=== PATIENT | female | born 1975 | race Caucasian/White ===

== ENCOUNTER 2017-02-24 07:39 | Day surgery (SDC) | payer OTHER ==
[~2017-02-24] VITALS: Ht 157.5 cm; Wt 0.9 kg
[2017-02-24 08:27] LABS: BASOPHILS 0.6 % (0.0-2.0); EOSINOPHILS 1.1 % (0-7); HEMATOCRIT 38.3 % (36.0-48.0); HEMOGLOBIN 12.2 g/dL (12-16); IMMATURE GRANULOCYTES 0.2 % (0-5); LYMPHOCYTES 9.7 % (15-50); MCH 31.9 pg (26.0-34.0); MCHC 31.9 g/dL (31.0-37.0); MONOCYTES 8.5 % (2-11); NEUTROPHILS 79.9 % (40-80); PLATELET COUNT 281 10x3/uL (130-400); RBC 3.83 10x6/uL (4.00-5.40); RDW 18.2 % (11.5-14.5); WBC 10.2 10x3/uL (4.8-10.8)
[2017-02-24 08:33] LABS: APTT 23.9 SECONDS (22.8-39.4); INR 1.06 (0.85-1.17); PROTIME 13.6 SECONDS (11.6-15.0)
[2017-02-24 08:45] LABS: ANION GAP 20.8 mmol/L (8-16); CALCIUM 9.3 mg/dL (8.5-10.1); CARBON DIOXIDE 23.9 mmol/L (21.0-32.0); CREATININE - SERUM 3.6 mg/dL (0.6-1.3); POTASSIUM - SERUM 3.7 mmol/L (3.5-5.1)
--- NOTE | 2017-02-24 10:21 | NUR ---
0957 CALLED BROTHER PREM ESQUEDA FOR CONSENTS PATIENT UNABLE TO GIVE CONSENT PATIENT WITH APHASIA APPEARANCE VERBALLY. DID NOT KNOW NAME OR BIRTHDATE. CALLED LONG-TERM AND TALKED WITH PRADEEP PALUMBO LPN FOR INFORMATION ABOUT THE PATIENT. PATIENT WAS IN LONG-TERM FOR A MOOD DISORDER AND WENT INTO RENAL FAILURE HAD TO GO TO [facility] FOR A CVA CARODIT ARTERY OBSTRUCTION BOTH SIDES VENA CAVA THROMBOSIS AND A GI BLEED. ALSO HAD A GALLSTONE HAD GALLBLADDER REMOVED AND AN ERCP RECENTLY.INFORMATION OBTAINED ON HEALTH INFORMATION FROM LONG-TERM NURSE. Slime
[2017-02-24] MEDS ORDERED: EPOGEN2000 U/ML SQ (10:26)
[2017-02-24] MEDS ORDERED: VITAMIN B COMPL1 TAB PO (10:27)
[2017-02-24] MEDS ORDERED: LOMOTIL TABLET1 TAB PO (10:27)
[2017-02-24] MEDS ORDERED: RITALIN5 MG PT (10:28)
[2017-02-24] MEDS ORDERED: CHOLESTYRAMIN4 G/PK1 PO (10:28)
[2017-02-24] MEDS ORDERED: LIPITOR10 MG PO (10:29)
[2017-02-24 10:30] VITALS: BP 92/46; Ht 157.5 cm; Wt 0.9 kg
[2017-02-24] MEDS ORDERED: CARDIZEM 90 MG90 MG PO (10:31)
[2017-02-24] MEDS ORDERED: PACERONE100 MG PO (10:32)
[2017-02-24] MEDS ORDERED: HYDRALAZINE HC100 MG PO (10:33)
[2017-02-24] MEDS ORDERED: ZOFRAN ODT4 MG/UDTAB PO (10:33)
[2017-02-24] MEDS ORDERED: FOLIC ACID1 MG PO (10:35)
[2017-02-24] MEDS ORDERED: PROTONIX40 MG PO (10:35)
[2017-02-24] MEDS ORDERED: ABILIFY15 MG PO (10:35)
[2017-02-24] MEDS ORDERED: FERROUS SULFAT140 MG PT (10:36)
[2017-02-24] MEDS ORDERED: BISAC-EVAC10 MG/SUPP RC (10:38)
[2017-02-24] MEDS ORDERED: CODEINE SULFATE30 MG PT (10:40)
[2017-02-24] MEDS ORDERED: NORCO 7.5/325 T1 TA1 PT (10:40)
[2017-02-24] MEDS ORDERED: PHENERGAN6.25 MG/5 PO (10:41)
[2017-02-24] MEDS ORDERED: ACETAMINOPHEN325 MG PO (10:41)
[2017-02-24] MEDS ORDERED: REMERON30 MG PO (10:42)
[2017-02-24] MEDS ORDERED: VITAMIN B650 MG PO (10:43)
[2017-02-24] MEDS ORDERED: VITAMIN B-121000 MCG PO (10:43)
[2017-02-24] MEDS ORDERED: BACTRIM DS TABL1 TAB PT (10:45)
--- NOTE | 2017-02-24 10:48 | NUR ---
PT MED REC ENTERED FROM JAN THAT WE RECEIVED FROM [facility]
--- NOTE | 2017-02-24 11:04 | NUR ---
[facility] NURSE WAS PRADEEP PALUMBO LPN AND RECIVED NURSING INFORMATION AND ASKED [facility]ST [facility] DOSES. REPORTED THIS TO DR. NIELSEN WAS ABLE TO OBTAIN PHONE CONSENTS FROM BROTHER.HAS SMALL SCAB ON FOEHEAD AND AREA TO COCCYX.
--- NOTE | 2017-02-24 11:18 | NUR ---
1115 REPORTED SITUATION TO ANESTHESIA LEFT HEEL REDDENED AND DRESSING TO COCCYX AREA REPOSITIONED IN BED HEELS FLOATED AND TURNED TO RT SIDE. EXPLAINED PROCEDURE TO PATIENT.
[2017-02-24 11:34] LABS: HCG SERUM NEGATIVE (NEGATIVE)
--- NOTE | 2017-02-24 14:33 | NUR ---
REPORT GIVEN TO TONI ROY RN
--- NOTE | 2017-02-24 17:58 | NUR ---
1730 IV DC LINE FLUSHED WITH 1.200 HEPRIN
--- NOTE | 2017-03-05 07:35 | OP ---
PATIENT NAME: SAUL GUSTAFSON MEDICAL RECORD: [id number] :77 LOCATION:[facility] ADMISSION DATE: SURGEON: AZALIA NIELSEN MD DATE OF OPERATION: 02/24/2017 PREOPERATIVE DIAGNOSIS: End-stage renal disease, on chronic hemodialysis. POSTOPERATIVE DIAGNOSIS: End-stage renal disease, on chronic hemodialysis. OPERATION PERFORMED: Implantation of a right axillary-axillary loop 4-7 mm taper PTFE AV graft, axillary artery to axillary vein with the arterial limb, lateral and the venous limb medial. SURGEON: Azalia Nielsen MD ANESTHESIA: Regional block plus general with LMA per LAUNDRY FOLDER. REFERRING PHYSICIAN: Wilmer Albert MD. PREOPERATIVE NOTE: Ms. Gustafson is a 41-year-old white female, who I believe has had a stroke and is alf confined. She has renal failure and is on hemodialysis and needs long-term dialysis access. She is brought to the operating room at this time with plans to implant a graft in her right upper extremity. Under initially a regional block with the addition of LMA general anesthesia, the patient prepped and draped in sterile manner. I examined her with ultrasound using a Melvindale drain for a proximal venous tourniquet and nitroglycerin paste topically. Her blood vessels were extremely small, she had very small veins, even the axillary vein was small, the axillary artery is only about 3-4 mm in diameter. 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 I made a longitudinal incision in the medial aspect of the arm over the brachial artery and basilic vein and extended this up into the axilla as a hockey stick shaped incision and exposed the axillary artery and axillary vein which were a bit larger. These vessels were controlled with Silastic loops. The artery was occluded, opened and flushed proximally and distally with heparinized saline and then a 4-7 tapered Impra venous outflow PTFE graft was chosen and the arterial and bevelled and anastomosed to the artery with running 6-0 Prolene. After which, the anastomosis was further sealed with Evicel and then it was found to be hemostatic. The graft was aspirated and some clot retrieved. It was then flushed with heparinized saline and further flushing the artery proximally and distally with heparinized saline as well. The graft was placed in a superficial subcutaneous tunnel, brought back around and up medially to the axillary wound. It was bevelled and anastomosed end-to-side to the axillary vein with running 6-0 Prolene. Enseal or Evicel was used on that suture line as well and after release of all of the occluding loops and clamps satisfactory, flow was established in her AV graft despite low systemic blood pressure. One counter incision was made on the arm distally just above the antecubital space. These wounds were irrigated with Ancef and gentamicin solution, infiltrated and irrigated with 0.25% Marcaine with epinephrine and closed without the use of a drain approximating the deeper subcutaneous tissues with interrupted inverted 3-0 Vicryl and skin with running intracuticular 4-0 Monocryl and Dermabond glue. OPERATIVE REPORT [id number] SAUL GUSTAFSON The incisions were dressed with Maxorb Ag, Tegaderm and Cavilon skin prep and the patient awakened and taken to the recovery room with a functioning AV graft. There was no blood loss during the procedure. All sponges, instruments and needles were accounted for. No drain was used and no surgical specimen was submitted for histopathology. PLAN: The patient will be allowed to go home today. She will follow up with me in my office in 2 weeks. She will continue routine dialysis schedule. We expect that we should be able to access her new graft in about 2 weeks for access and soon after that; however catheter removed. She will continue her previous medications and renal diet. Also, I have asked that an order be called to the alf for tramadol 50 mg 1or 2 p.o. q.4 hours p.r.n. for pain. TRANSINT:[id number] Voice Confirmation ID: [id number] DOCUMENT ID: [id number] AZALIA NIELSEN MD at 0735 CC: [id number] DICTATION DATE: 02/24/17 161 CLERICAL ADMINISTRATIVE ASSISTANT: 02/24/171921 [facility] 02/24/17 [facility] [address] [id number]
== END 2017-02-24 17:50 | disposition other institution (70) ==
LOC: D.OPS 07:39
PROVIDERS: Anesthesiology; Surgery
DX: I12.0 Hypertensive chronic kidney disease with stage 5 chronic kidney disease or end stage renal disease (principal); N18.6 End stage renal disease; Z99.2 Dependence on renal dialysis; Z87.891 Personal history of nicotine dependence; Z86.73 Personal history of transient ischemic attack (TIA), and cerebral infarction without residual deficits

== ENCOUNTER 2017-03-13 12:48 | Inpatient (IN) | payer MEDICAID ==
[~2017-03-13] VITALS: Ht 157.5 cm; Wt 62.6 kg
[~2017-03-13 12:48] MED LIST: ABILIFY15 MG PO; ACETAMINOPHEN325 MG PO; BACTRIM DS TABL1 TAB PT; BISAC-EVAC10 MG/SUPP RC; CARDIZEM 90 MG90 MG PO; CHOLESTYRAMIN4 G/PK1 PO; CODEINE SULFATE30 MG PT; EPOGEN2000 U/ML SQ; FERROUS SULFAT140 MG PT; FOLIC ACID1 MG PO; HYDRALAZINE HC100 MG PO; LIPITOR10 MG PO; LOMOTIL TABLET1 TAB PO; NORCO 7.5/325 T1 TA1 PT; PACERONE100 MG PO; PHENERGAN6.25 MG/5 PO; PROTONIX40 MG PO; REMERON30 MG PO; RITALIN5 MG PT; VITAMIN B COMPL1 TAB PO; VITAMIN B-121000 MCG PO; VITAMIN B650 MG PO; ZOFRAN ODT4 MG/UDTAB PO
--- NOTE | 2017-03-13 12:54 | NUR ---
1245-RECEIVED VIA STRETCHER TO ROOM WITH MON CATH IN PLACE, NO DATE. CLOUDY YELLOW URINE SEEN TO BAG. RIGHT ANTERIOR T BAG (?) SEEN WTIH CLEAR DRAINAGE. PEG TUBE, CLAMPLED SEEN. RIGHT CHEST HEMISPLT WITH DRY INTACT DRESSING NO DATE. RIGHT UPPER ARM NEAR AXILLARY WITH DATE 03/02/17 AND WHITE PUS SEEN ABOUVE THAT. PATIENT IS UNBALE TO MOVE RIGHT FOOT, STATES THAT SHE HAS HAD A STROKE RECENTLY. RIGHT HAND IS WEAKER TO SQUEEZE. LEFT HEEL IS SOFT AND MUSHY, RIGHT OUTER ANKLE WITH RED, UNBLANCHABLE AREA. RIGHT BREAST SEEN WTIH LARGE BRUISED AREA. WILL TRY AND ADMIT.
[2017-03-13 14:17] VITALS: BP 138/63; BMI 25.3
--- NOTE | 2017-03-13 14:46 | NUR ---
HISTORY DONE TO THE BEST OF MY KNOWLEDGE, WAITING ON [facility] TO FAX HOME MEDICATIONS WITH LAST TIME TAKEN. PROVIDED DRESSING CHANGE TO RIGHT UPPER ARM, SITE RED, OPEN SORE AND OOZING WHITE DISCHARGE. ALSO CHANGED HEMISPLIT DRESSING USING STERILE TECHNIQUE, PT ONLY ALERT TO SELF, UNABLE TO GET IV ACCESS, WILL SEE IF SOMEONE ELSE CAN START IV. NAD NOTED, CALL LIGHT IN REACH, WILL CONTINUE TO MONITOR.
[2017-03-13 16:19] LABS: ANION GAP 18.2 mmol/L (8-16); CALCIUM 9.3 mg/dL (8.5-10.1); CARBON DIOXIDE 24.1 mmol/L (21.0-32.0); CREATININE - SERUM 4.9 mg/dL (0.6-1.3); POTASSIUM - SERUM 4.3 mmol/L (3.5-5.1)
[2017-03-13 17:16] VITALS: BP 126/50
[2017-03-13] MEDS ORDERED: SODIUM BICARBO650 MG PO (17:33)
[2017-03-13] MEDS ORDERED: LEVAQUIN250 MG PO (17:35)
--- NOTE | 2017-03-13 18:15 | NUR ---
OLD CATHETER THAT PT CAME WITH FROM ALF, WAS REMOVED AND NEW 16F MON CATH PLACED USING STERILE TECHNIQUE. PT TOLERATED PROCEDURED WELL, NAD NOTED, CALL LIGHT IN REACH, PT DENIES ANY NEEDS AT THIS TIME. WILL CONTINUE TO MONITOR.
[2017-03-13 20:00] VITALS: BP 103/45
--- NOTE | 2017-03-13 20:40 | NUR ---
ADMIN SCHED MEDS. HELD APRESOLINE FOR B/P 103/45. STATED "YES" TO ACKNOWLEDGE THAT SHE IS HAVING SURGERY TOMORROW ON HER FISTULA. DENIES PAIN OR ANY OTHER NEEDS. RT CHEST HEMESPLIT NOTED. ASSESSMENTS SHOW A PEG TUBE INSERTED IN UPPER ABD, A DRAINAGE BAG INSERTED IN RT UPPER ABD THAT IS EMPTIED AND A MON CONTAINING SMALL AMT IN TUBE ONLY. THERE IS NO IV ACCESS AND TOLD IN REPORT THAT "FRANNIE, VENOUS ACCESS NURSE" NOTIFIED TO START AN IV. ORIENTED TO CALL LIGHT FOR ANY NEEDS. DOES SAY YES OR NO TO QUESTIONS.
--- NOTE | 2017-03-13 23:00 | NUR ---
CALLED [facility] RE: NO SHOW FOR DAMEON KATHLEEN TO DO IV. INFORMED THAT SHE HAD LEFT TODAY AT 4 P.M.
--- NOTE | 2017-03-14 00:28 | NUR ---
TRIED TO DO IV WITH NO SUCCESS. ICU NURSE TRIED ALSO WITH NO SUCCESS. CALLED JACKY DARDEN APN AND AUTHORIZE TO USE HEMESPLIT TO GIVE IV ANTIBIOTICS ORDERED AND THEN HEPARINIZED WHEN FINISHED.
--- NOTE | 2017-03-14 00:45 | NUR ---
CALLED [facility] TO PULL VANCOMYCIN.
[2017-03-14 00:48] VITALS: BP 107/41
--- NOTE | 2017-03-14 03:20 | NUR ---
REMOVED HEPARIN FROM HEMESPLIT BLUE PORT, FLUSHED WITH 10CC SALINE. ADMIN VANCOMYCIN.
[2017-03-14 04:59] VITALS: BP 131/51
--- NOTE | 2017-03-14 05:50 | NUR ---
FLUSHED HEMESPLIT BLUE PORT WITH NORMAL SALINE AFTER IV ANTIBIOTICS FINISHED. INJECTED 1.7ML (1,700 UNITS) HEPARIN IN BLUE PORT.
--- NOTE | 2017-03-14 06:45 | NUR ---
RECEIVED REPORT FROM PATROL SUPERVISOR NURSE, JEAN XIAO. PT WAS ABLE TO VERBALIZED WHAT KIND OF SURGERY IS WAS GOING TO HAVE TODAY. CONSENTS SIGNED AND PLACED ON CHART. PT DENIES ANY NEEDS AT THIS TIME, CALL LIGHT IN REACH, NAD NOTED, WILL CONTINUE TO MONITOR.
[2017-03-14 07:44] LABS: BASOPHILS 0.7 % (0.0-2.0); EOSINOPHILS 3.3 % (0-7); HEMATOCRIT 25.9 % (36.0-48.0); HEMOGLOBIN 8.3 g/dL (12-16); IMMATURE GRANULOCYTES 0.2 % (0-5); LYMPHOCYTES 31.3 % (15-50); MCH 31.4 pg (26.0-34.0); MCV 98.1 fL (80.0-100.0); MEAN PLATELET VOLUME 9.5 fL (7.4-10.4); MONOCYTES 6.2 % (2-11); NEUTROPHILS 58.3 % (40-80); PLATELET COUNT 312 10x3/uL (130-400); RBC 2.64 10x6/uL (4.00-5.40); RDW 17.2 % (11.5-14.5); WBC 5.8 10x3/uL (4.8-10.8)
[2017-03-14 07:49] VITALS: BP 122/50
[2017-03-14 08:02] LABS: ANION GAP 17.9 mmol/L (8-16); CALCIUM 8.9 mg/dL (8.5-10.1); CARBON DIOXIDE 23.2 mmol/L (21.0-32.0); CREATININE - SERUM 5.7 mg/dL (0.6-1.3); POTASSIUM - SERUM 4.1 mmol/L (3.5-5.1)
[2017-03-14 08:11] LABS: APTT 29.5 SECONDS (22.8-39.4); INR 1.01 (0.85-1.17); PROTIME 13.1 SECONDS (11.6-15.0)
--- NOTE | 2017-03-14 09:36 | NUR ---
WOUND CARE CONSULT: PER DR. NIELSEN'S ORDER-CULTURED WOUND (RIGHT AXILLA). WOUND HAS AREAS OF NECROTIC CARLISLE TISSUE. CLEANSED WOUND AND PATTED DRY. OBTAINED CULTURES. COVERED WITH 4X4S AND SECURED WITH MEDIPORE TAPE. RIGHT LAT ANKLE HAS RED NON-BLANCHABLE 2CM X 2CM AREA - STAGE 1 PRESSURE INJURY. COVERED TO PROTECT WITH MEPILEX FOAM DRESSING. LEFT HEEL IS SOFT/NON-BLANCHABLE WITH PARTIAL THICKNESS SKIN LOSS - STAGE 2 PRESSURE INJURY. COVERED WITH MEPILEX FOAM DRESSING. PT GOING TO SURGERY TODAY/ WILL CONITNUE TO MONITOR.
--- NOTE | 2017-03-14 10:25 | NUR ---
PRE-OP MEDS GIVEN ORDER, PT TRANSFERED TO OR VIA BED, NAD NOTED.
[2017-03-14 12:42] VITALS: Ht 157.5 cm; Wt 62.6 kg
[2017-03-14 12:50] VITALS: BP 136/52
--- NOTE | 2017-03-14 13:05 | NUR ---
PT TRANSFERED BACK TO ROOM 2105 VIA BED, VITAL SIGNS STABLE, DR. NIELSEN DID WOUND DEBRIMENT AND APPLIED WOUND BACK TO INCISION, PT DENIES ANY PAIN AT THIS TIME. CALL LIGHT IN REACH, NAD NOTED, WILL CONTINUE TO MONITOR.
--- NOTE | 2017-03-14 14:00 | NUR ---
PT TRANSFERED TO DIALYSIS VIA BED, NAD NOTED.
--- NOTE | 2017-03-14 18:06 | NUR ---
PT REFUSED TO WEAR SCD'S AT THIS TIME, WILL WEAR THEM AT NIGHT.
[2017-03-14 19:00] VITALS: BP 108/60
[2017-03-15 01:25] VITALS: BP 99/51
[2017-03-15 04:00] VITALS: BP 106/52
[2017-03-15 05:32] LABS: BASOPHILS 0.6 % (0.0-2.0); EOSINOPHILS 2.5 % (0-7); HEMATOCRIT 26.2 % (36.0-48.0); HEMOGLOBIN 8.3 g/dL (12-16); IMMATURE GRANULOCYTES 0.2 % (0-5); LYMPHOCYTES 28.1 % (15-50); MCH 31.7 pg (26.0-34.0); MCHC 31.7 g/dL (31.0-37.0); MEAN PLATELET VOLUME 9.7 fL (7.4-10.4); MONOCYTES 9.8 % (2-11); NEUTROPHILS 58.8 % (40-80); PLATELET COUNT 297 10x3/uL (130-400); RBC 2.62 10x6/uL (4.00-5.40); RDW 17.4 % (11.5-14.5); WBC 5.2 10x3/uL (4.8-10.8)
[2017-03-15 05:47] LABS: CALCIUM 8.7 mg/dL (8.5-10.1); CARBON DIOXIDE 27.6 mmol/L (21.0-32.0)
[2017-03-15 06:00] LABS: CREATININE - SERUM 3.8 mg/dL (0.6-1.3)
[2017-03-15 06:15] LABS: ANION GAP 14.1 mmol/L (8-16); POTASSIUM - SERUM 3.7 mmol/L (3.5-5.1)
[2017-03-15 07:49] VITALS: BP 105/52
--- NOTE | 2017-03-15 10:49 | NUR ---
PATIENT RESTING QUIETLY WITH EYES CLOSED. RESPIRATIONS DEEP AND EVEN. STUDENT NURSE ADMINISTERING MEDICATIONS.
[2017-03-15 11:29] VITALS: BP 109/60
--- NOTE | 2017-03-15 13:05 | NUR ---
Right groin CVL dressing removed and site prepped utilizing sterile technique and new dressing secured. NO s/s infection noted.
--- NOTE | 2017-03-15 13:06 | NUR ---
Right upper chest hemosplit dressing change completed utilizing sterile technique. NO s/s infection
--- NOTE | 2017-03-15 13:15 | NUR ---
DIALYSIS COORDINATOR: PATHWAYS: [facility] 10:30. ERIC DC
--- NOTE | 2017-03-15 13:15 | OP ---
PATIENT NAME: SAUL GUSTAFSON MEDICAL RECORD: [id number] :[birth year] LOCATION:D.M2 D.2105 ADMISSION DATE:03/13/17 SURGEON: AZALIA NIELSEN MD DATE OF OPERATION: 03/14/2017 PREOPERATIVE DIAGNOSIS: Wound dehiscence with marginal skin and subcutaneous fat necrosis in the right axilla with exposed underlying PTFE AV graft implanted between the axillary vein and axillary artery about 3 weeks ago. POSTOPERATIVE DIAGNOSIS: Wound dehiscence with marginal skin and subcutaneous fat necrosis in the right axilla with exposed underlying PTFE AV graft implanted between the axillary vein and axillary artery about 3 weeks ago. OPERATION PERFORMED: Wound exploration with sharp excisional debridement and irrigation and application of a wound VAC dressing. SURGEON: Azalia Nielsen MD. ANESTHESIA: General with LMA per EVENT LIGHTING SPECIALIST. REFERRING PHYSICIAN: Bebo Lopez MD. PREOPERATIVE NOTE: Ms. 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 She presently is dialyzing with a right internal jugular HemoSplit tunneled dialysis catheter and is about 3 weeks or a month status post implantation of a PTFE loop AV graft in the right arm and axilla. I learned yesterday that the patient's wound has been infected and saw photographs of it yesterday demonstrating wound dehiscence, I could not see exposed vascular graft in those photographs, but felt the patient needed to be urgently readmitted to the hospital and return to the operating room for wound exploration and debridement and possibly even removal of her vascular graft and she is brought to the operating room for that today. DESCRIPTION OF PROCEDURE: Under general anesthesia, the patient was prepped and draped in sterile manner. The wound was examined and found that there was predominantly avascular tight marginal skin and subcutaneous fat necrosis. There was no evidence of purulence and no odor. The wound was sharply debrided of necrotic skin margin and necrotic fat and I noted that there was an exposed area of PTFE at the base of the wound. It did not appear to be clinically grossly infected, although certainly is contaminated and must be treated as an infected vascular graft. The wound was irrigated with saline and then dressed with a wound VAC dressing using a antonio silver-containing sponge and set to a continuous negative 125 mmHg suction. I then also went on to provide additional central venous access for antibiotics, so that her HemoSplit catheter would not have to be used and with sterile aseptic full barrier technique with full barrier precautions and ultrasound guidance, we implanted a triple lumen ARROWg+tory catheter percutaneously in the right common femoral vein. It was heparin locked, sutured to the skin at the entry site with 2-0 silk and sterile dressing applied. The patient was then awakened and taken to the recovery room in stable condition. There was no blood loss during the procedure. All sponges, OPERATIVE REPORT [id number] [facility] instruments and needles were accounted for. No drain was used. No tissue was submitted for histopathology, but some of the necrotic skin and fat were sent for culture. PLAN: The patient will be kept in the hospital on systemic antibiotics and wound VAC wound care until we can reestablish some healthy granulation tissue in the wound and obtain coverage of the underlying PTFE. She will likely need to be discharged to return to a intermediate where she can receive a VAC therapy and continue antibiotics on dialysis for longer period of time. Note, the graft is patent with continuous pulsatile Doppler flow within it and possibly could be utilized now within another couple of weeks. TRANSINT:[id number] Voice Confirmation ID: [id number] DOCUMENT ID: [id number] AZALIA NIELSEN MD at 1315 CC: [id number] DICTATION DATE: 03/14/17 1241 LINE TESTER: 03/15/17 0027 ADM IN [facility] [address] [place] [address]
--- NOTE | 2017-03-15 14:55 | NUR ---
Patient Name: SAUL GUSTAFSON Admission Status: Elective Accout number: [id number] Admission Date: 03-13-2017 : 1975 Admission Diagnosis: Attending: VIDHYA Current LOS: 2 Anticipated DC Date: TO BE DETERMINED Planned Disposition: Retirement Facility Primary Insurance: MEDICAID [place] PLANNED EXTERNAL PROVIDER: [facility], [facility] MEDICAID BED Discharge Planning Comments: * Is the patient Alert and Oriented? Yes 0 * How many steps to enter\exit or inside your home? NONE 0 * PCP DR. GARCIA 0 * Pharmacy [facility] [place] 0 * Preadmission Environment Retirement Facility 0 * Facility Name [facility] 0 * ADLs Partial Dependent 0 * Partial ADLs (Assistance needed) Bathing Medication Management Transfers 0 * Equipment Other 0 * Other Equipment ALL EQUIPMENT PROVIDED BY [facility] FACLITY 0 * List name and contact numbers for known caregivers / representatives who currently or will assist patient after discharge: PREM RIVERA, BROTHER, 0 * Community resources currently utilized None 0 * Please name any agencies selected above. OTHER 0 OUTPATIENT DIALYSIS ON , 1030AM. * Additional services required to return to the preadmission environment? No 0 * Can the patient safely return to the preadmission environment? Yes 0 * Has this patient been hospitalized within the prior 30 days at any hospital? No 0 EVITA MET WITH PT IN ROOM TO DISCUSS DISCHARGE PLANNING AND NEEDS. PT REPORTS LIVING SOMEWHERE. SHE RECEIVES DIALYSIS BUT DOES NOT KNOW WHERE OR WHEN. PT HAS NO MEDICAL EQUIPMENT. CM DISCUSSED ORDER FOR WOUND VAC AFTER SHE LEAVES THE HOSPITAL. PT CANNOT REMEMBER THE NAME OF WHERE SHE LIVES AND DIRECTED CM TO CALL HER BROTHER, PREM. CM CALLED PREM ALICEA, . LEFT MESSAGE ASKING FOR RETURN CALL. EVITA SPOKE TO TAWANDA OF [facility]IENT [facility], PT HAS OUTPATIENT DIALYSIS ON , 1030AM. CM REVIEWED CHART, LOCATED PT'S PLACEMENT INFORMATION FOR TIPPLE SUPERVISOR CARE. CM CALLED [facility], , SPOKE TO AUTOMATIC BEADING LATHE OPERATOR ILSA, DISCUSSED NEED FOR WOUND VAC. PARTICIA WILL EXPLORE WHAT SHE NEEDS TO DO TO OBTAIN THE EQUIPMENT AND WILL CALL CM BACK. CM FAXED CHART INFORMATION TO [facility], . CM WAITING WOUND VAC ARRANGEMENTS BY [facility]. PT TO RETURN TO [facility] AT [facility] AT DISCHARGE. FAX DISCHARGE INFORMATION TO [phone], NURSE REPORT TO BE CALLED TO [facility] AT [phone]. [facility] TO ARRANGE VAN TRANSPORTATION. Realty Loan Specialist: Jared Kirk
[2017-03-15 15:15] VITALS: BP 108/59
[2017-03-15 19:00] VITALS: BP 118/56
--- NOTE | 2017-03-15 20:15 | NUR ---
PT RESTING IN BED. ALERT/ORIENTED. NO DISTRESS. WILL BE NPO AFTER MIDNIGHT FOR REPLACEMENT OF PEG TUBE IN AM. SEE ASSESSMENT. CPOC. CALL LIGHT IN REACH.
[2017-03-16] VITALS: BP 122/47
[2017-03-16 04:00] VITALS: BP 109/48
[2017-03-16 06:57] LABS: BASOPHILS 0.5 % (0.0-2.0); EOSINOPHILS 2.5 % (0-7); HEMATOCRIT 25.9 % (36.0-48.0); HEMOGLOBIN 8.3 g/dL (12-16); IMMATURE GRANULOCYTES 0.2 % (0-5); LYMPHOCYTES 36.1 % (15-50); MCH 31.8 pg (26.0-34.0); MCV 99.2 fL (80.0-100.0); MEAN PLATELET VOLUME 9.6 fL (7.4-10.4); MONOCYTES 10.4 % (2-11); NEUTROPHILS 50.3 % (40-80); PLATELET COUNT 284 10x3/uL (130-400); RBC 2.61 10x6/uL (4.00-5.40); RDW 17.4 % (11.5-14.5)
[2017-03-16 07:20] LABS: ANION GAP 17.2 mmol/L (8-16); CALCIUM 8.6 mg/dL (8.5-10.1); CARBON DIOXIDE 25.5 mmol/L (21.0-32.0); PHOSPHOROUS 6.7 mg/dL (2.5-4.9); POTASSIUM - SERUM 3.7 mmol/L (3.5-5.1)
[2017-03-16 07:22] LABS: CREATININE - SERUM 5.7 mg/dL (0.6-1.3)
--- NOTE | 2017-03-16 07:50 | NUR ---
PATIENT OBSERVED EATING BREAKFAST AND WAS ORDERED NPO FOR PEG REPLACEMENT HOWEVER HAS BEEN EATING WITHOUT DIFFICULTY SINCE BEING HOSPITALIZED. SPOKE WITH AMADEO IN SPECIALS.
[2017-03-16 08:15] VITALS: BP 116/51
--- NOTE | 2017-03-16 10:00 | NUR ---
DOWN TO DIALYSIS VIA BED. CURRENTLY ON CONTACT ISOLATION PENDING RESULTS OF WOUND CULTURE OF RIGHT AXILLARY.
--- NOTE | 2017-03-16 10:40 | NUR ---
Nutrition follow-up: Nepro ordered to begin @ 20 ml/hr Pt also has been eating ~50% of meals. Labs reviewed Wt: 138# Recommend goal rate of TF to be 35 ml/hr. If pt with good po intake, may need to begin bolus feedings of 1 can of Nepro is PO intake at meals is < 50%. RDN following.
--- NOTE | 2017-03-16 13:20 | NUR ---
BACK FROM DIALYSIS. SLOW TO PROCESS AND EXPRESS SELF. EXPLAINED SHE IS NO LONGER NPO DUE TO CANCELLATION OF PEG REPLACEMENT. LUNCH WARMED AND SERVED TO PATIENT. WOUND TO RIGHT AXILLARY CONNECTED TO WOUND VAC. MON TO GRAVITY DRAINING SMALL AMOUNT OF DARK URINE. NO C/O VOICED. CALL LIGHT WITHIN REACH.
[2017-03-16 16:00] VITALS: BP 101/52
--- NOTE | 2017-03-16 20:03 | NUR ---
RESTING IN BED WITH EYES CLOSED. RIGHT GROIN CVL SALINE LOCKED. AVF TO LFA, RESERVE LEFT ARM. RIGHT AXILLARY WOUND/INCISION WITH WOUND VAC IN PLACE. PEG IN ABDOMEN THAT IS NOT BEING USED, SHE IS EATING TRAYS WITH SET UP HELP AND ASSISTANCE. CPOC. CALL LIGHT IN REACH.
[2017-03-16 20:13] VITALS: BP 109/56
[2017-03-17 02:00] VITALS: BP 102/56
[2017-03-17 05:50] LABS: BASOPHILS 0.2 % (0.0-2.0); EOSINOPHILS 1.3 % (0-7); HEMATOCRIT 26.9 % (36.0-48.0); HEMOGLOBIN 8.6 g/dL (12-16); IMMATURE GRANULOCYTES 0.2 % (0-5); LYMPHOCYTES 18.9 % (15-50); MCH 31.6 pg (26.0-34.0); MCV 98.9 fL (80.0-100.0); MEAN PLATELET VOLUME 9.2 fL (7.4-10.4); MONOCYTES 8.6 % (2-11); NEUTROPHILS 70.8 % (40-80); PLATELET COUNT 269 10x3/uL (130-400); RBC 2.72 10x6/uL (4.00-5.40); RDW 17.7 % (11.5-14.5)
[2017-03-17 05:54] LABS: CALCIUM 8.9 mg/dL (8.5-10.1); CARBON DIOXIDE 28.2 mmol/L (21.0-32.0); POTASSIUM - SERUM 3.2 mmol/L (3.5-5.1); VANCOMYCIN - RANDOM 14.7 ug/mL (10.0-20.0)
--- NOTE | 2017-03-17 07:49 | NUR ---
AM ROUNDING- RECEIVED REPORT FROM VENEER GLUE JOINTER FEEDBACK NURSE CHAO. PT IS CURRENTLY LAYING IN BED ON BACK WITH EYES CLOSED RESTING. PT IS ALERT TO SELF AND ABLE TO ANSWER SIMPLY (FEW) QUESTIONS. IN CONTACT ISOLATION FOR POSSIBLE MRSA TO WOUND PER REPORT. R-GROIN CVL SEEN FOR NURSE IV ACCESS PER REPORT. LEFT ARM RESERVE FOR AVF. PEG TUBE SEEN TO ABDOMINAL AREA THAT PER REPORT IS NOT IN USE D/T BEING CLOGGED (PT IS EATING/DRINKING). ON ROOM AIR. NO MONITOR. DRESSING SEEN TO RIGHT UPPER AXILLIARY AREA WITH WOUND VAC. DRAINAGE TUBE SEEN TO ABDOMINAL AREA WITH DRAINAGE BAG ATTATCHED. SCDS ARE ON. MON CATHETER SEEN WITH YELLOW URINE. NO NEED AT CURRENT TIME. WILL CONTINUE TO MONITOR AND CONTINUE WITH PLAN OF CARE.
[2017-03-17 08:14] VITALS: BP 95/47
--- NOTE | 2017-03-17 11:47 | NUR ---
Patient Name: SAUL GUSTAFSON Encounter No: [id number] : 1975 Primary Insurance: MEDICAID [facility] DC Date: 03-17-2017 Planned Disposition: Nursing Facility [facility] Cert External Planned Provider: NIECY MURO, LEAD ELECTRICAL CONTROLS ENGINEER CARE MEDICAID BED DCP follow-up note: CM RECEIVED MESSAGE THAT PHYSICAN IS READY TO DISCHARGE ONCE WOUND VAC IS ARRANGED. CM CALLED [facility], , LEFT MESAGE FROM TREATMENT NURSE STIVEN TO CALL CM SOON POSSIBLE, NOTIFIED OF PT BEING READY TO DISCHARGE ONCE FACLITY ARRANGES WOUND VAC. CM RECEIVED RETURN CALL FROM JOURNEYMAN PIPE FITTER ILSA, DISCUSSED NEED FOR WOUND VAC TO DISCHARGE TODAY IF POSSIBLE. PARTICIA WILL WORK ON OBTAINING THE EQUIPMENT AND WILL CALL CM BACK. CM FAXED UPDATED CHART INFORMATION TO [facility], . CM RECEIVED CALL BACK FROM ILSA OF [facility], THEY HAVE THE WOUND VAC BEING DELIVERED TODAY AND WILL HAIR WEAVER PT TODAY AFTER DISCHARGE VIA VAN. PT NOTIFIED AND IN AGREEMENT WITH RETURN. CM TO FAX DISCHARGE INFORMATION TO [phone], NURSE REPORT TO BE CALLED TO [facility] AT [phone]. [facility]. Buhr Mill Operator: Jared Kirk
--- NOTE | 2017-03-17 13:03 | NUR ---
KEVYN, WOUND CARE NURSE IS IN ROOM CURRENTLY CHANGING PTS DRESSING WITH WOUND VAC TO RIGHT UPPER ARM.
[2017-03-17 13:14] VITALS: BP 98/49
--- NOTE | 2017-03-17 13:21 | NUR ---
WOUND CARE/VAC DRESSING CHANGE:WOUND VAC DRESSING CHANGE WOUND TYPE: SURGICAL WOUND LOCATION: RIGHT AXILLA WOUND AGE IN MONTHS:DAYS DEBRIDEMENT ATTEMPTED IN LAST 10 DAYS? DATE/TYPE: SERIAL DEBRIDEMENTS REQUIRED? NO MEASUREMENT DATE: 03/17/17 5CM X 2CM X 1CM FULL THICKNESS? YES MUSCLE, TENDON OR BONE EXPOSED? NO UNDERMINING? NO TUNNELING/SINUS? NO APPEARANCE OF WOUND BED : RED HEALTHY EXUDATE (AMOUNT, COLOR, ODOR): SMALL BLOODY NO ODOR FOAM TYPE: SILVER # OF PIECES USED: 2 -125MMHG MOD CONTINUOUS PT TOLERATED WELL.
--- NOTE | 2017-03-17 13:46 | NUR ---
1340- CVL REMOVED ORDERED WITH CATH TIP INTACT. COVERED SITE WITH 4X4 GUAZE PADS AND SECURED SITE WITH TEGADERM. APPLIED DIRECT FIRM PRESSURE FOR 5 MINUTES WITH NO BLEEDING SEEN. 1347- RECHECKED SITE WITH NO BLEEDING SEEN.
--- NOTE | 2017-03-17 14:19 | NUR ---
STAFF FROM [facility] IS HERE TO PICK PT UP. PT IS IN WHEELCHAIR. CHECKED SITE WHERE CVL WAS REMOVED TO RIGHT GROIN AREA WITH DRESSING INTACT AND NO BLEEDING SEEN. INSTRUCTED CAREGIVER TO APPLY FIRM/DIRECT PRESSURE IF SITE STARTS TO BLEED FOR ANY REASON, CAREGIVER AGREED. D/C PACKET WITH INFORMATION GIVEN TO CAREGIVER. PT D/C VIA WHEELCHAIR.
--- NOTE | 2017-03-17 14:25 | NUR ---
PT D/C WITH CHRONIC MON INTACT. PEG TUBE IS IN PLACE. RIGHT CHEST HEMOSPLIT INPLACE WITH DRESSING INTACT ORDERED FOR DIALYSIS. CHRONIC BILIARY DRAIN IN PLACE WITH DRAINAGE BAG (WITH SLIGHTLY YELLOW DRAINAGE) TO ABDOMINAL AREA.
[2017-03-20 19:10] LABS: AEROBE ID Final report (())
== END 2017-03-17 14:32 | DRG 901 ==
LOC: D.M2 12:48
PROVIDERS: Surgery; ADMIT Internal Medicine Nephrology
PROC: 0JBF0ZZ Excision of Left Upper Arm Subcutaneous Tissue and Fascia, Open Approach (ICD-10-PCS; principal; 2017-03-14 10:00)
PROC: 5A1D60Z (ICD-10-PCS; 2017-03-14 10:00)
DX: T81.31XA Disruption of external operation (surgical) wound, not elsewhere classified, initial encounter (principal); N18.6 End stage renal disease; E87.1 Hypo-osmolality and hyponatremia; I12.0 Hypertensive chronic kidney disease with stage 5 chronic kidney disease or end stage renal disease; Y83.8 Other surgical procedures as the cause of abnormal reaction of the patient, or of later complication, without mention of misadventure at the time of the procedure; E11.22 Type 2 diabetes mellitus with diabetic chronic kidney disease; D63.1 Anemia in chronic kidney disease; F32.9 Major depressive disorder, single episode, unspecified; M79.89 Other specified soft tissue disorders; Z99.2 Dependence on renal dialysis; Z86.73 Personal history of transient ischemic attack (TIA), and cerebral infarction without residual deficits

== ENCOUNTER 2017-07-03 15:40 | Inpatient (IN) | payer MEDICAID ==
[~2017-07-03] VITALS: Ht 157.5 cm; Wt 61.2 kg
--- NOTE | ~2017-07-03 | HP ---
PATIENT: SAUL GUSTAFSON MEDICAL RECORD: [id number] ACCOUNT: [id number] LOCATION:[facility] D.2137 : 77 ADMISSION DATE: 07/03/17 HISTORY AND PHYSICAL EXAMINATION HISTORY OF PRESENT ILLNESS: This is a 41-year-old female with a past medical history of ESRD, but transferred into our unit from another facility after starting dialysis. 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 She had difficulty eating and had to have a PEG tube placed. She has a graft placed, 02/24/2017 that has clotted. REVIEW OF SYSTEMS: All review of systems are negative with the patient that she generally nonverbal due to her CVA. PAST MEDICAL HISTORY: 1. 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 2. Aphasia. 3. PEG tube placement. 4. Anemia of CKD. 5. Hyperphosphatemia. 6. Depression. 7. History of heart arrhythmia that is nonspecific in her history and physical. 8. Hypertension and also depression and mood disorder. 9. Edema. 10. Hyperlipidemia. 11. Neuropathy. 12. GERD. SURGICAL HISTORY: 1. Cholecystectomy, ERCP with biliary bag. 2. Graft placement by Dr. Roman. 3. HemoSplit placement. ALLERGIES: NKDA. SOCIAL HISTORY: She is a assisted resident. No tobacco, alcohol or illicit drugs. HOME MEDICATIONS: Amiodarone twice a day except on dialysis days, aripiprazole 10 mg twice a day, Cholestyramine 1 pack a twice a day, codeine 30 mg J-tube every 6 hours, vitamin B12 one a day, diltiazem 90 four times a day, folic acid one a day, Lasix 40 mg a day, Lipitor 10 a day; hydralazine 100 except were held on dialysis days, 4 times a day; Lomotil p.r.n., mirtazapine 30 mg at night, Protonix 40 mg a day, PhosLo 3 capsules with meals 667, promethazine 12.5 p.r.n., vitamin B6, Ritalin 5 mg a day, Carafate 1 g daily, Tylenol p.r.n., Zofran p.r.n. We will have to obtain an accurate medication list. PHYSICAL EXAMINATION: GENERAL: She is resting, aphasic. HEENT: Normocephalic, atraumatic. Extraocular muscles are grossly intact. GENITOURINARY: J-tube is noted, graft is clotted with no flow or sign of infection. CHEST: Regular rhythm. S1 and S2. HISTORY AND PHYSICAL [id number] HORSTCAMP,SAUL LUNGS: Grossly clear to auscultation except for decreased breath sounds at the bases. ABDOMEN: Positive lower extremity edema. SKIN: No new neurological deficits. ASSESSMENT AND PLAN: 1. We will order stat BMP, CBC and INR. She is difficult to communicate with. We had intended for her to come to the [facility]; however, we had difficulty with transportation and she is going to have a mechanical thrombectomy with Dr. Roman. She may be also in need of anesthesia consult for comfort during mechanical thrombectomy and she is nonverbal and difficult to communicate with and this is generally done with conscious sedation as an outpatient. 2. End-stage renal disease. We will need stat lab to check her BUN, potassium, CO2, metabolic acidosis status. 3. Edema. We will be cautious with fluids is in need of dialysis. 4. Anemia of chronic kidney disease. Check hematocrit. 5. Hyperlipidemia, has been on Lipitor. 6. Mood disorder and depression, difficult to determine her mood when she is nonverbal. 7. Nutrition, has a J-tube and will resume tube feeding as needed. 8. Cardiac arrhythmia. She is on amiodarone, which is likely suspicious for previous atrial fibrillation. 9. Carotid artery rupture per her past medical history before entering our system. 10. Hyperphosphatemia. 11. Secondary hyperparathyroidism. 12. Deconditioning due to her condition. PLAN: Please see orders. Appreciate Dr. Roman. TRANSINT:[id number] Voice Confirmation ID: [id number] DOCUMENT ID: [id number] HU GAGNON MD CC: [id number] DICTATION DATE: 07/03/17 1312 OPERATIONS CONTROLLER: 07/03/17 1432 ADM IN [facility] [address] [place] [address]
--- NOTE | ~2017-07-03 | OP ---
PATIENT NAME: SAUL GUSTAFSON MEDICAL RECORD: [id number] :77 LOCATION:D. D.2137 ADMISSION DATE:07/03/17 SURGEON: AZALIA NIELSEN MD DATE OF OPERATION: 07/04/2017 PREOPERATIVE DIAGNOSES: End-stage renal disease with dependence on hemodialysis and thrombosis of right arm axillo-axillary loop polytetrafluorethylene arteriovenous graft. POSTOPERATIVE DIAGNOSES: End-stage renal disease with dependence on hemodialysis and thrombosis of right arm axillo-axillary loop polytetrafluorethylene arteriovenous graft secondary to stenosis at the axillary vein polytetrafluorethylene anastomosis. OPERATION PERFORMED: Fistulogram requiring retrograde and antegrade punctures, AngioJet mechanical thrombolysis, balloon angioplasty and insertion of a 15 cm long, 8 mm diameter Viabahn PTFE endovascular stent. SURGEON: Azalia Nielsen MD. ANESTHESIA: TIVA per EDYTA and Dr. Nguyễn and local 1% lidocaine. REFERRING PHYSICIAN: Hu Albert MD. PREOPERATIVE NOTE: Ms. Gustafson is a 41-year-old unfortunate white female, assisted patient, who has had a stroke secondary to carotid artery disease and surgical complications. She is status post implantation of a PTFE loop graft in the right arm axillary-axillary back in January of this year. It has acutely thrombosed and she needs dialysis and is brought here now to the operating room for a fistulogram thrombectomy procedure and possible HemoSplit catheter insertion. DESCRIPTION OF PROCEDURE: Under local anesthesia with 1% lidocaine and also TIVA and monitoring per EDYTA and Dr. Nguyễn, the patient was placed in supine position with the right arm prepped and draped in a sterile manner. The loop PTFE graft was accessed with retrograde and antegrade micropuncture technique and a 6-Beninese introducer sheath was directed to the arterial anastomosis and initially a 6-Beninese sheath was inserted directed towards the venous anastomosis. This was later exchanged for an 8-Beninese introducer. Over a guidewire, I lysed the thrombus within the graft with an AngioJet and then over a guidewire inserted an angled glide catheter into the subclavian artery and performed angiography. This revealed occlusion at the arterial anastomosis, but no evidence of embolization or arterial obstruction, otherwise. The clot was then removed from the arterial anastomosis with a 4-Beninese Domenic embolectomy catheter. An 8-mm diameter angioplasty balloon was then passed through the venous limb and crossed the venous anastomosis, which was kind of tight and a little difficult to pass and then inflated serially beginning in the proximal axillary vein. Approximately 95% stenosis was found at the venous anastomosis. Clot in the venous limb and body of the graft also was macerated with repeated inflations of the balloon. Contrast injection subsequently demonstrated a severe recoil and generally small caliber of the axillary and subclavian veins. The venous anastomosis and axillary vein were subsequently stented with a 15 cm long, 8 mm diameter Viabahn stent and completion angiography revealed satisfactory result and good flow was restored in the fistula. The patient was given 5000 units of heparin initially in the OR and repeatedly during the OPERATIVE REPORT [id number] SAUL GUSTAFSON procedure, the introducer sheath and the graft were flushed with heparinized saline. The graft was functioning well. The 8-Beninese and 6-Beninese sheaths were removed. Hemostasis obtained with 2 razjmg-tm-yqtcm sutures of 4-0 Prolene and some gentle prolonged digital pressure and then, sterile dressings of Cavilon skin prep, Tegaderm and Avitene Ultrafoam were applied to the puncture sites. The patient was then awakened and in stable condition returned to the recovery room. The patient will need to have dialysis probably here today before being discharged. The graft is unfortunately rather excessively deep in the subcutaneous tissues, which combined with the residual swelling she has in her arm from the operation limits the length of the graft which can successfully be accessed. If access continues to be a problem, this may in the future require a revisionary operation. But for now, I believe there is an adequate length of graft that she could be dialyzed today and sent home to continue on her routine. Blood loss during the procedure was insignificant and unreplaced and all sponges, instruments, and needles were accounted for. No drain was used and no surgical specimen was submitted for histopathology. The patient's heparin was not reversed. TRANSINT:[id number] Voice Confirmation ID: [id number] DOCUMENT ID: [id number] AZALIA NIELSEN MD CC: HU ALBERT MD [id number] DICTATION DATE: 07/04/171223 LANDING SUPPORT SPECIALIST: 07/04/172210 ADM IN [facility] [address] [place] [address]
[~2017-07-03 15:40] MED LIST changes: +LEVAQUIN250 MG PO; +SODIUM BICARBO650 MG PO
--- NOTE | 2017-07-03 16:10 | NUR ---
7545-RECEIVED DIRECT ADMIT PER HER FACILITY WHEELCHAIR TO ROOM. PAITENT IS NON VERBAL. RESERVE RIGHT ARM. WILL TRY AND ADMIT FROM PAPERWORK. PATIENT HAS A DIAPER ON, REMOVED, SKIN TO COCCYX IS CLEAN, NO BREAKDOWN SEEN. CLAMPED PEP TUBE SEEN. RIGHT UPPER QUAD TUBE SEEN DRAINING TO BILIARY BAG WITH PUS COLORED DRAINAGE TO BAG. RIGHT SIDED WEAKNESS WITH HAND MANAGER MECHANICAL AND LIFTING OF RIGHT LEG.
[2017-07-03 16:24] VITALS: BP 154/70; BMI 24.7
--- NOTE | 2017-07-03 16:51 | NUR ---
I HAVE CALLED [facility] AGAIN FOR THE FAXED COPY OF MEDICATIONS THAT WERE GIVEN TODAY.
[2017-07-03] MEDS ORDERED: FLAGYL500 MG PO (16:58)
[2017-07-03] MEDS ORDERED: VITAMIN B650 MG PO (17:02)
[2017-07-03 17:20] LABS: BASOPHILS 0.7 % (0-2); EOSINOPHILS 2.3 % (0-7); HEMATOCRIT 31.4 % (36.0-48.0); HEMOGLOBIN 9.5 g/dL (12-16); IMMATURE GRANULOCYTES 0.1 % (0-5); LYMPHOCYTES 17.6 % (15-50); MCH 30.5 pg (26.0-34.0); MCHC 30.3 g/dL (31.0-37.0); MEAN PLATELET VOLUME 10.2 fL (7.4-10.4); MONOCYTES 7.3 % (2-11); PLATELET COUNT 529 10x3/uL (130-400); RBC 3.11 10x6/uL (4.00-5.40); RDW 20.7 % (11.5-14.5); WBC 9.9 10x3/uL (4.8-10.8)
--- NOTE | 2017-07-03 17:44 | NUR ---
STILL NPO AT THIS TIME. AWAITING DR NIELSEN TO SEE DULCE MARIA FOR ORDERS FOR TOMORROW'S SURGERY. FREDDY BANDA, BUTCHER HELPER TO ATTEMPT IV, UNSUCCESSFUL. PER ANESTHSIA THAT CAME TO SEE PATIENT, "IF UNABLE TO GET IV STARTED TONIGHT, WE CAN GET ONE IN SURGERY". WILL CPOC.
--- NOTE | 2017-07-03 17:46 | NUR ---
BOX ALARM HAD BEEN PLACED ON PATIENT ALONG WITH NON SKID SOCKS AND YELLOW ARM BAND.
[2017-07-03 18:05] LABS: HCG SERUM NEGATIVE (NEGATIVE)
[2017-07-03 18:08] LABS: ANION GAP 11.9 mmol/L (8-16); CALCIUM 9.2 mg/dL (8.5-10.1); CARBON DIOXIDE 27.3 mmol/L (21.0-32.0); CREATININE - SERUM 6.2 mg/dL (0.6-1.3); PHOSPHOROUS 3.8 mg/dL (2.5-4.9); POTASSIUM - SERUM 5.2 mmol/L (3.5-5.1)
--- NOTE | 2017-07-03 19:10 | NUR ---
BEDSIDE REPORT COMPLETE FROM KEYVN XIAO. PT IS RESTING IN BED. PT DENIES ANY NEEDS AT THIS TIME. STILL NEED IV ACCESS. NO S/S OF DISTRESS. BED LOW AND CALL LIGHT WITHIN REACH. WILL CPOC
[2017-07-03 20:00] VITALS: BP 161/70
[2017-07-03 21:33] LABS: INR 0.95 (0.85-1.17); PROTIME 12.6 SECONDS (11.6-15.0)
[2017-07-04] VITALS: BP 179/81
[2017-07-04 04:00] VITALS: BP 164/75
--- NOTE | 2017-07-04 05:57 | NUR ---
PT RESTING IN BED. THE ANESTHESIA CONSENT, BLOOD TRANSFUSION CONSENT, AND PROCEDURE CONSENT ARE ALL SIGNED DATED AND WITNESSED. PT DENIES ANY PAIN. DENIES ANY NEEDS, NO S/S OF DISTRESS WILL CPOC
[2017-07-04 07:06] LABS: EOSINOPHILS 2.2 % (0-7); HEMATOCRIT 33.3 % (36.0-48.0); HEMOGLOBIN 10.2 g/dL (12-16); IMMATURE GRANULOCYTES 0.1 % (0-5); LYMPHOCYTES 20.2 % (15-50); MCH 30.8 pg (26.0-34.0); MCHC 30.6 g/dL (31.0-37.0); MCV 100.6 fL (80.0-100.0); MEAN PLATELET VOLUME 10.2 fL (7.4-10.4); MONOCYTES 4.5 % (2-11); PLATELET COUNT 523 10x3/uL (130-400); RBC 3.31 10x6/uL (4.00-5.40); RDW 20.7 % (11.5-14.5)
[2017-07-04 07:15] LABS: ANION GAP 13.4 mmol/L (8-16); CALCIUM 9.1 mg/dL (8.5-10.1); CARBON DIOXIDE 26.5 mmol/L (21.0-32.0); CREATININE - SERUM 6.4 mg/dL (0.6-1.3); INR 0.97 (0.85-1.17); POTASSIUM - SERUM 4.9 mmol/L (3.5-5.1); PROTIME 12.8 SECONDS (11.6-15.0)
--- NOTE | 2017-07-04 07:15 | NUR ---
PATIENT OFF UNIT FOR PROCEDURE AT SHIFT REPORT.
[2017-07-04 08:00] VITALS: BP 189/75
--- NOTE | 2017-07-04 10:30 | NUR ---
NO IV AXCESS. ATTEMPT BY ANESTHESIA. CENTRAL LINE PLACED IN HOLDING AREA. BY NGHIA JONES MARKETING GRAPHICS SPECIALIST.
--- NOTE | 2017-07-04 11:18 | NUR ---
RECEIVED REPORT FROM RECOVERY NURSE. PATIENT TO UNIT SOON. LEFT IJ PLACED IN SURGERY.
[2017-07-04 11:30] VITALS: BP 192/72
--- NOTE | 2017-07-04 11:35 | NUR ---
RECEIVED PATIENT BACK TO UNIT AT THIS TIME. DROWSEY BUT EASILY AROUSED. DIALYSIS AT BEDSIDE AT THIS TIME FOR DIALYSIS. CALL LIGHT WITHIN REACH.NO DISTRESS.
--- NOTE | 2017-07-04 12:12 | NUR ---
MEDICATED FOR PAIN. DIALYSIS NURSE STUCK PATIENT TWICE BEFORE BEING ABLE TO ACCESS FISTULA. NO DISTRESS NOTED. CALL LIGHT WITHIN REACH.
--- NOTE | 2017-07-04 15:16 | NUR ---
TUBE FEEDING INITIATED AT THIS TIME. NO RESIDUAL. COMPLETE LINEN CHANGE AND INCONTINENT CARE PROVIDED. NO DISTRESS. SPOKE WITH ROBERT REYES AND RECIEVED NEW ORDER FOR NORCO 5/325 EVERY 4 HOURS PRN PAIN.
--- NOTE | 2017-07-04 15:27 | NUR ---
SCDS ON TO BILATERAL LOWER EXT AT THIS TIME.
[2017-07-04 15:33] VITALS: Ht 157.5 cm; Wt 61.2 kg
[2017-07-04 16:00] VITALS: BP 134/64
--- NOTE | 2017-07-04 17:00 | NUR ---
RESIDUAL CHECKED FOR GTUBE, LESS THAN 5CC. TOLERATING FEEDING WELL. NO DISTRESS.
--- NOTE | 2017-07-04 19:26 | NUR ---
REPORT GIVEN TO ONCOMING NURSE. NO DISTRESS.
--- NOTE | 2017-07-04 19:35 | NUR ---
REPORT RECIEVED. PT RESTING QUIETLY, DENIES NEEDS AT THIS TIME. RR EVEN AND UNLABORED, INTRODUCED SELF AND PLACED NAME ON WHITE BOARD. BED IN LOWEST POSTION, CALL NAJERA IN REACH, WILL CTM.
--- NOTE | 2017-07-04 21:46 | NUR ---
RESIDUAL CHECKED PRIOR TO GIVING EVENING MEDS. NO RESIDUAL ASPIRATED. WILL CONTINUE TUBE FEEDING AT 40 ML PER HR.
[2017-07-05 04:00] VITALS: BP 124/52
--- NOTE | 2017-07-05 04:29 | NUR ---
FEEDING PUMP TUBING CHANGED, TIMED AND DATED. NEPRO CONTINUED AT 40ML/HR PER ORDERS. RESIDUAL CHECKED PRIOR TO RESTARTING FEEDINGS, SHOWED LESS THAN 10 MLS OF RESIDUAL. RR EVEN AND UNLABORED, PT RESTING QUIETLY.
--- NOTE | 2017-07-05 06:17 | NUR ---
PT RESTING QUIETLY, BED BATH GIVEN, BED PAD AND GOWN CHANGED. SKIN IS INTACT WITH NO SIGNS OF BREAKDOWN. WILL GIVE REPORT ON PT CONDITION FOR THE DAY.
[2017-07-05 06:44] LABS: BASOPHILS 1.1 % (0-2); EOSINOPHILS 2.4 % (0-7); IMMATURE GRANULOCYTES 0.2 % (0-5); LYMPHOCYTES 24.1 % (15-50); MCH 30.6 pg (26.0-34.0); MCHC 30.6 g/dL (31.0-37.0); MEAN PLATELET VOLUME 9.9 fL (7.4-10.4); MONOCYTES 9.7 % (2-11); NEUTROPHILS 62.5 % (40-80); RBC 2.65 10x6/uL (4.00-5.40); RDW 21.1 % (11.5-14.5); WBC 6.4 10x3/uL (4.8-10.8)
[2017-07-05 06:51] LABS: HEMATOCRIT 26.5 % (36.0-48.0); HEMOGLOBIN 8.1 g/dL (12-16); PLATELET COUNT 353 10x3/uL (130-400)
[2017-07-05 07:01] LABS: ANION GAP 9.8 mmol/L (8-16); CALCIUM 7.7 mg/dL (8.5-10.1); CARBON DIOXIDE 30.4 mmol/L (21.0-32.0); PHOSPHOROUS 3.7 mg/dL (2.5-4.9); POTASSIUM - SERUM 4.2 mmol/L (3.5-5.1)
[2017-07-05 07:06] LABS: CREATININE - SERUM 4.2 mg/dL (0.6-1.3)
[2017-07-05 08:00] VITALS: BP 155/56
--- NOTE | 2017-07-05 08:08 | NUR ---
AM ROUNDS - PT APPEARS TO BE SLEEPING WITH EQUAL AND NON LABORED BREATHING. J-TUBE RUNNING NEPRO AT 40CC/HR WITH A 50CC/FLUSH EVERY 4 HOURS. BOX ALARM ON AND WORKING PROPERLY. SIDE RAILS UP X2. BED AT LOWEST POSITION. PT IS A RESERVE RIGHT ARM. IV TO LEFT SIDE OF NECK, SL. WILL CONTINUE TO MONITOR
[2017-07-05 12:00] VITALS: BP 152/59
--- NOTE | 2017-07-05 15:31 | NUR ---
PT IS IN BED AND APPEARS TO BE SLEEPING WITH EQUAL AND NON LABORED BREATHING. WILL CONTINUE TO MONITOR
--- NOTE | 2017-07-05 16:13 | NUR ---
Patient Name: SAUL GUSTAFSON Admission Status: Urgent Accout number: [id number] Admission Date: 07-03-2017 : 1975 Admission Diagnosis:OTH COMPLICATION OF VASCULAR PROSTH ED/HORTENCIA, INIT Attending: EMMY Current LOS: 2 Anticipated DC Date: 07-05-2017 Planned Disposition: Nursing Facility [facility] Primary Insurance: MEDICAID [place] PLANNED EXTERNAL PROVIDER: [facility] Discharge Planning Comments: * Is the patient Alert and Oriented? Yes 0 * How many steps to enter\exit or inside your home? NONE 0 * PCP DR. GARCIA 0 * Pharmacy [facility] IN [place] 0 * Preadmission Environment Customer Service Voice [facility] 0 * Facility Name [facility] 0 * ADLs Partial Dependent 0 * Partial ADLs (Assistance needed) Medication Management Transfers 0 * Equipment Other 0 * Other Equipment ALL MEDICAL EQUIPMENT PROVIDED BY FACILITY 0 * List name and contact numbers for known caregivers / representatives who currently or will assist patient after discharge: PREM GUSTAFSON, BROTHER, 0 * Community resources currently utilized Other 0 * Please name any agencies selected above. OUTPATIENT DIALYSIS, [facility], , 1030AM, FACILITY TRANSPORT 0 * Additional services required to return to the preadmission environment? No 0 * Can the patient safely return to the preadmission environment? Yes 0 * Has this patient been hospitalized within the prior 30 days at any hospital? No [address] ARANDA WHO INFORMED CM THAT PT IS READY TO DISCHARGE TODAY. CM MET WITH PT IN ROOM TO DISCUSS DISCHARGE PLANNING AND NEEDS. PT REPORTS LIVING AT [facility] AND WILL RETURN THERE. PT REPORTS HER MANAGER OF ADMINISTRATION IS HER BROTHER PREM. PT ATTENDS DIALYSIS ON SCHEDULE AT [facility], THE PRISON TAKES HER TO AND FROM DIALYSIS. PT DENIES NEEDS AND IS IN AGREEMENT WITH DISCHARGE HOME TODAY. CM CALLED PREM WARNERALISSA AT [phone], [facility]. CM CALLED [facility], [phone], SPOKE TO ELLIOT, WATER PLUMBER, NOTIFIED OF PT'S DISCHARGE TODAY FOR GROUP HOME CARE, [facility] TO ACCEPT PT BACK AND WILL SEE IF THEY HAVE TRANSPORT AVAILABLE TODAY AND CALL CM BACK SHORTLY. CM FAXED HOSPITAL STAY INFORMATION TO [facility] AT [phone]. BEDSIDE NURSE NOTIFIED. FOR DISCHARGE, NURSE REPORT TO BE CALLED TO [facility] AT [phone], FAX DISCHARGE INFORMATION TO [facility] AT [phone]. [facility] TO ARRANGE VAN TRANSPORT. Auto Clutch Rebuilder: Jared Kirk
--- NOTE | 2017-07-05 17:23 | NUR ---
VERBAL D/C INSTRUCTIONS CALLED INTO ROZ MISHRA, AT [facility]. WRITTEN D/C INTRUCTIONS WILL BE SENT WITH PT. [facility] WILL BE PICKING UP PT. AWAITING TRANSPORTATION. WILL CONTINUE TO MONITOR
--- NOTE | 2017-07-05 17:35 | NUR ---
Dialysis Coordinator: [facility] @ 10:30am. ERIC HORVATH.
--- NOTE | 2017-07-05 18:14 | NUR ---
J TUBE FEEDING D/C FOR PT TO TRANSPORT TO [facility]. CALLED REPORT TO ROZ MISHRA, AT [place]. GAVE BRASS MOLDER HELPER WRITTEN D/C INTRUCTIONS. PT LEFT FLOOR VIA WHEELCHAIR WITH [facility] BRASS MOLDER HELPER. WILL D/C
--- NOTE | 2017-07-05 18:19 | NUR ---
TUBE FEEDING [facility] 0800 - 15CC 1200 - 9CC 1600 - 8CC
== END 2017-07-05 18:20 | DRG 252 ==
LOC: D.M2 15:40
PROVIDERS: Surgery; ADMIT Internal Medicine Nephrology
PROC: 5A1D00Z (ICD-10-PCS; 2017-07-04)
PROC: B51W1ZZ Fluoroscopy of Dialysis Shunt/Fistula using Low Osmolar Contrast (ICD-10-PCS; principal; 2017-07-04 07:30)
PROC: 05C73ZZ Extirpation of Matter from Right Axillary Vein, Percutaneous Approach (ICD-10-PCS; 2017-07-04 07:30)
PROC: 05773DZ Dilation of Right Axillary Vein with Intraluminal Device, Percutaneous Approach (ICD-10-PCS; 2017-07-04 07:30)
DX: T82.590A Other mechanical complication of surgically created arteriovenous fistula, initial encounter (principal); N18.6 End stage renal disease; I12.0 Hypertensive chronic kidney disease with stage 5 chronic kidney disease or end stage renal disease; N25.81 Secondary hyperparathyroidism of renal origin; Y83.8 Other surgical procedures as the cause of abnormal reaction of the patient, or of later complication, without mention of misadventure at the time of the procedure; Z99.2 Dependence on renal dialysis; I69.920 Aphasia following unspecified cerebrovascular disease; G62.9 Polyneuropathy, unspecified; K21.9 Gastro-esophageal reflux disease without esophagitis; F32.9 Major depressive disorder, single episode, unspecified; D63.1 Anemia in chronic kidney disease; Z93.1 Gastrostomy status

== ENCOUNTER 2017-08-08 17:20 | Emergency (ER) | payer MEDICAID ==
[2017-07-04 15:33] VITALS: BMI 24.7
[~2017-08-08 17:20] MED LIST changes: +FLAGYL500 MG PO
[2017-08-08 19:11] LABS: BASOPHILS 0.2 % (0-2); EOSINOPHILS 0.1 % (0-7); HEMOGLOBIN 10.5 g/dL (12-16); IMMATURE GRANULOCYTES 0.1 % (0-5); LYMPHOCYTES 5.9 % (15-50); MCH 33.3 pg (26.0-34.0); MCHC 31.8 g/dL (31.0-37.0); MCV 104.8 fL (80.0-100.0); MEAN PLATELET VOLUME 9.6 fL (7.4-10.4); MONOCYTES 4.1 % (2-11); NEUTROPHILS 89.6 % (40-80); RBC 3.15 10x6/uL (4.00-5.40); WBC 9.9 10x3/uL (4.8-10.8)
[2017-08-08 19:12] LABS: PLATELET COUNT 202 10x3/uL (130-400)
[2017-08-08 19:33] LABS: ALBUMIN 2.8 g/dL (3.4-5.0); ANION GAP 16.8 mmol/L (8-16); BILIRUBIN - TOTAL 0.65 mg/dL (0.2-1.3); CARBON DIOXIDE 27.7 mmol/L (21.0-32.0); CREATININE - SERUM 6.6 mg/dL (0.6-1.3); POTASSIUM - SERUM 4.5 mmol/L (3.5-5.1); PROTEIN - SERUM 8.5 g/dL (6.4-8.2)
[2017-08-08 21:36] LABS: APPEARANCE HAZY (CLEAR); BILIRUBIN NEGATIVE (NEGATIVE); COLOR YELLOW (YELLOW); GLUCOSE NEGATIVE (NEGATIVE); KETONE NEGATIVE (NEGATIVE); LEUKOCYTE ESTERASE 2+ (NEGATIVE); NITRITE NEGATIVE (NEGATIVE); PROTEIN 1+ mg/dL (NEGATIVE); UROBILINOGEN NORMAL (NORMAL)
[2017-08-08 21:37] LABS: BACTERIA MODERATE /hpf (NONE SEEN); MUCUS <1+ /lpf (NONE SEEN); RED CELLS - URINE 0-5 /hpf (0-5); YEAST >1+ WITH HYPHAE /hpf (NONE SEEN)
== END 2017-08-09 03:05 | disposition home or self-care (01) ==
LOC: D.ER 17:20
PROVIDERS: Emergency Medicine
DX: R11.2 Nausea with vomiting, unspecified (principal); R50.9 Fever, unspecified; I12.9 Hypertensive chronic kidney disease with stage 1 through stage 4 chronic kidney disease, or unspecified chronic kidney disease; N18.9 Chronic kidney disease, unspecified; E11.9 Type 2 diabetes mellitus without complications; Z86.73 Personal history of transient ischemic attack (TIA), and cerebral infarction without residual deficits; Z86.2 Personal history of diseases of the blood and blood-forming organs and certain disorders involving the immune mechanism; N39.0 Urinary tract infection, site not specified

== ENCOUNTER 2017-09-01 07:28 | Day surgery (SDC) | payer MEDICAID ==
[~2017-09-01 07:28] MED LIST changes: -LIPITOR10 MG PO; +LIPITOR10 MG PT; -PACERONE100 MG PO; +PACERONE100 MG PT; -VITAMIN B COMPL1 TAB PO; +VITAMIN B COMPL1 TAB PT; -VITAMIN B-121000 MCG PO; +VITAMIN B-121000 MCG PT
[2017-09-01 08:42] LABS: BASOPHILS 0.5 % (0-2); EOSINOPHILS 2.4 % (0-7); HEMATOCRIT 36.6 % (36.0-48.0); HEMOGLOBIN 11.7 g/dL (12-16); IMMATURE GRANULOCYTES 0.1 % (0-5); LYMPHOCYTES 27.1 % (15-50); MCH 33.3 pg (26.0-34.0); MCV 104.3 fL (80.0-100.0); MEAN PLATELET VOLUME 9.8 fL (7.4-10.4); MONOCYTES 4.2 % (2-11); NEUTROPHILS 65.7 % (40-80); RBC 3.51 10x6/uL (4.00-5.40); RDW 17.5 % (11.5-14.5); WBC 7.8 10x3/uL (4.8-10.8)
[2017-09-01 08:46] LABS: PLATELET COUNT 313 10x3/uL (130-400)
[2017-09-01] MEDS ORDERED: REGLAN SOL10 MG/10 M PT (08:46)
[2017-09-01] MEDS ORDERED: CHOLESTYRAMIN4 G/PK1 PT (08:47)
[2017-09-01] MEDS ORDERED: PHOSLO667 MG PT (08:48)
[2017-09-01] MEDS ORDERED: ONDANSETRON4 MG/2 M3 PEG (08:50)
[2017-09-01] MEDS ORDERED: REMERON30 MG PT (08:51)
[2017-09-01 08:53] LABS: APTT 26.4 SECONDS (22.8-39.4); INR 0.97 (0.85-1.17); PROTIME 12.7 SECONDS (11.6-15.0)
[2017-09-01 08:56] LABS: HCG SERUM NEGATIVE (NEGATIVE)
[2017-09-01 09:01] LABS: ANION GAP 20.2 mmol/L (8-16); CALCIUM 10.5 mg/dL (8.5-10.1); CARBON DIOXIDE 23.9 mmol/L (21.0-32.0); CREATININE - SERUM 6.6 mg/dL (0.6-1.3); POTASSIUM - SERUM 4.1 mmol/L (3.5-5.1)
[2017-09-01 09:22] VITALS: BMI 28.0
--- NOTE | 2017-09-01 18:37 | NUR ---
1700 REPORT FROM CARYL RUELAS R.N. SHE CALLED [facility] AND GAVE REPORT AND RIDE WILL BE HERE IN 45 MINUTES.
--- NOTE | 2017-09-01 18:46 | NUR ---
1700 TALKED WITH Sheldon alejon AND OKAY FOR PATIENT TO BE ON ELOQUIS 5 MG 2 X DAILY AND WENT OVER ALL ORDERS WRITTEN ABOUT NO NEED FOR APPOINTMENT AND ENVIRONMENTAL ISSUES INSTRUCTOR DIALYSIS DO CALL [facility] NEXT WEEK FOR A REPORT ON HOW SHE IS DOING AND HOW HEMISPLIT IS DOING. INSTRUCTIONS ABOUT RESTING FISTULA FOR A WEEK OR TWO THEN RETURN FOR AVGRAFT. INSTRUCTED ON CARE OF FISTULA AND OKAYWITH ALL ORDERS.
--- NOTE | 2017-09-01 18:59 | NUR ---
1814 CALLED JAIL STILL WAITING FOR RIDE.
--- NOTE | 2017-09-01 19:00 | NUR ---
1830 REPORT TO ETL SOFTWARE ENGINEER JACLYN MEZA LPN AT [facility] AND ALL ORDERS OKAYED BY NEPHROLOGY. READ ALL ORDERS THAT NEED TO BE DONE. SENT 4 PAGES WITH DISCHARGE PACKET. PATIENT UNABLE TO SIGN DISCHARGE. PATIENT DRESSED AND READY TO GO HOME. RT ARM REMAINS SWOLEN AND BRUISING AND RT BREAST ALSO BRUISING. RT GROIN DRESSING C/D/I AT [facility] SITE.
--- NOTE | 2017-09-01 19:06 | NUR ---
1855 ASSISTED TO W/C AND ACCOMPANIED BY Molina BLANCO TO NIECY AGUAYO.
--- NOTE | 2017-09-11 16:39 | PN ---
PATIENT:SAUL GUSTAFSON MEDICAL RECORD: [id number] LOCATION:D.OPS ADMISSION DATE: 09/01/17 PROGRESS NOTE Update/Course 09/01/17 PRIMARY SURGEON: NEGRO INDUSTRIAL ELECTRICAL TECHNICIAN SURGEON / PHYSICIAN: JOSE GAGNON ANESTHESIOLOGIST: EDYTA FINDINGS: LACK OF VENOUS ACCESS, THROMBOSED [id number] ARM BRACHIAL-AX PTFE LOOP AVG WITH LONG STENT IN AX AND SCV's AND A MILD TO MODERATE PROXIMAL STENT END STENOSIS. SMALL AX AND BRACHIAL ARTERIES WITH ABERRANT PROXIMAL ORIGIN OF RADIAL ARTERY, NO AVAILABLE VEINS IN NECK FOR TDC PROCEDURE: iNSERTION OF RIGHT FEMORAL CVL WITH US AND FLUORO GUIDE FOR INDUCTION OF ANESTHESIA AND THEN INSERTION OF RIGHT CFV 35CM HEMOSPLIT. THEN US GUIDED ACCESS X 2 OF AVG IN RIGHT ARM AND ANGIOJET MT AND [id number] BALLOON ANGIOPLASTY OF END STENT AND MID GRAFT STENOSIS AND MACERATION OF REMAINING CLOT. 5000 UNITS OF HEPARIN GIVEN AND NOT REVERSED. FLOW RESTORED. SPECIMENS: NONE OP DIAGNOSIS: LACK OF VENOUS ACCESS AND THROMBOSIS OF RIGHT ARM AVG OPERATIVE REPORT DICTATED IMMEDIATELY? Y #[id number] MARITA GAGNON ESTIMATED BLOOD LOSS: 5CC Problem List Problem List 1. ESRD (end stage renal disease) (Chronic) 2. HTN (hypertension) (Chronic) 3. AV fistula thrombosis 4. Dependence on renal dialysis 5. Poor venous access Plan - DC TO AR. KEEP ANTICOAGULATED ON ELIQUIS. REST AVG AND TREAT OVERLYING SKIN ULCERATION. PLAN TO TRY TO RETURN HER TO OR IN 2-3 WEEKS FOR A REVISION OF AVG WITH A ACUSEAL GRAFT PLACED CLOSER TO SKIN TO INCREASE EASE OF ACCESS AND HELP WITH PROGRESS NOTE [id number] SAUL GUSTAFSON ANTICOAGULATION. at 1618 SECTION 2 ADDENDUM 1: 09/01/17 180 AZALIA NIELSEN THIS NOTE IS ON THE WRONG PATIENT. THE CORRECT PT IS SAUL GUSTAFSON ACCNT # [id number] at 1803 AZALIA NIELSEN MD at 1639 CC: [id number] DICTATION DATE: 09/01/17 1618 AUTOMATION CLERK: TC 09/08/17 1140 DEP SDC 09/01/17 [facility] [address] [place] [address]
--- NOTE | 2017-09-15 08:26 | OP ---
PATIENT NAME: SAUL GUSTAFSON MEDICAL RECORD: [id number] :77 LOCATION:[facility] ADMISSION DATE: SURGEON: AZALIA NIELSEN MD DATE OF OPERATION: 09/01/2017 REFERRED BY: Hu Albert MD PREOPERATIVE DIAGNOSIS: End-stage renal disease, independence, on hemodialysis with thrombosed right arm brachial axillary loop PTFE arteriovenous graft. ADDITIONAL DIAGNOSIS: Poor venous access. OPERATION PERFORMED: Insertion of a central venous line via the right common femoral vein utilizing ultrasound and fluoroscopic guidance. This done for induction of anesthesia followed by insertion of a HemoSplit, 35 cm long tunneled dialysis catheter also via the right common femoral vein for dialysis access. This also done with fluoroscopic guidance and then also a fistulogram with AngioJet mechanical thrombolysis and balloon angioplasty of mid graft stenosis and stenosis at the proximal end of a venous outflow stent in the subclavian vein, and also selective axillary arteriogram done pre- and post-thrombectomy. SURGEON: Azalia Nielsen MD ANESTHESIA: General endotracheal per HAND TOUCH UP PAINTER. PREOPERATIVE NOTE: Ms. Gustafson is an unfortunate 42-year-old white female who suffered brain damage, I believe during resuscitation for cardiac arrest. She is in chronic renal failure and is dialysis dependent. She has been dialyzing with the problematic right upper extremity loop PTFE graft. It has thrombosed and she is brought to the hospital for declot procedure. The patient has very poor veins and anesthesia was unable to start an IV. She did have an IV in her hand briefly, but it infiltrated. Ultrasound examination of the neck failed to reveal any suitable veins for access. Using full barrier precautions in the standard aseptic technique, I used ultrasound to guide and micropuncture needle and guidewire into the right common femoral vein, and through a small incision there then I inserted an Arrow guard triple lumen IV catheter as a central line. The sr. payroll manager then utilized this IV access for induction of anesthesia. I subsequently inserted a different guidewire and passed introducers and inserted a 35 cm long HemoSplit tunneled dialysis catheter, brought out through a subcutaneous tunnel and separate skin entry stab incision. The previous central venous line was removed. The new catheter was aspirated, both lumens returned blood easily. They were then flushed with saline and then heparin locked. Fluoroscopic study showed the catheter in good position with its tips at the level of the distal inferior vena cava. The catheter was sutured to the skin near the entry site with 2-0 Prolene and the groin incision closed with interrupted inverted 3-0 Vicryl and Dermabond glue. Appropriate central venous line dressings were applied there. The patient was completely reprepped and redraped. The right arm was approached and the loop graft in the upper arm accessed twice with ultrasound guidance and OPERATIVE REPORT [id number] SAUL GUSTAFSON micropuncture technique, two 6-Barbadian introducers were placed. A guidewire was advanced through the venous anastomosis and a glide catheter was passed proximally. The subclavian vein was patent. There was a stenosis at the proximal end of the long stent, which extends from the axillary vein and anastomosis really up into the subclavian vein. I then used an AngioJet to lyse and remove thrombus from the venous limb of the graft and the patient was given 5000 units of heparin. I used an 8-mm diameter x 80-mm long angioplasty balloon to dilate a 70% stenosis at the proximal end of her stent and macerate any remaining thrombus in the venous limb. Repeat contrast injection revealed no obstruction to flow or significant remaining thrombus. I then used a guidewire and glide catheter again, passed through the arterial anastomosis to perform a selective axillary arteriogram. 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 The anastomosis was cleared of thrombus over the wire 5-Barbadian Domenic embolectomy catheter and the AngioJet was used to lyse and remove remaining thrombus in the body and arterial limb of the graft. The 8-mm diameter balloon was then used to macerate thrombus and dilate mid graft stenoses, and following this flow was restored in the graft. Repeat contrast injection with venous outflow obstruction with a Domenic balloon demonstrated smooth wall of the graft and widely opened arterial anastomosis and another selective arteriogram was performed to the axillary artery and there was no evidence of any embolism. The patient's heparin was not reversed. The hardware and two introducers were removed. Hemostasis was obtained at the entry sites with [id number] 4-0 Prolene sutures and direct pressure. These sites were both then dressed with Avitene Ultrafoam, Cavilon and Tegaderm. There was an area of skin ulceration, which overlies the most palpable lateral aspect of the graft, which was a result of repeated needle punctures in basically the same area. This did not appear to be the case of impending graft infection, exposure, perforation or hemorrhage. The area was cleaned with saline and then dressed with Betadine ointment, and further sterile dressing applied to that. It was my impression that the patient's graft was unfortunately too deep and difficult to palpate, and therefore probably difficult to access. This may be contributing to the repeated graft thrombosis. I believe that she should be anticoagulated and we will start her on Eliquis and we will plan at this point to "rest" the AV graft. The dialysis unit can use the HemoSplit catheter for the next few weeks. I would like to be sure that the graft wound dressings are changed several times a week. The stitches at the entry sites from today's procedure should be removed next week and the area of ulceration should be cleaned with soap and water, and dressed with antibiotic ointment. I will plan to most likely bring her back to the operating room in 2-3 weeks. At that time, of course, she will need to be off of her anticoagulant, but I will plan on interposing an Acuseal graft segment or jump graft, which I will endeavor to place in a much more shallow position just beneath the skin to make it more easily palpable and facilitate graft access. At that time, also I will plan to repeat a fistulogram, and if there was evidence of recurring stenosis in the subclavian vein or stent vein confluence, then a drug-coated balloon angioplasty would be appropriate as well at that time. The patient was awakened from her anesthetic and returned to the recovery room. At this point, I plan for her to go home [facility] today and continue her usual dialysis schedule by using her HemoSplit for the next few weeks as I have just described above. She will continue on her same medications, though I am adding Eliquis 5 mg b.i.d. I will ask the nephrology and the nephrology STUDIO DESIGNER's to check with the dialysis unit as to the status of her access how her OPERATIVE REPORT [id number] SAUL GUSTAFSON HemoSplit was functioning, etc. It would be very difficult for this patient to come back to see me in the office and I am hoping that I can just see her back in the outpatient department when she comes back for procedure. Blood loss during the procedure was about 5 cc and was unreplaced. All sponges, instruments and needles were accounted for. No drain was used and no surgical specimen was submitted for histopathology. TRANSINT:[id number] Voice Confirmation ID: [id number] DOCUMENT ID: [id number] 09/13/2017 Edited preop note, [email or web address]. AZALIA NIELSEN MD at 0826 CC: HU ALBERT MD [id number] DICTATION DATE: 09/01/17 1617 HIV NURSE: 09/01/17 1840 [facility] [place] 09/01/17 [facility] [address] [place] [address]
== END 2017-09-01 18:55 | disposition home or self-care (01) ==
LOC: D.OPS 07:28
PROVIDERS: Anesthesiology
DX: I12.0 Hypertensive chronic kidney disease with stage 5 chronic kidney disease or end stage renal disease (principal); E11.22 Type 2 diabetes mellitus with diabetic chronic kidney disease; N18.6 End stage renal disease; Z99.2 Dependence on renal dialysis; Z87.891 Personal history of nicotine dependence; R53.1 Weakness; G62.9 Polyneuropathy, unspecified; Z01.812 Encounter for preprocedural laboratory examination

== ENCOUNTER 2017-11-03 08:22 | Day surgery (SDC) | payer MEDICAID ==
[~2017-11-03] VITALS: Ht 157.5 cm; Wt 76.6 kg
[~2017-11-03 08:22] MED LIST changes: +CHOLESTYRAMIN4 G/PK1 PT; +ONDANSETRON4 MG/2 M3 PEG; +PHOSLO667 MG PT; +REGLAN SOL10 MG/10 M PT; +REMERON30 MG PT
[2017-11-03] MEDS ORDERED: ELIQUIS5 MG PT (09:43)
[2017-11-03 09:53] VITALS: BP 105/60; BMI 29.5
[2017-11-03 10:10] VITALS: BP 105/60; BMI 29.5
[2017-11-03 10:11] LABS: BASOPHILS 0.8 % (0-2); EOSINOPHILS 1.7 % (0-7); HEMATOCRIT 37.5 % (36.0-48.0); HEMOGLOBIN 11.9 g/dL (12-16); IMMATURE GRANULOCYTES 0.2 % (0-5); MCH 34.9 pg (26.0-34.0); MCHC 31.7 g/dL (31.0-37.0); MEAN PLATELET VOLUME 10.2 fL (7.4-10.4); MONOCYTES 7.7 % (2-11); NEUTROPHILS 66.6 % (40-80); PLATELET COUNT 253 10x3/uL (130-400); RBC 3.41 10x6/uL (4.00-5.40); RDW 16.2 % (11.5-14.5); WBC 6.4 10x3/uL (4.8-10.8)
[2017-11-03 10:20] LABS: ANION GAP 14.8 mmol/L (8-16); CALCIUM 9.3 mg/dL (8.5-10.1); CARBON DIOXIDE 27.8 mmol/L (21.0-32.0); CREATININE - SERUM 3.3 mg/dL (0.6-1.3); INR 0.98 (0.85-1.17); POTASSIUM - SERUM 3.6 mmol/L (3.5-5.1); PROTIME 12.6 SECONDS (11.6-15.0)
[2017-11-03 10:21] LABS: APTT 31.3 SECONDS (22.8-39.4)
[2017-11-03 10:59] LABS: HCG SERUM NEGATIVE (NEGATIVE)
--- NOTE | 2017-11-03 17:14 | NUR ---
PT ARRIVED VIA BED FROM OR STAFF. PT IS AWAKE AND ALERT. ON ROOM AIR. NO MONITOR. DRESSING THAT IS CLEAN, DRY, AND INTACT SEEN TO RIGHT UPPER ARM. LEFT ARM APPEARS SWOLLEN WITH SCABS SEEN. SCABS SEEN TO PTS HEAD. DANDRUFF SEEN IN HAIR. PT IS SLOW TO RESPOND (PER REPORT HX OF CVA). RIGHT GROIN HEMOSPLIT SEEN WITH IV TUBING HOOKED TO IT (FROM SURGERY). SOME TYPE OF DRAINAGE BAGED IS HOOKED TO PTS RIGH LEG THAT IS ATTACHED TO RUQ. PEG TUBE SEEN TO LEFT SIDE OF ABDOMEN. WILL ADMIT PT AND CONTINUE TO MONITOR.
[2017-11-03 17:26] VITALS: BP 156/86; Ht 157.5 cm; Wt 76.6 kg
--- NOTE | 2017-11-03 17:49 | NUR ---
PT HAS PEG TUBE TO LEFT SIDE OF ABDOMEN SEEN. PT HAS DRAIN TO RIGHT SIDE OF ABDOMEN WITH DRAINAGE BAG (NOTHING IN BAG). THIS NURSE DID NOT GET REPORT FROM OR RECOVERY OR ANY STAFF RELATED TO PTS CARE REGARDING THIS DRAIN. WILL ATTEMPT TO REACH CORRECTION (NIECY AGUAYO) REGARDING THIS. PT INFORMS ME THAT SHE CAN EAT REGULAR FOOD AND HAD TRAY FOR DINNER.
--- NOTE | 2017-11-03 17:58 | NUR ---
CALLED NIECY AGUAYO AND SPOKE WITH NURSE THAT USUALLY TAKES CARE OF PT. NURSE INFORMS ME THAT SHE DOES NOT EXACTLY KNOW WHY PT HAS DRAIN HOOKED UP TO DRAINAGE BAG BUT WILL FIND OUT AND CALL ME BACK.
--- NOTE | 2017-11-03 18:17 | NUR ---
STILL NOT HAVE RECEIVED PHONE CALL FROM NIECY AGUAYO. PT IS POOR HISTORIAN THAT CANNOT TELL ME WHY SHE HAS DRAIN HOOKED UP TO DRAINAGE BAG. WILL AWAIT NICEY AGUAYO TO CALL ME BACK AND CONTINUE TO MONITOR.
--- NOTE | 2017-11-03 18:20 | NUR ---
SHANTANU DARDEN NP FOR RENAL REGARDING DR. TUCKER NURSING MESSAGE TO HAVE NEPHROLOGY SEE PT AND TO SEE ABOUT HOME MEDICATIONS BEING RESTARTED. WILL AWAIT CALLBACK.
--- NOTE | 2017-11-03 18:27 | NUR ---
RECEIVED CALL FROM JACKY DARDEN. NEW ORDERS RECEIVED TO RESTART PTS AMIODARONE AND SHE WILL RESTART PTS HOME MEDICAITONS TOMORROW WHEN PT IS SEEN. REYNALDO RICO STATES TO HOLD OFF ON PTS TUBE FEEDINGS FOR NOW (PT GETS TUBE FEEDINGS AT TIMES IN [facility]). REYNALDO RICO WAS MADE AWARE OF DR. TUCKER NURSING MESSAGE REGARDING DIALYSIS TOMORROW. JACKY DARDEN NP STATES SHE WILL ADDRESS THIS TOMORROW. ALSO ASKED REYNALDO RICO REGARDING PTS DRAIN TO RIGHT SIDE OF ABDOMEN AND REYNALDO RICO WAS NOT AWARE OF THIS. WILL PASS THIS ALONG IN REPORT TO HAND LACER NURSE.
[2017-11-03 19:00] VITALS: BP 129/53
--- NOTE | 2017-11-03 19:15 | NUR ---
ROUNDING NOTE: BED SIDE SHIFT REPORT COMPLETED WITH JILLIAN RN. PT LAYING IN BED, RESTING WITH EYES CLOSED, AROUSED TO VOICE STIMULI, BUT VERY SOMNOLENT SINCE COMING TO THE FLOOR S/P PROCEDURE TO REPAIR CLOTTED RIGHT ARM AVF. PT HAS LEFT SIDED PEG TUBE. RIGHT SIDED BILI TUBE W/ DRAINAGE BAG. RIGHT GROIN HEMOSPLIT. PT IS RIGHT ARM RESERVE D/T (RIGHT AVF). SHE IS RESIDENT OF [facility] D/T HX OF CVA, SLIGHT RIGHT FOOT DROP, BED RIDDEN. PLANS TO [place] [facility] [place]. WILL CONT TO MONITOR.
--- NOTE | 2017-11-03 19:16 | NUR ---
PTS HISTORY AND PHYSICAL PAPERS FROM [facility] (NIECY AGUAYO) STATES THAT PTS SURGICAL HISTORY STATES PT HAD CHOLECYSTECTOMY, ERCP WITH BILIARY BAG. THIS EXPLAINS PTS DRAIN TO RIGHT SIDE OF ABDOMEN.
[2017-11-04] VITALS: BP 141/63
[2017-11-04 04:54] VITALS: BP 146/59
--- NOTE | 2017-11-04 07:34 | NUR ---
PT HAS BEEN RESTING THROUGHOUT THE NIGHT. PLAN IS FOR PT TO RETURN TO THE HALFWAY TODAY. PT'S BLOOD SUGARS HAVE BEEN RUNNING ON THE LOW SIDE. WE HAVE BEEN MONITORING FS Q6HRS. BLOOD SUGARS RUNNING FROM 60'S TO 130'S. PT GIVEN OJ, CRACKERS AND PB TO BRING UP BLOOD SUGAR WITH GOOD RESPONSE. LAST FS= 85. WILL CONT TO MONITOR.
--- NOTE | 2017-11-04 07:42 | NUR ---
RECIEVED REPORT ON PATIENT, PATIENT IS RESTING AT THIS TIME. NAD NOTED. PATIENT AROUSES TO VOICE. PATIENT DENIES ANY NEEDS OR PAIN. BED IS LOW AND LOCKED. CALL LIGHT IN REACH. WILL CONT TO MONITOR PATIENT. CPOC
[2017-11-04 07:56] VITALS: BP 143/46
--- NOTE | 2017-11-04 08:55 | NUR ---
PATIENT EATING BREAKFAST AT THIS TIME. DENIES ANY NEEDS. CPOC
--- NOTE | 2017-11-04 10:19 | NUR ---
CHRIS BOONEN FOR RENAL. NEEDING DC ORDER, SO WE CAN GET PATIENT DC AND BACK TO [facility] IN TIME FOR HER TO GET TO DIAYLSIS. IF NOT PATIENT WILL HAVE TO GET DIAYLSIS HERE AND THEN GET TRANSFERRED BACK TO [place]. WAITING ICER HAND BACK. CPOC
--- NOTE | 2017-11-04 10:25 | NUR ---
PATIENT REFUSING TO WEAR SCDS AT THIS TIME, STATES SHE IS SUPPOSE TO BE DC TODAY. CPOC
--- NOTE | 2017-11-04 10:37 | NUR ---
DC ORDER GIVEN, WILL TALK WITH CASE MANAGEMENT REGARDING TRANSPORT
--- NOTE | 2017-11-04 11:29 | NUR ---
PATIENT DRESSED AND READY FOR DC. WAITING ON [facility] FOR TRANSPORT. CPOC
--- NOTE | 2017-11-04 12:05 | NUR ---
[facility] HERE FOR TRANSPORT. PATIENT READY FOR DC. EARRING PUT IN PATIENT ENVELOPE AND SENT WITH PATIENT. CPOC
--- NOTE | 2017-11-04 19:52 | NUR ---
LATE ENTRY 1045 PRIMARY NURSE, ABBY, SPOKE WITH TELECOMMUNICATIONS OFFICER. PATIENT TO BE DISCHARGED TO [facility] TODAY FOR DIALYSIS BNEFORE RETURNING TO [facility]. TC TO [facility]. SPOKE WITH SHALOM, THE PRIMARY NURSE, AT [phone]. SHE PLANS TO S/W TRANSPORTATION AND CALLBACK, ABBY, THE PRIMARY NURSE. 1205 PATIENT WAS TRANSPORTED VIA AMBULANCE TO [facility]. AT [address] HU [facility] [employer] AND [employer] FOR [facility]. TRANSFERE PACKET FOR [facility] SENT W/ [employer].
--- NOTE | 2017-11-10 11:12 | OP ---
PATIENT NAME: SAUL GUSTAFSON MEDICAL RECORD: [id number] :77 LOCATION:[facility] ADMISSION DATE: SURGEON: AZALIA NIELSEN MD DATE OF OPERATION: 11/03/2017 REFERRING PHYSICIAN: Hu Albert MD PREOPERATIVE DIAGNOSES: End-stage renal disease and dependence on hemodialysis and other mechanical complication of right arm AV graft with inability to reliably cannulate. POSTOPERATIVE DIAGNOSES: End-stage renal disease and dependence on hemodialysis and other mechanical complication of right arm AV graft with inability to reliably cannulate. 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 OPERATION PERFORMED: Fistulogram with ultrasound-guided access of the right upper extremity AV graft and balloon angioplasty of the in-stent and end of stent subclavian vein stenosis done with a 10 mm balloon at 9 atmospheres followed by treatment with a Lutonix 12 mm diameter drug-coated balloon. Following that, she had open thrombectomy and revision of the graft in the right arm with placement of an Acuseal PTFE jump graft and a completion fistulogram. SURGEON: Azalia Nielsen MD ANESTHESIA: General endotracheal per BARK SCALER. PREOPERATIVE NOTE: Ms. 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 She also has had complicated biliary tract disease and has a chronic biliary drain and she is not ambulatory. She has end-stage renal disease and is on hemodialysis, presently dialyzing with a right arm PTFE AV graft. She has had a long stent placed in the venous outflow with that stent extending to about the junction of the axillary and subclavian vein on the right and has a known in-stent and end of stent stenosis. Also her graft is too deep, it is difficult to feel and access and needs to be replaced with a more accessible graft. The patient is an outpatient and she is on Plavix. DESCRIPTION OF PROCEDURE: With the patient under anesthesia in supine position, she was prepped and draped in sterile manner. The right arm graft was accessed with ultrasound guidance and micropuncture technique and a fistulogram performed, which confirmed the presence of approximately an 80% in-stent stenosis near the proximal end and a stenosis at the proximal end of the stent in the subclavian vein. I inserted a 6-South African introducer and dilated the stenosis successfully with a 10 mm balloon inflated to 9 atmospheres with full effacement. After that, angiography revealed a 0% residual stenosis. I then treated the area with a 6 cm long, 12 mm diameter Lutonix balloon inflated and held at 10 atmospheres for 2 minutes. When that inflation was completed and the balloon deflated and removed, repeat contrast injection revealed thrombosis of the venous outflow. The patient was then systemically heparinized. I made 2 incisions on the arm and exposed the graft which was clamped and divided. OPERATIVE REPORT [id number] SAUL GUSTAFSON balloon catheter thrombectomy was performed and the graft flushed proximally and distally with heparinized saline. I chose a 6-mm diameter Acuseal graft and anastomosed it end-to-end to the venous end of the graft. That anastomosis was done with 6-0 Prolene and BioGlue. The new graft was then placed in a slightly more lateral subcutaneous tunnel placed as superficial and as close to the skin as I possibly could to make it palpable. The arterial end anastomosis was then done similarly with running 6-0 Prolene and BioGlue and when completed and the occluding clamps released, excellent flow was established in the new or revised AV graft. The wounds were irrigated with Ancef and gentamicin solution. The patient's heparin was partially reversed with 10 mg of protamine. The wounds were closed with interrupted inverted 3-0 Vicryl and running intracuticular 4-0 Monocryl and Dermabond glue. They were dressed with Maxorb Ag, Tegaderm and Cavilon skin prep. The patient was awakened from her anesthetic and taken to the recovery room. PLAN: Because of her disability and the fact that she has had general anesthesia and has some potential for bleeding, I believe that she should be kept in an overnight observation and then most likely discharged to return to her home in [place] tomorrow and have dialysis tomorrow with the new Acuseal graft as per Acuseal protocol tomorrow in [place]. Blood loss during the operation was insignificant, none replaced and all sponges, instruments, and needles were accounted for. No drain was used and no surgical specimen was submitted for histopathology. I would like her to start back on [facility] tomorrow if she has no bleeding complications and I will try to get her back to see me in the office in approximately 2 weeks. NOTE: The patient does have a tunneled dialysis catheter in the right femoral position and she will continue to be dialyzed with that for the next 2 weeks and her new Acuseal graft need not be accessed for that initial 2-week period, after which it can be cannulated according to Acuseal protocol and after that her TDC can be removed at [facility]. TRANSINT:[id number] Voice Confirmation ID: [id number] DOCUMENT ID: [id number] AZALIA NIELSEN MD at 1112 CC: HU ALBERT MD [id number] DICTATION DATE: 11/07/17 1335 WEED CUTTER: 11/07/17 1456 [facility] [place] 11/04/17 [facility] [address] [place] [address]
== END 2017-11-04 12:13 ==
LOC: D.OPS 08:22 → D.M2 16:53 → D.OPS 11-04 12:13
PROVIDERS: Anesthesiology; Surgery
DX: T82.590A Other mechanical complication of surgically created arteriovenous fistula, initial encounter (principal); T82.856A Stenosis of peripheral vascular stent, initial encounter; I87.1 Compression of vein; Z79.02 Long term (current) use of antithrombotics/antiplatelets; N18.6 End stage renal disease; Z99.2 Dependence on renal dialysis; Z01.812 Encounter for preprocedural laboratory examination

== ENCOUNTER 2018-01-29 11:54 | Inpatient (IN) | payer MEDICAID ==
[~2018-01-29] VITALS: Ht 157.5 cm; Wt 75.1 kg
--- NOTE | ~2018-01-29 | OP ---
PATIENT NAME: SAUL GUSTAFSON MEDICAL RECORD: [id number] :77 LOCATION:D.M2 D.2106 ADMISSION DATE:01/29/18 SURGEON: AZALIA NIELSEN MD DATE OF OPERATION: 01/30/2018 PREOPERATIVE DIAGNOSES: End-stage renal disease and dependence on hemodialysis with thrombosed right arm arteriovenous graft and no dialysis access. POSTOPERATIVE DIAGNOSES: End-stage renal disease and dependence on hemodialysis with thrombosed right arm arteriovenous graft and no dialysis access with the additional diagnosis of infected vascular graft, right arm. OPERATIONS PERFORMED: Exploration of right arm AV graft and excision of a grossly infected segment with temporary wound closure. Then, additionally ultrasound-guided insertion of a 19 cm HemoSplit tunneled dialysis catheter including superior vena cavogram. SURGEON: Azalia Nielsen MD ANESTHESIA: General with LMA per MAGAZINE REPAIRER. REFERRING PHYSICIANS: Dr. Gagnon and Dr. Hernandez. PREOPERATIVE NOTE: Ms. 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 Apparently, she developed renal failure about the same time as the stroke and has been on dialysis for a while with different accesses apparently thrombophilic. She has been able to maintain patency of her present Acuseal graft in the right arm in the brachial axillary position while on Eliquis. She presented to dialysis yesterday apparently with her graft thrombosed and she was admitted to the hospital, so that I could bring her to the operating room today to perform an angiogram and mechanical thrombolysis. DESCRIPTION OF THE PROCEDURE: The patient was placed on the operating table and found by the circulating nurse and OR techs to be quite dirty and soiled with dried feces and having some areas of skin breakdown, apparently signs of neglect. After being cleaned up, she was additionally prepped and draped in a sterile manner. During this process, the OR techs noted purulent drainage from an opening with size of an Nigerien P over her AV graft in the right arm. When I examined this, it was obvious that there was exposed graft underneath this lesion and I could express old blood and purulent-appearing matter. This area was explored and swabbed aggressively with culturettes, which were sent for routine culture and sensitivity as well as a Gram stain and anaerobic culture. The Gram stain returned moderate WBCs and a few gram-positive cocci. I made an elliptical incision and excised the opening and excised the generous portion of the underlying graft, which was not seeded in its tunnel hardly at all. Because of her anticoagulation, I did not attempt to remove the entire graft this evening but excised what I thought had to be done this evening and then tried to use electrocautery for hemostasis and then closed the skin with a running 3-0 Prolene. That wound was subsequently dressed with Maxorb Ag, Tegaderm, and Cavilon skin prep. The patient was given 1 gram of vancomycin as soon as I recognized what we are dealing with. OPERATIVE REPORT [id number] SAUL GUSTAFSON Then, as an additional procedure, she was reprepped and redraped and I examined her with ultrasound and found that the right internal jugular vein appeared sclerotic but possibly with a small patent lumen. I attempted to access this with micropuncture technique and ultrasound guidance, but this was unsuccessful. I did though find a tributary of the internal jugular really in the supraclavicular fossa at the base of the neck more laterally and I was able to access that with micropuncture technique and ultrasound and under fluoroscopy, the wire was passed down into the superior vena cava. A 4-Estonian catheter was advanced over the wire and then contrast injection was done to perform a superior vena cavogram. This was necessary due to my concern for central vein stenoses. There were none and I felt that it is quite possible to go ahead with a HemoSplit tunneled dialysis catheter insertion. I chose a 19 cm HemoSplit and made a small incision just beneath the clavicle for its entry site and then extended the incision around 4-Estonian catheter in the supraclavicular space. A larger guidewire was inserted through that 4-Estonian catheter and then dilators were passed under fluoroscopy and lastly a dilator peel-away sheath was inserted. The catheter was flushed with saline and then pulled through the subcutaneous tunnel from the entry site up to the primary cervical incision and it was then inserted through the peel-away sheath and positioned with its tip deep in the right atrium. Fluoroscopy revealed no visible signs of complication or malplacement. Both lumens were then accessed and aspirated, free return of blood confirmed. They were then flushed with saline and then Hep-Lock solution clamped and capped. The catheter was sutured to the skin near the entry site with 2-0 Prolene and the entry site stab wound was snugged up around the catheter with a single interrupted inverted subcuticular 3-0 Vicryl suture and similar suture was used to close the larger cervical incision. That incision was then sealed with glue and dressed with Maxorb AG and Tegaderm with Cavilon skin prep. A Biopatch with chlorhexidine dressing was applied to the dialysis catheter at the entry site, Cavilon skin prep was used to protect the skin and a standard central venous line dressing was applied over that. The patient was then awakened and taken to the recovery room. Blood loss during the operation was insignificant and unreplaced. All sponges, instruments and needles were accounted for. No drain was used. No surgical specimen was submitted for histopathology. The excised skin and subcutaneous fat as well as the segment of graft approximately 6 inches in length were discarded. The only specimen I sent to the lab was swabs for aerobic and anaerobic culture and Gram stain. PLAN: The patient will probably have dialysis here in the hospital tomorrow and the next day. She probably will not be able to be returned to the operating room before Monday afternoon or maybe even Monday due to her anticoagulation, but she will need to be returned to the operating room just to excise the residual infected vascular graft and placed a wound VAC dressing. For now, I will plan to leave her catheter dependent. TRANSINT:[id number] Voice Confirmation ID: [id number] DOCUMENT ID: [id number] OPERATIVE REPORT [id number] SAUL GUSTAFSON JAMES MD at 1546 CC: HU GAGNON MD and AGUSTÍN HERNANDEZ MD [id number] DICTATION DATE: 01/30/182115 MENTAL HYGIENIST: 01/30/18 2320 ADM IN [facility] [address] [id number]
--- NOTE | ~2018-01-29 | HEMODYNAMI ---
PATIENT:SAUL GUSTAFSON MEDICAL RECORD: [id number] : 77 LOCATION:[facility] D.2102 ADMISSION DATE: 01/29/18 Generatedon:02/05/201811:45 Patient name: SAUL GUSTAFSON Patient #: [id number] SSN : : 1975 Date of study: 02/05/2018 Page: Of Hemodynamic Procedure Report Patient Data Patient Demographics Procedure consent was obtained First Name: SAUL Gender: Female Last Name: SJ : 1975 Patient #: [id number] Age: 42 year(s) Race: Unknown Additional ID: [id number] Contact details [address]: [address] [place] [address] State: [place] City: [place] Zip code: [address] Admission Admission Data Admission Date: 01/29/2018 Admission Time: 15:01 Room #: D.2102 Procedure Procedure Types Cath Procedure Peripheral Cath Diagnostic Procedure Biliary Procedure Description Procedure Date Procedure Date: 02/05/2018 Procedure Start Time: 11:29 Procedure Staff Name Function Zack Valera MD Performing Physician Tate Walker RT Monitor Mona Simms RT Scrub Juliet Jung RN Nurse Candi Mccracken RN Nurse Procedure Data Cath Procedure Fluoroscopy Diagnostic fluoroscopy Total fluoroscopy Time: 0.8 time: 0.8 min min Diagnostic fluoroscopy Total fluoroscopy dose: 6 dose: 6 mGy mGy Contrast Material Contrast Material Type Amount (ml) Isovue 300 25 Procedure Medications Medication Administration Route Dosage Versed I.V. 1 mg Fentanyl 50 mcg Hemodynamics Rest Heart Rate: 56 (bpm) Snapshots Pre Cath Intra NCS Post Cath Vital Signs Time Heart Resp SPO2 etCO2 NIBP Rhythm Pain Sedation Rate (ipm) (%) (mmHg) (mmHg) Status Level (bpm) 11:26:52 56 28 37.1 144/54(93) NSR 0 (11) 10(A) , No pain 11:31:35 54 53 36.4 131/50(87) NSR 0 (11) 10(A) , No pain 11:36:18 52 12 100 34.9 110/43(68) NSR 0 (11) 8(A) , No pain 11:40:46 51 24 100 34.1 101/45(65) NSR 0 (11) 8(A) , No pain Medications Time Medication Route Dose Verified Delivered Reason Notes Effectivene ss by by 11:35:37 Versed I.V. 1 mg Zack Christopher for Mostly Soto Mccracken RN sedation sleeping @ MD 11:41:09 11:35:55 Fentanyl 50 Zack Christopher for Mostly mcg Soto Mccracken RN sedation sleeping @ MD 11:41:05 Procedure Log Time Note 11:04:28 Tate Aaron RT (R) (CV) sent for patient. Start room use. 11:04:37 Time tracking: Regular hours 11:04:42 Plan of Care:Hemodynamics will remain stable., Cardiac rhythm will remain stable., Comfort level will be maintained., Respiratory function will remain adequate., Patient/ family verbilizes understanding of procedure., Procedure tolerated without complication., Recovers from procedure without complications.. 11:04:53 Patient received from Cleo to IR Alert and oriented. Tansferred to table in Supine position. 11:04:55 Correct patient and procedure confirmed by team. 11:04:57 Signed procedure consent form obtained from patient. 11:04:59 ECG and BP/O2 sat monitors applied to patient. 11:04:59 - 11:05:03 H&P Date Dictated: 02/05/2018 Within 30 days and on chart.. 11:05:05 Pre-procedure instructions explained to patient. 11:05:06 Pre-op teaching completed and patient verbalized understanding. 11:05:10 Use device set IR Diagnostic 11:05:11 Sterile Angiographic Pack opened to sterile field. 11:05:12 Bag Decanter (2002S) opened to sterile field. 11:05:37 Family unavailable. 11:05:39 Patient NPO since Midnight. 11:07:00 Is the patient allergic to Iodine/contrast media? No. 11:07:10 Patient diabetic? Yes. 11:07:16 If diabetic: On Metformin? No 11:07:17 - 11:07:18 ----Pre-sedation anethsthesia assessment.---- 11:07:21 Previous problem with sedation/anesthesia? No ? 11:07:22 Snore? Yes 11:07:23 Sleep apnea? Yes 11:07:25 Deviated septum? No 11:07:28 Opens mouth fully? Yes 11:07:30 Sticks out tongue? Yes 11:07:33 Airway obstruction? No ? 11:07:38 Dentures? Yes in tight 11:25:18 Baseline sample Acquired. 11:25:18 Vital chart was started 11:28:51 Right abdomen area was prepped with chlora-prep and draped in sterile fashion 11:28:52 Physician arrived 11:28:52 --------ALL STOP TIME OUT------ 11:28:54 Final Timeout: patient, procedure, and site verified with staff and physician. All members of the team are in agreement. 11:28:57 Right abdomen site verified by team. 11:29:34 Procedure started. 11:29:35 Full Disclosure recording started 11:29:40 Local anesthetic to Abdominal area with Lidocaine 1% by Zack Valera MD.INITIAL ACCESS ONLY 11:32:05 Sedation plan: IV Moderate Sedation Medication:Versed, Fentanyl 11:32:25 KIT, INTRODUCER ACCUSTICK II W/C ([id number]) opened to sterile field. 11:35:37 Versed 1 mg I.V. was administered by Candi Mccracken RN; for sedation; 11:35:55 Fentanyl 50 mcg was administered by Candi Mccracken RN; for sedation; 11:36:04 [facility] .035 145 glide wire ([id number]) opened to sterile field. 11:38:02 GASTROSTOMY 18Fr Tri-Funnel Tube ([id number]) opened to sterile field. 11:39:48 Procedure ended.(Physican Out) 11:40:54 Fluoroscopy time 00.80 minutes. 11:40:58 Fluoroscopy dose: 6 mGy 11:40:58 Flurop Dose total: 6 11:41:05 Effectiveness of Fentanyl delivered @ 11:35:55 is: Mostly sleeping 11:41:09 Effectiveness of Versed delivered @ 11:35:37 is: Mostly sleeping 11:41:10 Contrast amount:Isovue 300 25ml. 11:41:14 Sharps counted by scrub and verified by R.N. 11:41:19 Insertion/operative site no bleeding no hematoma. 11:42:05 Post procedure instruction explained to patient.Patient verbalizes understanding. 11:42:06 Procedure and supply charges have been captured, reviewed, submitted an d are correct. 11:43:36 Report given to [facility]. 11:43:42 Patient transfered to [facility] with Bed. 11:45:14 Vital chart was stopped Device Usage Item Name Manufacture Quantity Catalog Hospital Part Current Minimal Lot# / Number Charge Number Stock Stock Serial# Code Sterile Cardinal 1 [id number] 5 Angiographic Health Pack Bag Decanter Microtek 1 2001S [id number] 5 (2001S) [employer] KIT, [place] 1 [id number] [id number] 5 [id number] INTRODUCER Scientific ACCUSTICK II W/C ([id number]) [facility] 1 [id number] 5 [id number] .035 145 glide wire ([id number]) GASTROSTOMY Bard 1 [id number] [id number] 5 18Fr Tri-Funnel Tube (647227) Signature Audit [place] Stage Time Signature Unsigned Intra-Procedure 02/05/2018 Tate 11:45:11 AM Aaron RT (R) (CV) Signatures Monitor : Tate Signature : Aaron RT Date : Time : [place] [id number]
--- NOTE | ~2018-01-29 | OP ---
PATIENT NAME: SAUL GUSTAFSON MEDICAL RECORD: [id number] :77 LOCATION:D.M2 D.2102 ADMISSION DATE:01/29/18 SURGEON: AZALIA NIELSEN MD DATE OF OPERATION: 02/09/2018 REFERRING PHYSICIAN: Hu Albert MD PREOPERATIVE DIAGNOSES: Infected vascular graft, right arm; end-stage renal disease and dependence on hemodialysis. POSTOPERATIVE DIAGNOSES: Infected vascular graft, right arm; end-stage renal disease and dependence on hemodialysis. OPERATION PERFORMED: Removal of PTFE vascular grafts from the right arm with direct suture repair of the right axillary artery. SURGEON: Azalia Nielsen MD ANESTHESIA: General with LMA per PAVING AND SURFACING LABOURER. PREOPERATIVE NOTE: Ms. Gustafson is an unfortunate 42-year-old white female, [facility] patient with numerous medical problems. She is on dialysis and has been dialyzing with right upper extremity axillary loop AV graft. The graft recently thrombosed and when I took her to the operating room with plans for fistulogram and mechanical thrombolysis, I found to my dismay that she actually had an ulcer over her graft and a grossly infected underlying PTFE graft. At that time, I excised the skin ulceration and excised a length of the underlying PTFE and cultured the area. Because she was so anticoagulated on Eliquis, I did not attempt to remove the entire graft. I sutured the wound and applied a dressing and stopped her anticoagulation and she has returned to the OR now to remove the rest of the infected foreign material. DESCRIPTION OF PROCEDURE: Under general anesthesia in supine position, the patient was prepped and draped in a sterile manner. I made one long incision from axilla to near the antecubital space. Actually there were 2 grafts, there was an old original standard wall PTFE graft and a newer Acuseal graft segment. They were both exposed and dissected from the surrounding tissues, adhesions, and some areas were quite dense and others due to the infection, there was a little attachment of the graft to the sides of the tunnels. I extended my incision proximally and up into the axilla and there the dissection was difficult. I was able to expose the arterial anastomosis, so I could not safely in a reasonable period of time expose the axillary artery fully proximally and distally. I did use a partially occluding clamp to close the arterial anastomosis and then removed the graft from the artery. There was no gross infection of the artery at that point and I repaired the artery with a direct running suture of 6-0 Prolene. Doppler demonstrated actually good flow in the axillary artery and proximal brachial artery and good flow in the radial artery at the wrist as well after the suture repair. I dissected the venous outflow limb and found that the venous anastomosis contained a stent and the vein was thrombosed. I transected the graft and stent at the venous anastomosis and then ligated the remaining stent within the remaining vein with 2-0 Prolene. I then removed all of the now fully mobilized graft and discarded it. I partially closed the axillary portion of the wound and then applied a black foam wound dressing to the remaining open areas and then applied a VeraFlo VAC dressing with plans for periodic or intermittent Dakin solution wound irrigation. We OPERATIVE REPORT [id number] SAUL GUSTAFSON will plan for the dressing to be changed on Monday and she will be seen and followed by inpatient wound nurse healthcare economics consultant. Blood loss during this procedure was about 25 cc and was unreplaced. All sponges, instruments, and needles were accounted for. No drain was used other than the wound VAC. TRANSINT:[id number] Voice Confirmation ID: [id number] DOCUMENT ID: [id number] AZALIA NIELSEN MD at 0959 CC: HU ALBERT MD [id number] DICTATION DATE: 02/09/18 1139 LABORATORY CHIEF: 02/09/18 1213 ADM [id number] [place] [address]
[~2018-01-29 11:54] MED LIST changes: +ELIQUIS5 MG PT
[2018-01-29 19:00] VITALS: BP 129/42
[2018-01-29 22:15] LABS: BASOPHILS 0.5 % (0-2); EOSINOPHILS 2.3 % (0-7); HEMATOCRIT 30.5 % (36.0-48.0); HEMOGLOBIN 10.3 g/dL (12-16); IMMATURE GRANULOCYTES 0.3 % (0-5); LYMPHOCYTES 26.1 % (15-50); MCH 35.4 pg (26.0-34.0); MCHC 33.8 g/dL (31.0-37.0); MCV 104.8 fL (80.0-100.0); MEAN PLATELET VOLUME 9.8 fL (7.4-10.4); MONOCYTES 5.3 % (2-11); NEUTROPHILS 65.5 % (40-80); PLATELET COUNT 267 10x3/uL (130-400); RBC 2.91 10x6/uL (4.00-5.40); RDW 16.2 % (11.5-14.5); WBC 7.9 10x3/uL (4.8-10.8)
[2018-01-29 22:25] LABS: INR 1.21 (0.85-1.17); PROTIME 14.8 SECONDS (11.6-15.0)
[2018-01-29 22:29] LABS: ANION GAP 19.2 mmol/L (8-16); CALCIUM 8.9 mg/dL (8.5-10.1); CARBON DIOXIDE 20.8 mmol/L (21.0-32.0); CREATININE - SERUM 9.4 mg/dL (0.6-1.3)
[2018-01-30] VITALS (7 sets, daily range): BP systolic 143–190; BP diastolic 46–80; Ht 157.5 cm; Wt 75.1 kg
[2018-01-30 10:05] LABS: BASOPHILS 0.4 % (0-2); EOSINOPHILS 2.4 % (0-7); HEMATOCRIT 29.1 % (36.0-48.0); HEMOGLOBIN 9.7 g/dL (12-16); IMMATURE GRANULOCYTES 0.1 % (0-5); LYMPHOCYTES 22.2 % (15-50); MCHC 33.3 g/dL (31.0-37.0); MCV 105.1 fL (80.0-100.0); MONOCYTES 5.4 % (2-11); NEUTROPHILS 69.5 % (40-80); PLATELET COUNT 291 10x3/uL (130-400); RBC 2.77 10x6/uL (4.00-5.40); RDW 16.1 % (11.5-14.5)
[2018-01-30 10:14] LABS: APTT 36.2 SECONDS (22.8-39.4); PROTIME 17.4 SECONDS (11.6-15.0)
[2018-01-30 10:17] LABS: ANION GAP 22.1 mmol/L (8-16); CALCIUM 8.6 mg/dL (8.5-10.1); CARBON DIOXIDE 19.7 mmol/L (21.0-32.0); POTASSIUM - SERUM 4.8 mmol/L (3.5-5.1)
[2018-01-30 10:20] LABS: INR 1.48 (0.85-1.17)
[2018-01-31 04:00] VITALS: BP 121/46
[2018-01-31 06:35] LABS: BASOPHILS 0.4 % (0-2); HEMATOCRIT 29.2 % (36.0-48.0); HEMOGLOBIN 9.4 g/dL (12-16); IMMATURE GRANULOCYTES 0.1 % (0-5); LYMPHOCYTES 22.7 % (15-50); MCH 34.4 pg (26.0-34.0); MCHC 32.2 g/dL (31.0-37.0); MEAN PLATELET VOLUME 10.2 fL (7.4-10.4); NEUTROPHILS 67.8 % (40-80); PLATELET COUNT 262 10x3/uL (130-400); RBC 2.73 10x6/uL (4.00-5.40); RDW 16.5 % (11.5-14.5)
[2018-01-31 07:07] LABS: CALCIUM 7.3 mg/dL (8.5-10.1); CREATININE - SERUM 10.4 mg/dL (0.6-1.3); PHOSPHOROUS 7.8 mg/dL (2.5-4.9)
[2018-01-31 07:10] LABS: CARBON DIOXIDE 14.6 mmol/L (21.0-32.0); POTASSIUM - SERUM 5.6 mmol/L (3.5-5.1)
[2018-01-31 08:00] VITALS: BP 137/55
[2018-01-31 12:34] VITALS: BP 126/55
[2018-01-31 17:14] VITALS: BP 133/64
[2018-01-31 19:00] VITALS: BP 108/47
[2018-02-01 04:00] VITALS: BP 121/51
[2018-02-01 06:11] LABS: BASOPHILS 0.5 % (0-2); EOSINOPHILS 3.4 % (0-7); HEMATOCRIT 29.7 % (36.0-48.0); HEMOGLOBIN 9.6 g/dL (12-16); IMMATURE GRANULOCYTES 0.2 % (0-5); LYMPHOCYTES 19.2 % (15-50); MCH 34.4 pg (26.0-34.0); MCHC 32.3 g/dL (31.0-37.0); MCV 106.5 fL (80.0-100.0); MEAN PLATELET VOLUME 9.8 fL (7.4-10.4); MONOCYTES 7.6 % (2-11); NEUTROPHILS 69.1 % (40-80); PLATELET COUNT 234 10x3/uL (130-400); RBC 2.79 10x6/uL (4.00-5.40); RDW 16.3 % (11.5-14.5); WBC 6.6 10x3/uL (4.8-10.8)
[2018-02-01 06:35] LABS: CALCIUM 7.6 mg/dL (8.5-10.1); VANCOMYCIN - RANDOM 16.7 ug/mL (10.0-20.0)
[2018-02-01 06:45] LABS: ANION GAP 16.2 mmol/L (8-16); CARBON DIOXIDE 25.5 mmol/L (21.0-32.0); PHOSPHOROUS 3.8 mg/dL (2.5-4.9); POTASSIUM - SERUM 3.7 mmol/L (3.5-5.1)
[2018-02-01 09:15] VITALS: BP 108/45
[2018-02-01 11:39] VITALS: BP 110/47
[2018-02-01 16:43] VITALS: BP 118/48
[2018-02-02] VITALS: BP 116/53
[2018-02-02 04:00] VITALS: BP 110/48
[2018-02-02 05:46] LABS: BASOPHILS 0.3 % (0-2); EOSINOPHILS 5.2 % (0-7); HEMATOCRIT 28.7 % (36.0-48.0); HEMOGLOBIN 9.1 g/dL (12-16); LYMPHOCYTES 26.6 % (15-50); MCH 34.3 pg (26.0-34.0); MCHC 31.7 g/dL (31.0-37.0); MCV 108.3 fL (80.0-100.0); MEAN PLATELET VOLUME 9.7 fL (7.4-10.4); MONOCYTES 8.6 % (2-11); NEUTROPHILS 59.3 % (40-80); PLATELET COUNT 202 10x3/uL (130-400); RBC 2.65 10x6/uL (4.00-5.40); RDW 16.3 % (11.5-14.5); WBC 6.5 10x3/uL (4.8-10.8)
[2018-02-02 06:17] LABS: CARBON DIOXIDE 30.7 mmol/L (21.0-32.0); POTASSIUM - SERUM 3.7 mmol/L (3.5-5.1)
[2018-02-02 06:21] LABS: CREATININE - SERUM 3.3 mg/dL (0.6-1.3); PHOSPHOROUS 2.8 mg/dL (2.5-4.9)
[2018-02-02 07:30] VITALS: BP 103/46
[2018-02-02 13:03] VITALS: BP 127/61
[2018-02-02 15:43] VITALS: BP 105/48
[2018-02-03 06:37] VITALS: BP 118/49
[2018-02-03 07:19] LABS: BASOPHILS 0.5 % (0-2); EOSINOPHILS 3.7 % (0-7); HEMATOCRIT 29.6 % (36.0-48.0); HEMOGLOBIN 9.1 g/dL (12-16); IMMATURE GRANULOCYTES 0.1 % (0-5); LYMPHOCYTES 22.7 % (15-50); MCH 34.6 pg (26.0-34.0); MCHC 30.7 g/dL (31.0-37.0); MEAN PLATELET VOLUME 9.8 fL (7.4-10.4); MONOCYTES 6.1 % (2-11); NEUTROPHILS 66.9 % (40-80); PLATELET COUNT 191 10x3/uL (130-400); RBC 2.63 10x6/uL (4.00-5.40); RDW 16.2 % (11.5-14.5)
[2018-02-03 07:20] LABS: MCV 112.5 fL (80.0-100.0); WBC 8.6 10x3/uL (4.8-10.8)
[2018-02-03 07:24] LABS: ANION GAP 17.4 mmol/L (8-16); CALCIUM 8.7 mg/dL (8.5-10.1); CARBON DIOXIDE 25.6 mmol/L (21.0-32.0); VANCOMYCIN - RANDOM 12.3 ug/mL (10.0-20.0)
[2018-02-03 07:25] LABS: CREATININE - SERUM 5.3 mg/dL (0.6-1.3); PHOSPHOROUS 4.5 mg/dL (2.5-4.9)
[2018-02-03 08:44] VITALS: BP 136/48
[2018-02-03 11:49] VITALS: BP 109/58
[2018-02-03 17:00] VITALS: BP 122/59
[2018-02-03 19:00] VITALS: BP 102/69
[2018-02-04] VITALS: BP 114/50
[2018-02-04 04:00] VITALS: BP 114/38
[2018-02-04 06:47] LABS: BASOPHILS 0.7 % (0-2); EOSINOPHILS 4.1 % (0-7); HEMATOCRIT 28.3 % (36.0-48.0); HEMOGLOBIN 8.9 g/dL (12-16); IMMATURE GRANULOCYTES 0.2 % (0-5); LYMPHOCYTES 28.4 % (15-50); MCH 34.5 pg (26.0-34.0); MCHC 31.4 g/dL (31.0-37.0); MONOCYTES 8.5 % (2-11); NEUTROPHILS 58.1 % (40-80); PLATELET COUNT 212 10x3/uL (130-400); RBC 2.58 10x6/uL (4.00-5.40); RDW 15.9 % (11.5-14.5); WBC 8.1 10x3/uL (4.8-10.8)
[2018-02-04 06:51] LABS: MCV 109.7 fL (80.0-100.0)
[2018-02-04 06:53] LABS: ANION GAP 13.7 mmol/L (8-16); CARBON DIOXIDE 31.4 mmol/L (21.0-32.0)
[2018-02-04 06:54] LABS: CREATININE - SERUM 3.1 mg/dL (0.6-1.3); PHOSPHOROUS 3.2 mg/dL (2.5-4.9); POTASSIUM - SERUM 3.1 mmol/L (3.5-5.1)
[2018-02-04 08:26] VITALS: BP 134/65
[2018-02-04 11:37] VITALS: BP 120/46
[2018-02-04 16:53] VITALS: BP 122/52
[2018-02-04 22:30] VITALS: BP 118/50
[2018-02-05 00:30] VITALS: BP 110/54
[2018-02-05 04:30] VITALS: BP 130/52
[2018-02-05 05:35] LABS: BASOPHILS 3.1 % (0-2); EOSINOPHILS 4.4 % (0-7); HEMATOCRIT 25.6 % (36.0-48.0); HEMOGLOBIN 8.4 g/dL (12-16); IMMATURE GRANULOCYTES 0.6 % (0-5); LYMPHOCYTES 31.8 % (15-50); MCH 35.3 pg (26.0-34.0); MCHC 32.8 g/dL (31.0-37.0); MEAN PLATELET VOLUME 11.4 fL (7.4-10.4); MONOCYTES 6.2 % (2-11); NEUTROPHILS 53.9 % (40-80); RBC 2.38 10x6/uL (4.00-5.40); RDW 15.5 % (11.5-14.5); WBC 7.1 10x3/uL (4.8-10.8)
[2018-02-05 05:36] LABS: MCV 107.6 fL (80.0-100.0); PLATELET COUNT 110 10x3/uL (130-400)
[2018-02-05 05:47] LABS: % SATURATION 24 % (15-55); IRON 45 ug/dl (35-150); TOTAL IRON BIND CAPACITY 181 ug/dl (260-445); UNSAT IRON BIND CAPACITY 136 ug/dl (150-375)
[2018-02-05 06:36] LABS: ANION GAP 19.3 mmol/L (8-16); CALCIUM 8.5 mg/dL (8.5-10.1); CARBON DIOXIDE 26.2 mmol/L (21.0-32.0); POTASSIUM - SERUM 3.5 mmol/L (3.5-5.1)
[2018-02-05 06:43] LABS: CREATININE - SERUM 5.2 mg/dL (0.6-1.3)
[2018-02-05 08:13] VITALS: BP 121/51
[2018-02-05 08:37] LABS: INR 1.09 (0.85-1.17); PROTIME 13.7 SECONDS (11.6-15.0)
[2018-02-05 15:45] VITALS: BP 138/54
[2018-02-05 17:11] LABS: AEROBE ID Final report (()); RESULT 1 Escherichia coli (())
[2018-02-05 20:29] VITALS: BP 141/57
[2018-02-06 01:15] VITALS: BP 114/40
[2018-02-06 05:21] VITALS: BP 131/50
[2018-02-06 06:32] LABS: BASOPHILS 0.3 % (0-2); EOSINOPHILS 5.5 % (0-7); HEMATOCRIT 25.2 % (36.0-48.0); HEMOGLOBIN 7.9 g/dL (12-16); IMMATURE GRANULOCYTES 0.1 % (0-5); LYMPHOCYTES 28.6 % (15-50); MCH 33.9 pg (26.0-34.0); MCHC 31.3 g/dL (31.0-37.0); MCV 108.2 fL (80.0-100.0); MEAN PLATELET VOLUME 9.8 fL (7.4-10.4); MONOCYTES 6.3 % (2-11); NEUTROPHILS 59.2 % (40-80); RBC 2.33 10x6/uL (4.00-5.40); RDW 15.1 % (11.5-14.5); WBC 6.7 10x3/uL (4.8-10.8)
[2018-02-06 06:36] LABS: PLATELET COUNT 226 10x3/uL (130-400)
[2018-02-06 06:38] LABS: ANION GAP 19.7 mmol/L (8-16); CALCIUM 7.6 mg/dL (8.5-10.1); CARBON DIOXIDE 27.6 mmol/L (21.0-32.0)
[2018-02-06 06:40] LABS: PHOSPHOROUS 7.9 mg/dL (2.5-4.9)
[2018-02-06 06:41] LABS: CREATININE - SERUM 7.5 mg/dL (0.6-1.3); POTASSIUM - SERUM 4.3 mmol/L (3.5-5.1)
[2018-02-06 08:01] VITALS: BP 132/58
[2018-02-06 17:06] VITALS: BP 102/56
[2018-02-06 20:00] VITALS: BP 111/53
[2018-02-07] VITALS: BP 111/47
[2018-02-07 04:00] VITALS: BP 104/40
[2018-02-07 07:52] LABS: ANION GAP 17.3 mmol/L (8-16); CALCIUM 9.1 mg/dL (8.5-10.1); CARBON DIOXIDE 26.9 mmol/L (21.0-32.0); POTASSIUM - SERUM 4.2 mmol/L (3.5-5.1)
[2018-02-07 07:58] VITALS: BP 150/55
[2018-02-07 07:59] LABS: CREATININE - SERUM 4.7 mg/dL (0.6-1.3); PHOSPHOROUS 5.3 mg/dL (2.5-4.9)
[2018-02-07 09:06] LABS: BASOPHILS 0.5 % (0-2); EOSINOPHILS 5.9 % (0-7); IMMATURE GRANULOCYTES 0.1 % (0-5); LYMPHOCYTES 31.5 % (15-50); MCH 33.5 pg (26.0-34.0); MCHC 32.1 g/dL (31.0-37.0); MONOCYTES 6.2 % (2-11); NEUTROPHILS 55.8 % (40-80); PLATELET COUNT 238 10x3/uL (130-400); RDW 19.5 % (11.5-14.5); WBC 7.9 10x3/uL (4.8-10.8)
[2018-02-07 09:13] LABS: HEMOGLOBIN 10.9 g/dL (12-16); MCV 104.6 fL (80.0-100.0); RBC 3.25 10x6/uL (4.00-5.40)
[2018-02-07 11:34] VITALS: BP 146/65
[2018-02-07 16:37] VITALS: BP 109/54
[2018-02-07 20:09] VITALS: BP 107/60
[2018-02-08 01:38] VITALS: BP 121/67
[2018-02-08 05:21] VITALS: BP 149/83
[2018-02-08 06:47] LABS: BASOPHILS 0.5 % (0-2); EOSINOPHILS 3.7 % (0-7); HEMATOCRIT 32.9 % (36.0-48.0); HEMOGLOBIN 10.7 g/dL (12-16); IMMATURE GRANULOCYTES 0.1 % (0-5); LYMPHOCYTES 26.7 % (15-50); MCHC 32.5 g/dL (31.0-37.0); MCV 104.4 fL (80.0-100.0); PLATELET COUNT 238 10x3/uL (130-400); RBC 3.15 10x6/uL (4.00-5.40); RDW 18.5 % (11.5-14.5); WBC 8.1 10x3/uL (4.8-10.8)
[2018-02-08 07:01] LABS: ANION GAP 23.9 mmol/L (8-16); CALCIUM 8.5 mg/dL (8.5-10.1)
[2018-02-08 07:03] LABS: CREATININE - SERUM 6.5 mg/dL (0.6-1.3); PHOSPHOROUS 7.5 mg/dL (2.5-4.9); POTASSIUM - SERUM 4.9 mmol/L (3.5-5.1)
[2018-02-08 08:45] VITALS: BP 149/87
[2018-02-08 20:00] VITALS: BP 123/61
[2018-02-09] VITALS: BP 104/50
[2018-02-09 04:00] VITALS: BP 114/40
[2018-02-09 04:13] LABS: BASOPHILS 0.9 % (0-2); EOSINOPHILS 4.3 % (0-7); HEMATOCRIT 37.2 % (36.0-48.0); LYMPHOCYTES 34.1 % (15-50); MCH 33.7 pg (26.0-34.0); MCHC 32.3 g/dL (31.0-37.0); MCV 104.5 fL (80.0-100.0); MEAN PLATELET VOLUME 10.1 fL (7.4-10.4); MONOCYTES 8.4 % (2-11); NEUTROPHILS 52.3 % (40-80); PLATELET COUNT 261 10x3/uL (130-400); RBC 3.56 10x6/uL (4.00-5.40); WBC 6.6 10x3/uL (4.8-10.8)
[2018-02-09 04:17] LABS: CALCIUM 9.7 mg/dL (8.5-10.1)
[2018-02-09 04:20] LABS: CREATININE - SERUM 4.5 mg/dL (0.6-1.3); PHOSPHOROUS 5.6 mg/dL (2.5-4.9)
[2018-02-09 08:08] VITALS: BP 121/63
[2018-02-09 08:43] LABS: HCG SERUM NEGATIVE (NEGATIVE)
[2018-02-09 20:00] VITALS: BP 102/43
[2018-02-10 04:00] VITALS: BP 112/48
[2018-02-10 06:08] LABS: BASOPHILS 0.6 % (0-2); EOSINOPHILS 3.7 % (0-7); HEMOGLOBIN 9.8 g/dL (12-16); IMMATURE GRANULOCYTES 0.1 % (0-5); LYMPHOCYTES 21.7 % (15-50); MCH 33.4 pg (26.0-34.0); MCHC 31.6 g/dL (31.0-37.0); MCV 105.8 fL (80.0-100.0); MEAN PLATELET VOLUME 9.9 fL (7.4-10.4); MONOCYTES 8.4 % (2-11); NEUTROPHILS 65.5 % (40-80); PLATELET COUNT 241 10x3/uL (130-400); RBC 2.93 10x6/uL (4.00-5.40); RDW 17.7 % (11.5-14.5); WBC 6.8 10x3/uL (4.8-10.8)
[2018-02-10 06:33] LABS: ANION GAP 21.3 mmol/L (8-16); CALCIUM 8.8 mg/dL (8.5-10.1); CARBON DIOXIDE 20.8 mmol/L (21.0-32.0); POTASSIUM - SERUM 5.1 mmol/L (3.5-5.1)
[2018-02-10 06:41] LABS: CREATININE - SERUM 6.4 mg/dL (0.6-1.3)
[2018-02-10 09:47] VITALS: BP 116/44
[2018-02-10 18:13] VITALS: BP 121/52
[2018-02-10 21:35] VITALS: BP 113/40
[2018-02-11 01:24] VITALS: BP 125/49
[2018-02-11 06:30] VITALS: BP 86/42
[2018-02-11 07:06] LABS: BASOPHILS 0.6 % (0-2); EOSINOPHILS 4.3 % (0-7); HEMATOCRIT 29.1 % (36.0-48.0); HEMOGLOBIN 9.1 g/dL (12-16); IMMATURE GRANULOCYTES 0.2 % (0-5); LYMPHOCYTES 35.1 % (15-50); MCH 33.3 pg (26.0-34.0); MCHC 31.3 g/dL (31.0-37.0); MCV 106.6 fL (80.0-100.0); MEAN PLATELET VOLUME 9.7 fL (7.4-10.4); MONOCYTES 11.6 % (2-11); NEUTROPHILS 48.2 % (40-80); PLATELET COUNT 208 10x3/uL (130-400); RBC 2.73 10x6/uL (4.00-5.40); RDW 17.9 % (11.5-14.5)
[2018-02-11 07:14] LABS: WBC 4.8 10x3/uL (4.8-10.8)
[2018-02-11 07:33] LABS: ALBUMIN 2.8 g/dL (3.4-5.0); ANION GAP 17.4 mmol/L (8-16); BILIRUBIN - TOTAL 0.3 mg/dL (0.2-1.3); CALCIUM 8.5 mg/dL (8.5-10.1); CARBON DIOXIDE 24.8 mmol/L (21.0-32.0); VANCOMYCIN - RANDOM 23.4 ug/mL (10.0-20.0)
[2018-02-11 07:36] LABS: CREATININE - SERUM 4.5 mg/dL (0.6-1.3); POTASSIUM - SERUM 4.2 mmol/L (3.5-5.1)
[2018-02-11 09:10] VITALS: BP 142/58
[2018-02-11 13:41] VITALS: BP 115/58
[2018-02-11 16:18] VITALS: BP 158/68
[2018-02-11 20:43] VITALS: BP 103/60
[2018-02-12 02:27] VITALS: BP 149/61
[2018-02-12 06:26] LABS: BASOPHILS 0.5 % (0-2); EOSINOPHILS 5.2 % (0-7); HEMATOCRIT 28.8 % (36.0-48.0); HEMOGLOBIN 9.2 g/dL (12-16); IMMATURE GRANULOCYTES 0.2 % (0-5); LYMPHOCYTES 26.6 % (15-50); MCH 33.5 pg (26.0-34.0); MCHC 31.9 g/dL (31.0-37.0); MCV 104.7 fL (80.0-100.0); MEAN PLATELET VOLUME 9.3 fL (7.4-10.4); MONOCYTES 11.2 % (2-11); NEUTROPHILS 56.3 % (40-80); PLATELET COUNT 218 10x3/uL (130-400); RBC 2.75 10x6/uL (4.00-5.40); RDW 17.4 % (11.5-14.5)
[2018-02-12 07:00] LABS: ALBUMIN 2.6 g/dL (3.4-5.0); ANION GAP 16.6 mmol/L (8-16); BILIRUBIN - TOTAL 0.37 mg/dL (0.2-1.3); CALCIUM 8.6 mg/dL (8.5-10.1); CARBON DIOXIDE 25.5 mmol/L (21.0-32.0); CREATININE - SERUM 6.3 mg/dL (0.6-1.3); POTASSIUM - SERUM 4.1 mmol/L (3.5-5.1); PROTEIN - SERUM 6.6 g/dL (6.4-8.2); VANCOMYCIN - RANDOM 22.2 ug/mL (10.0-20.0)
[2018-02-12 09:19] VITALS: BP 125/55
[2018-02-12 11:39] VITALS: BP 151/72
== END 2018-02-12 14:23 | disposition home or self-care (01) | DRG 252 ==
LOC: D.ER 11:54 → D.M2 15:01 → D.EDHOLD 15:01 → D.M2 18:59
PROVIDERS: Anesthesiology; Internal Medicine; Internal Medicine Nephrology; Specialist; Student in an Organized Health Care Education/Training Program; Surgery
PROC: 02HV33Z Insertion of Infusion Device into Superior Vena Cava, Percutaneous Approach (ICD-10-PCS; 2018-01-30)
PROC: B548ZZA Ultrasonography of Superior Vena Cava, Guidance (ICD-10-PCS; 2018-01-30)
PROC: B5181ZZ Fluoroscopy of Superior Vena Cava using Low Osmolar Contrast (ICD-10-PCS; 2018-01-30)
PROC: 05BY0ZZ Excision of Upper Vein, Open Approach (ICD-10-PCS; principal; 2018-01-30 13:15)
PROC: 0JH63XZ Insertion of Tunneled Vascular Access Device into Chest Subcutaneous Tissue and Fascia, Percutaneous Approach (ICD-10-PCS; 2018-01-30 13:15)
PROC: 03PY0JZ Removal of Synthetic Substitute from Upper Artery, Open Approach (ICD-10-PCS; 2018-02-09)
PROC: 03Q70ZZ Repair Right Brachial Artery, Open Approach (ICD-10-PCS; 2018-02-09)
DX: T82.7XXA Infection and inflammatory reaction due to other cardiac and vascular devices, implants and grafts, initial encounter (principal); N18.6 End stage renal disease; I12.0 Hypertensive chronic kidney disease with stage 5 chronic kidney disease or end stage renal disease; D68.59 Other primary thrombophilia; N39.0 Urinary tract infection, site not specified; T82.868A Thrombosis due to vascular prosthetic devices, implants and grafts, initial encounter; Y83.8 Other surgical procedures as the cause of abnormal reaction of the patient, or of later complication, without mention of misadventure at the time of the procedure; E11.22 Type 2 diabetes mellitus with diabetic chronic kidney disease; Z99.2 Dependence on renal dialysis; D63.1 Anemia in chronic kidney disease; E87.6 Hypokalemia; K59.00 Constipation, unspecified; Z86.73 Personal history of transient ischemic attack (TIA), and cerebral infarction without residual deficits

== ENCOUNTER 2018-07-13 09:38 | Day surgery (SDC) | payer MEDICAID ==
[~2018-07-13] VITALS: Ht 162.6 cm; Wt 74.5 kg
--- NOTE | ~2018-07-13 | OP ---
PATIENT NAME: SAUL GUSTAFSON MEDICAL RECORD: [id number] :77 LOCATION:[facility] ADMISSION DATE: SURGEON: AZALIA NIELSEN MD DATE OF OPERATION: 07/13/2018 PREOPERATIVE DIAGNOSES: End-stage renal disease with no long-term dialysis access, history of thrombophilia, multiple dialysis access failures, and multiple access infections including MRSA. POSTOPERATIVE DIAGNOSES: End-stage renal disease with no long-term dialysis access, history of thrombophilia, multiple dialysis access failures, and multiple access infections including MRSA. OPERATION PERFORMED: Implantation of left arm brachial artery to axillary vein ProCol AV graft. SURGEON: Azalia Nielsen MD ANESTHESIA: General with LMA per SENIOR CLERK and regional nerve block. PREOPERATIVE NOTE: Ms. Gustafson is an unfortunate 42-year-old white female patient who suffered brain damage from prolonged period of cerebral ischemia during cardiac arrest. She has chronic renal failure and is on hemodialysis. She has suffered multiple dialysis access failures and infections. She is presently catheter dependent with a right internal jugular tunneled dialysis catheter. She is brought to the hospital today to implant a new biologic AV graft in her left arm in hopes that it will be less likely to become infected and perhaps less likely to thrombose. Under general anesthesia, the patient was placed in supine position, prepped and draped in sterile manner. She was examined first with ultrasound and then 2 incisions were made, one longitudinal incision over the medial aspect of the upper arm just below the axilla and another on the medial aspect of the arm just above the antecubital space. In the proximal incision, the axillary vein was exposed and controlled with Silastic loops. The axillary artery and brachial artery at this level were quite deep, and with her history of infections, I really did not want to have to go back in to remove an infected graft through all of these venous and neural structures to reach this hard to get to axillary artery. So, I then went to the brachial artery just above the antecubital space. It was exposed and controlled with Silastic loops. The vein was occluded, opened, and flushed with dilute heparin solution. The ProCol graft was taken from its container and prepared as per the instructions. The outflow end of the graft was then bevelled and anastomosed end-to-side, i.e., end of ProCol graft to side of axillary vein, with running 6-0 Prolene. When completed and the loops were released, backflow distended the graft but there was no bleeding. The graft and axillary vein were then flushed again with heparinized saline. The graft was placed in a very superficial rainbow-shaped subcutaneous tunnel, bringing it back down to the brachial artery incision. The graft was again distended and there was no evidence of any kink or twist. The graft was then shortened and bevelled. The artery was opened and flushed proximally and distally with heparinized saline. The graft was anastomosed end of graft to side of artery with running 6-0 Prolene. When that anastomosis was complete and the occluding loops released, immediately there was good flow in the AV graft and suture lines were all hemostatic. There was good Doppler pulsatile continuous flow in the graft and low resistance type pulsatile continuous flow OPERATIVE REPORT [id number] SAUL GUSTAFSON in the brachial artery proximal to the anastomosis. There was persistence of more normal high resistance type flow in the brachial artery distal to the arterial anastomosis and in the radial artery at the wrist. The wounds were then irrigated with saline and saline-containing Ancef and gentamicin. The wounds were closed with interrupted inverted 3-0 Vicryl without the use of any drains. Skin was closed with kaylee and the wounds were then dressed with Maxorb Ag, Tegaderm, and Cavilon skin prep. The patient was awakened and taken to the recovery room in stable condition. Blood loss during the procedure was insignificant and unreplaced. All sponges, instruments, and needles were accounted for. No drain was used. PLAN: The patient is to remain in the hospital overnight. She is at risk of bleeding and it is rather late. She has no transportation all the way back to [facility] at this hour. Plan is for her to have dialysis here tomorrow with her tunneled catheter and then, assuming she is stable, she will be discharged by nephrology. I plan to see her back in my office in approximately one week. I want to delay accessing her new graft for 2-3 weeks. TRANSINT:[id number] Voice Confirmation ID: [id number] DOCUMENT ID: [id number] AZALIA NIELSEN MD at 1054 CC: [id number] DICTATION DATE: 07/13/181916 ELECTRIC MOTOR REBUILDER: 07/13/182013 [facility] 07/14/18 [facility] [address] [facility] [place] [address]
[2018-07-13 10:37] LABS: BASOPHILS 0.8 % (0-2); EOSINOPHILS 4.3 % (0-7); HEMATOCRIT 40.2 % (36.0-48.0); HEMOGLOBIN 12.1 g/dL (12-16); IMMATURE GRANULOCYTES 0.9 % (0-5); LYMPHOCYTES 26.3 % (15-50); MCH 29.2 pg (26.0-34.0); MCHC 30.1 g/dL (31.0-37.0); MCV 96.9 fL (80.0-100.0); MEAN PLATELET VOLUME 10.8 fL (7.4-10.4); NEUTROPHILS 61.7 % (40-80); PLATELET COUNT 120 10x3/uL (130-400); RBC 4.15 10x6/uL (4.00-5.40); RDW 20.4 % (11.5-14.5); WBC 6.5 10x3/uL (4.8-10.8)
[2018-07-13 13:27] VITALS: BP 139/72; BMI 32.8
[2018-07-13] MEDS ORDERED: OMEPRAZOLE20 M1 PO (13:48)
[2018-07-13] MEDS ORDERED: CARAFATE1 G/10 ML PO (13:50)
[2018-07-13] MEDS ORDERED: SODIUM BICARBO325 MG PO (13:52)
[2018-07-13] MEDS ORDERED: LIPITOR10 MG PO (13:53)
[2018-07-13] MEDS ORDERED: MIDODRINE HCL2.5 MG PO (13:53)
[2018-07-13] MEDS ORDERED: VITAMIN B650 MG PO (13:56)
[2018-07-13] MEDS ORDERED: ESTER-C 500 MG1 TAB PO (13:56)
[2018-07-13] MEDS ORDERED: MULTIPLE VITAMI1 TA1 PO (13:56)
[2018-07-13] MEDS ORDERED: MELATONIN 3 MG1 TAB (13:58)
[2018-07-13 15:30] LABS: CALCIUM 7.7 mg/dL (8.5-10.1); CARBON DIOXIDE 26.4 mmol/L (21.0-32.0); CREATININE - SERUM 6.5 mg/dL (0.6-1.3); POTASSIUM - SERUM 5.4 mmol/L (3.5-5.1)
[2018-07-13 15:38] LABS: APTT 28.6 SECONDS (22.8-39.4)
[2018-07-13 15:53] LABS: INR 1.04 (0.85-1.17); PROTIME 13.2 SECONDS (11.6-15.0)
[2018-07-13 16:11] LABS: HCG SERUM NEGATIVE (NEGATIVE)
[2018-07-13 20:22] VITALS: BP 133/55
[2018-07-14] VITALS: BP 114/48
[2018-07-14 02:52] VITALS: Ht 162.6 cm; Wt 74.5 kg
[2018-07-14 06:35] VITALS: BP 111/48
[2018-07-14 07:53] VITALS: BP 130/37
[2018-07-14] MEDS ORDERED: PLAVIX75 MG PO (07:56)
[2018-07-14] MEDS ORDERED: VIBRAMYCIN50 MG PO (07:59)
== END 2018-07-14 10:50 ==
LOC: D.OPS 09:38 → D.M2 19:28 → D.OPS 07-14 10:50
PROVIDERS: Surgery
DX: N18.6 End stage renal disease (principal); Z99.2 Dependence on renal dialysis; D68.59 Other primary thrombophilia; Z86.14 Personal history of Methicillin resistant Staphylococcus aureus infection; I69.398 Other sequelae of cerebral infarction; Z01.812 Encounter for preprocedural laboratory examination

== ENCOUNTER 2018-09-14 08:18 | Day surgery (SDC) | payer MEDICAID ==
[~2018-09-14] VITALS: Ht 157.5 cm; Wt 76.2 kg
--- NOTE | ~2018-09-14 | OP ---
PATIENT NAME: SAUL MCNALLY MEDICAL RECORD: [id number] :77 LOCATION:[facility] ADMISSION DATE: SURGEON: AZALIA NIELSEN MD DATE OF OPERATION: 09/14/2018 REFERRING PHYSICIAN: Hu Albert MD PREOPERATIVE DIAGNOSES: End-stage renal disease and thrombosed left arm AV graft thrombophilia, hypertension, diabetes. POSTOPERATIVE DIAGNOSES: End-stage renal disease and thrombosed left arm AV graft thrombophilia, hypertension, diabetes. OPERATION PERFORMED: Ultrasound-guided access and fistulogram and thrombolysis, left arm. SURGEON: Azalia Nielsen MD ANESTHESIA: General with LMA per QUALITY ASSURANCE/R&D LAB TECHNICIAN. PREOPERATIVE NOTE: This unfortunate lady is 43 years old. 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 She has end-stage renal disease and is presently catheter dependent, having had multiple prior dialysis access failures and infections. About 2 months ago, I implanted a ProCol AV graft in her left arm brachial artery to basilic vein and she apparently thrombosed that graft almost right away and had no followup with her for about 2 months. She is brought to the hospital and to the operating room now for at least an attempt to reopen this chronically thrombosed AV graft in a patient with a thrombophilia and all the other problems. The patient was unable to tolerate IV sedation for even the prep for the procedure and it was necessary to administer general anesthesia with an LMA by the QUALITY ASSURANCE/R&D LAB TECHNICIAN. The left arm was then prepped and draped in a sterile manner. The rainbow graft was accessed with ultrasound technique and micropuncture technique. A 6-Slovak sheath was inserted near the arterial anastomosis. A Glidewire was advanced to the venous anastomosis, but would not pass proximally. A glide catheter was used and despite multiple attempts, I could not get the Glidewire to pass and neither could I get a Roadrunner wire to pass. I infused 2 mg of TPA mixed with contrast into the venous end of the graft and body of the graft and allowed it to sit or dwell for approximately 10 minutes and then resumed attempts to pass guidewires and catheters, and I was able to advance a guidewire and catheter a couple of inches more proximally, but contrast injection demonstrated extravasation. I used the AngioJet to lyse thrombus in the body of the graft and in the venous end and venous anastomosis, but all in all this was totally unsuccessful at restoring a lumen to the venous outflow. I elected to stop the procedure at that point. The 6-Slovak sheath was removed. There was no bleeding. A Band-Aid was applied, and the patient awakened and taken to the recovery room. She will go back to the care home today, and at this point, I have no plans to operate on her again at least in the very near future. We will leave her catheter dependent. TRANSINT:[id number] Voice Confirmation ID: [id number] DOCUMENT ID: [id number] OPERATIVE REPORT [id number] SAUL MCNALLY JAMES MD at 2031 CC: HU ALBERT MD [id number] DICTATION DATE: 09/14/18 1554 PT SKILLED: 09/14/18 1651 [facility] 09/14/18 [facility] [address] [place] [address]
[~2018-09-14 08:18] MED LIST changes: +CARAFATE1 G/10 ML PO; +ESTER-C 500 MG1 TAB PO; +LIPITOR10 MG PO; +MELATONIN 3 MG1 TAB; +MIDODRINE HCL2.5 MG PO; +MULTIPLE VITAMI1 TA1 PO; +OMEPRAZOLE20 M1 PO; +PLAVIX75 MG PO; +SODIUM BICARBO325 MG PO; +VIBRAMYCIN50 MG PO
[2018-09-14 08:48] LABS: EOSINOPHILS 2.8 % (0-7); HEMATOCRIT 37.8 % (36.0-48.0); HEMOGLOBIN 11.9 g/dL (12-16); IMMATURE GRANULOCYTES 0.2 % (0-5); LYMPHOCYTES 35.4 % (15-50); MCH 32.1 pg (26.0-34.0); MCHC 31.5 g/dL (31.0-37.0); MCV 101.9 fL (80.0-100.0); MEAN PLATELET VOLUME 10.8 fL (7.4-10.4); MONOCYTES 5.4 % (2-11); NEUTROPHILS 55.2 % (40-80); RBC 3.71 10x6/uL (4.00-5.40)
[2018-09-14 08:56] LABS: PLATELET COUNT 185 10x3/uL (130-400)
[2018-09-14 09:04] LABS: APTT 26.8 SECONDS (22.8-39.4); INR 0.97 (0.85-1.17); PROTIME 12.5 SECONDS (11.6-15.0)
[2018-09-14 09:10] LABS: ANION GAP 17.9 mmol/L (8-16); CALCIUM 8.8 mg/dL (8.5-10.1); CREATININE - SERUM 5.2 mg/dL (0.6-1.3); POTASSIUM - SERUM 4.9 mmol/L (3.5-5.1)
[2018-09-14 11:46] LABS: HCG SERUM NEGATIVE (NEGATIVE)
[2018-09-14 11:53] VITALS: BP 164/98; Ht 157.5 cm; Wt 76.2 kg
== END 2018-09-14 16:15 | disposition home or self-care (01) ==
LOC: D.OPS 08:18
PROVIDERS: Anesthesiology; Surgery
DX: T82.868A Thrombosis due to vascular prosthetic devices, implants and grafts, initial encounter (principal); E11.22 Type 2 diabetes mellitus with diabetic chronic kidney disease; I12.0 Hypertensive chronic kidney disease with stage 5 chronic kidney disease or end stage renal disease; N18.6 End stage renal disease; Z99.2 Dependence on renal dialysis; Z01.812 Encounter for preprocedural laboratory examination; G93.89 Other specified disorders of brain

== ENCOUNTER 2018-11-26 06:50 | Day surgery (SDC) | payer MEDICARE ==
[~2018-11-26] VITALS: Ht 157.5 cm; Wt 79.8 kg
[~2018-11-26 06:50] MED LIST changes: +PACERONE100 MG PO; -PACERONE100 MG PT; +PHOSLO667 MG PO; -PHOSLO667 MG PT; +REGLAN SOL10 MG/10 M PO; -REGLAN SOL10 MG/10 M PT; +SUPER B COMPLE150 MG PO; -VITAMIN B COMPL1 TAB PT
[2018-11-26 07:17] LABS: BASOPHILS 0.9 % (0-2); EOSINOPHILS 3.2 % (0-7); HEMATOCRIT 34.9 % (36.0-48.0); HEMOGLOBIN 11.2 g/dL (12-16); IMMATURE GRANULOCYTES 0.1 % (0-5); LYMPHOCYTES 34.4 % (15-50); MCH 33.6 pg (26.0-34.0); MCHC 32.1 g/dL (31.0-37.0); MCV 104.8 fL (80.0-100.0); MEAN PLATELET VOLUME 10.2 fL (7.4-10.4); MONOCYTES 7.1 % (2-11); NEUTROPHILS 54.3 % (40-80); RBC 3.33 10x6/uL (4.00-5.40); RDW 15.9 % (11.5-14.5); WBC 7.7 10x3/uL (4.8-10.8)
[2018-11-26 07:18] LABS: PLATELET COUNT 223 10x3/uL (130-400)
[2018-11-26 07:26] LABS: INR 1.01 (0.85-1.17); PROTIME 12.8 SECONDS (11.6-15.0)
[2018-11-26 07:27] LABS: ANION GAP 19.3 mmol/L (8-16); CALCIUM 8.9 mg/dL (8.5-10.1); POTASSIUM - SERUM 5.3 mmol/L (3.5-5.1)
[2018-11-26 07:48] LABS: HCG SERUM NEGATIVE (NEGATIVE)
[2018-11-26 08:46] VITALS: BP 134/75; Ht 157.5 cm; Wt 79.8 kg
[2018-11-26] MEDS ORDERED: HYDROCODON-ACE1 EAC7 PO (13:03)
--- NOTE | 2018-11-26 16:57 | NUR ---
1548 LEFT SUBCLAVIAN DIALYSIS CATHETER INTACTED. REMOVED NS IV TUBING FROM PORT AND FLUSHED WITH 10CC NS AND THEN FOLLOWED WITH HEPARIN FLUSH 1,600 UNITS IV. 1600 AFTER PATIENT GOT INTO WHEELCHAIR, SHE HAD SOME BLOOD OOZE FROM DRESSING UNDER AXILLARY AREA. DSG REINFORCED WITH DRESSING AND NO ADDITIONAL BLEEDING NOTED. 1620 PT COMPLAINING OF PAIN 9 OUT OF 10. HAS A LONG DRIVE BACK TO [facility]. ULTRAM GIVEN PO PRIOR TO PATIENT'S DISCHARGE. 1634 PT WITH HYDROELECTRIC STATION OPERATOR FROM THE [facility] WHO WILL DRIVE HER BACK TO THE [facility]. SHE HAS DISCHARGE PACKET AND HIBICLENS SOAP FOR PT TO USE AT [facility]. SHE WAS PRESENT WHEN DISCHARGE INSTRUCTIONS WERE COVERED WITH PATIENT AND SIGNED FOR PATIENT AT PATIENT'S REQUEST.
--- NOTE | 2018-11-29 09:29 | OP ---
PATIENT NAME: SAUL MCNALLY MEDICAL RECORD: [id number] :77 LOCATION:[facility] ADMISSION DATE: SURGEON: AZALIA NIELSEN MD DATE OF OPERATION: 11/26/2018 PREOPERATIVE DIAGNOSES: End-stage renal disease and dependence on hemodialysis and loss of access by thrombosis of AV graft. She also has a history of wound infections and vascular graft infections. She is brought to the operating room at this time with plans to implant an Artegraft AV shunt in her left upper extremity. PREOPERATIVE NOTE: Under general anesthesia with an LMA per PEER COUNSELOR, the patient was placed in supine position with the left arm extended and prepped and draped in a sterile manner. I used a duplex ultrasound to examine the axilla and the upper arm and noted that the most usable vein was the axillary vein and the artery was certainly larger there. I made first a vertical incision through the old scar and exposed the brachial artery, which I found to be too small to utilize and there was too much scarring to allow for safe dissection of any veins and I elected then to go more proximally. I made a transverse axillary incision and exposed and controlled with vessel loops the axillary vein and the axillary artery. The vein was controlled at a point of confluence with a deeper brachial vein and basilic vein and there was a prominent valve located just at that site. The patient's body habitus and scarring prevented certainly easy safe exposure of the more proximal axillary vein. The artery likewise was difficult to expose and I encircled it proximally above the origin of the deep brachial artery and encircled both distally. The patient was given 2000 units of heparin and an Artegraft was rinsed with saline as per protocol. It was then bevelled and prepared for anastomosis. The artery was occluded and opened. It did not have calcifications, but did dissect extremely easily the intima flaking away from the median adventitia. I flushed the artery proximally with heparinized saline and distally as well. I then performed an end-to-side Artegraft to side of axillary artery anastomosis done with running 6-0 Prolene and treated the suture line with BioGlue. That suture line proved to be quite hemostatic. I made a counter incision distally on the arm after outlining where I thought the graft should be placed to provide the most length of usable access. I then placed the graft in a very superficial subcutaneous tunnel as a loop and using the counter incision brought it back to the axillary wound. There it was shortened somewhat and bevelled and the vein occluded. The vein was opened and flushed with heparinized saline and an end-to-side anastomosis of graft to vein was then done with running 6-0 Prolene. That anastomosis likewise was treated with BioGlue and was hemostatic. The venous anastomosis is very close to almost right on top of that major valve and I think it is certainly at risk for developing stenosis and I anticipate doing very early an angiogram with likely stenting of this region. With the graft open, I noted that I could not detect Doppler flow in the radial or ulnar artery at the wrist or in the brachial artery at the elbow. I examined her with Duplex ultrasound and noted that there was pulsatile flow in her brachial artery and the elbow at least. I performed a retrograde arteriogram by clamping the venous outflow and inserting a micropuncture catheter into the Artegraft injecting contrast to fill the brachial artery retrograde. The brachial and axillary arteries are quite small, especially the brachial artery, which seems like just a thread, but there is flow through the distal brachial artery and into radial and ulnar arteries and good flow distally. This was with the graft occluded. The catheter was removed and the site oversewn with a OPERATIVE REPORT [id number] SAUL MCNALLY [id number] 6-0 Prolene and the clamp removed. I then examined her again with Duplex ultrasound and noted that there was definitely pulsatile flow in the radial artery as well as in the distal brachial artery. I then irrigated the wounds with Ancef-gentamicin solution and closed subcutaneous tissue with interrupted inverted 3-0 Vicryl. Skin was closed with a running intracuticular 4-0 Monocryl for the transverse axillary incision. The 2 other straight incisions were closed with kaylee. Sterile dressings were applied, and the patient awakened and taken to the recovery room in stable condition. Blood loss was minimal, perhaps 10 cc. None was replaced. Sponges, instruments, and needles were accounted for. No drain was used and no surgical specimen was submitted for histopathology. I will have the patient back to see me in my office in 7-10 days. She is to continue her usual dialysis schedule and dialysis via her right IJ TDC. She is to continue all of her same home medications. I have given a prescription for [place] fourteen, 5, she can take 1 every 4 hours p.r.n. pain and also I placed her on doxycycline 50 mg 1 daily indefinitely. I also have asked for daily Hibiclens baths and Bactroban to the nares b.i.d. at her [facility]. TRANSINT:[id number] Voice Confirmation ID: [id number] DOCUMENT ID: [id number] AZALIA NIELSEN MD at 0929 CC: HU GAGNON MD [id number] DICTATION DATE: 11/26/18 1526 BOTTOMING MACHINE OPERATOR: 11/27/18 0117 [facility] 11/26/18 [id number] [place] [address]
== END 2018-11-26 16:34 | disposition home or self-care (01) ==
LOC: D.OPS 06:50
PROVIDERS: Anesthesiology; Internal Medicine Nephrology
DX: E11.22 Type 2 diabetes mellitus with diabetic chronic kidney disease (principal); I12.0 Hypertensive chronic kidney disease with stage 5 chronic kidney disease or end stage renal disease; N18.6 End stage renal disease; D68.59 Other primary thrombophilia; T82.868A Thrombosis due to vascular prosthetic devices, implants and grafts, initial encounter; Y83.8 Other surgical procedures as the cause of abnormal reaction of the patient, or of later complication, without mention of misadventure at the time of the procedure

== ENCOUNTER 2018-12-02 12:14 | Inpatient (IN) | payer MEDICARE ==
[~2018-12-02] VITALS: Ht 157.5 cm; Wt 102.7 kg
[~2018-12-02 12:14] MED LIST changes: +HYDROCODON-ACE1 EAC7 PO
--- NOTE | 2018-12-02 12:45 | NUR ---
ULTRASOUND AT BEDSIDE.
--- NOTE | 2018-12-02 13:01 | NUR ---
PT TO ED 10 C/O INFECTION TO FISTULA IN LEFT UPPER ARM WHICH WAS PLACED JUANCHO. REDNESS NOTED, SWELLING, SEROSANGUINOUS DRAINAGE PRESENT.
[2018-12-02] MEDS ORDERED: ABILIFY10 MG PO (14:18)
[2018-12-02] MEDS ORDERED: FERROUS SULFAT325 MG PO (14:27)
[2018-12-02] MEDS ORDERED: PROCRIT/EP10000 UNIT SQ (14:28)
[2018-12-02] MEDS ORDERED: FOLIC ACID1 MG PO (14:44)
[2018-12-02] MEDS ORDERED: ONDANSETRON4 MG/2 M3 IV (14:45)
[2018-12-02] MEDS ORDERED: NORCO 7.5/325 T1 TA1 (14:45)
[2018-12-02] MEDS ORDERED: ASCORBIC ACID500 MG PO (14:46)
[2018-12-02] MEDS ORDERED: VITAMIN B650 MG PO (14:46)
[2018-12-02 15:15] LABS: ALBUMIN 3.3 g/dL (3.4-5.0); ANION GAP 18.7 mmol/L (8-16); BILIRUBIN - TOTAL 0.38 mg/dL (0.2-1.3); CALCIUM 9.5 mg/dL (8.5-10.1); CARBON DIOXIDE 24.7 mmol/L (21.0-32.0); CREATININE - SERUM 7.1 mg/dL (0.6-1.3); POTASSIUM - SERUM 4.4 mmol/L (3.5-5.1); PROTEIN - SERUM 7.8 g/dL (6.4-8.2)
[2018-12-02 15:20] LABS: BASOPHILS 0.6 % (0-2); EOSINOPHILS 3.2 % (0-7); HEMATOCRIT 32.2 % (36.0-48.0); HEMOGLOBIN 10.3 g/dL (12-16); IMMATURE GRANULOCYTES 0.2 % (0-5); LYMPHOCYTES 31.6 % (15-50); MCH 33.7 pg (26.0-34.0); MCV 105.2 fL (80.0-100.0); MEAN PLATELET VOLUME 10.2 fL (7.4-10.4); MONOCYTES 6.3 % (2-11); NEUTROPHILS 58.1 % (40-80); PLATELET COUNT 243 10x3/uL (130-400); RBC 3.06 10x6/uL (4.00-5.40); RDW 15.8 % (11.5-14.5); WBC 6.2 10x3/uL (4.8-10.8)
--- NOTE | 2018-12-02 18:31 | NUR ---
PT WILL BE TRANSFERRED TO ROOM 2139 AFTER GETTING A CENTRAL LINE PLACED BY DR. MICHELE.
--- NOTE | 2018-12-02 18:55 | NUR ---
DR. MICHELE AT BEDSIDE PLACING CENTRAL LINE AT THIS TIME.
--- NOTE | 2018-12-02 19:25 | NUR ---
VANCOMYCIN CONT ON ADMIT
--- NOTE | 2018-12-02 19:25 | NUR ---
DR. MICHELE ADVISED OK TO USE CVL, PT TAKEN TO THE FLOOR AT THIS TIME
[2018-12-02 21:20] VITALS: BP 111/45
[2018-12-02 22:24] VITALS: BP 111/45; BMI 41.2
[2018-12-02] MEDS ORDERED: BACTROBAN NASAL1 GM NASAL (22:44)
[2018-12-02] MEDS ORDERED: MELATONIN 3 MG1 TAB PO (22:47)
[2018-12-02] MEDS ORDERED: REMERON30 MG PO (22:56)
[2018-12-02] MEDS ORDERED: ZOFRAN4 MG PO (22:58)
[2018-12-02] MEDS ORDERED: NORCO 7.5/325 T1 TA1 PO (22:59)
[2018-12-02] MEDS ORDERED: MULTI-DAY VITAM1 TAB PO (23:01)
[2018-12-02] MEDS ORDERED: VIBRAMYCIN50 MG PO (23:02)
--- NOTE | 2018-12-03 00:17 | NUR ---
PT ARRIVED VIA STRETCHER FORM ER AT 5HRS. NO DISTRESS NOTED. IV TO UPPER L ARM INFILTRATED DC'D WITH CATHETER INTACT. LTLIJ NOTED. ALL 3 LUMENS WITH EXCELLENT BLOOD RETURN. VANCOMYCIN RESTARTED TO DISTAL PORT AT 125CC/ HR. INFUSED WITHOUT DIFFICULTIES. WATER AND SNACK GIVEN. PT INCONTINENT OF STOOL AT 2230 HRS. INCONTINENT CARE DONE. PT TURNS WELL IN BED. ADMISSION ASSESSMENT, HISTORY AND HOME MED LIST COMPLETED BY 2310 HRS. TLIJ SL AT THAT TIME. UPPER R ARM RED AND SWOLLEN. WARM TO TOUCH. DEBORAH NOTED. OLD FISTULA NOTED TO R ARM. FLAT AFFECT. LUNGS ESENTIALLY CTA. BILAT UPPER EXTREMITY WEAKNESS NOTED. SPEECH SLOW AND DELIBERATE. ZAIDI. HAS C/O INCISIONAL PAIN. RENAL SERVICES CALLED AND ORDER FOR NORCO 7.5/325 OBTAINED. NORCO 7.5 PO GIVEN AT 2317 HRS. PT CURRENTLY RESTING WITH EYES CLOSED. RESP EVEN AND REGULAR. SR UP X2, CALL LIGHT WITHIN REACH.
--- NOTE | 2018-12-03 00:38 | NUR ---
NO TELEMETRY AVAILABLE AT THIS TIME.
[2018-12-03 00:57] VITALS: BP 91/34
--- NOTE | 2018-12-03 01:54 | NUR ---
PT RESTING WITH EYES CLOSED. RESP EVEN AND REGULAR. SR UP X2, CALL LIGHT WITHIN REACH.
--- NOTE | 2018-12-03 04:48 | NUR ---
PT INCONTINENT OF STOOL. INCONTINENT CARE DONE. PT REPOSITIONED IN BED FOR COMFORT. CALL LIGHT WITHIN REACH.
[2018-12-03 05:53] VITALS: BP 169/63
--- NOTE | 2018-12-03 07:31 | NUR ---
VSS THROUGHOUT SHIFT. PT STATED NORCO ALLEVIATED PAIN. NEEDS MET; WILL CONTINUE TO MONITOR.
--- NOTE | 2018-12-03 07:41 | NUR ---
REPORT RECEIVED. WILL CONTINUE WITH POC. PT CURRENTLY LYING SEMI FOWLERS. CALL LIGHT W/I REACH. PT IS RESTING AT THE MOMENT. RR EVEN AND UNLABORED ON RA. L.IJ CVL IS SALINE LOCKED. PT DENIES ANY NEEDS AT THIS TIME. WILL CTM.
[2018-12-03 09:20] VITALS: BP 137/45
--- NOTE | 2018-12-03 11:27 | NUR ---
RESTING QUIETLY NAD NOTED
[2018-12-03 14:30] VITALS: Ht 157.5 cm; Wt 102.7 kg
--- NOTE | 2018-12-03 17:01 | NUR ---
RECEIVED WRITEN ORDER THAT IF VAN TROUGH WAS LESS THAN 20 TO ADMINISTER 1GRAM OF VANC IV. ORDERED VANCOMYCIN ONE TIME 1G DOSE. WILL CTM.
--- NOTE | 2018-12-03 19:17 | NUR ---
AT REST BUT AROUSES EASILY WITH VOICE. LCTA SKIN WARM AND DRY BED LOW WITH CALL LIGHT IN REACH SRX2 ALERT AND ORIENTED DENIES NEEDS AT THIS TIME PEDAL PULSES PRES
[2018-12-03 20:56] VITALS: BP 155/58
--- NOTE | 2018-12-03 21:50 | NUR ---
STAFF ALERTED ME TO BLOOD AT SITE OF STAPPLES UNDER LEFT ARM ...SCANT AMOUNT OF BLOOD NOTED UNDER OPSITE OPSITE REMOVED AND CLEANED CLOTTING LEFT INTACT AND APPLIED GUAZE DRSSING AT THIS TIME. PT ALERT AND ORIENTED AND DENIES ANY NEW PAIN
--- NOTE | 2018-12-03 23:27 | NUR ---
FULL STACK SOFTWARE DEVELOPER AT BEDSIDE TO OBTAIN VITALS, CALL LIGHT IN REACH. WILL CONTINUE WITH PLAN OF CARE.
--- NOTE | 2018-12-04 00:40 | NUR ---
AT REST WITH EYES CLOSED BANDAGE WITH NO BLEED THROUGH...BED LOW SRX2 AND CALL LIGHT IN REACH
[2018-12-04 02:02] VITALS: BP 129/51
[2018-12-04 06:09] VITALS: BP 137/41
[2018-12-04 06:27] LABS: BASOPHILS 0.3 % (0-2); EOSINOPHILS 3.6 % (0-7); HEMATOCRIT 27.5 % (36.0-48.0); HEMOGLOBIN 9.2 g/dL (12-16); IMMATURE GRANULOCYTES 0.2 % (0-5); LYMPHOCYTES 24.1 % (15-50); MCH 34.6 pg (26.0-34.0); MCHC 33.5 g/dL (31.0-37.0); MCV 103.4 fL (80.0-100.0); MEAN PLATELET VOLUME 9.6 fL (7.4-10.4); MONOCYTES 7.1 % (2-11); NEUTROPHILS 64.7 % (40-80); PLATELET COUNT 230 10x3/uL (130-400); RBC 2.66 10x6/uL (4.00-5.40); RDW 15.6 % (11.5-14.5); WBC 5.8 10x3/uL (4.8-10.8)
[2018-12-04 06:49] LABS: ANION GAP 19.7 mmol/L (8-16); CARBON DIOXIDE 23.5 mmol/L (21.0-32.0); PHOSPHOROUS 6.1 mg/dL (2.5-4.9); POTASSIUM - SERUM 4.2 mmol/L (3.5-5.1); VANCOMYCIN - RANDOM 36.2 ug/mL (10.0-20.0)
[2018-12-04 06:50] LABS: CREATININE - SERUM 10.6 mg/dL (0.6-1.3)
--- NOTE | 2018-12-04 07:43 | NUR ---
REPORT RECEIVED. WILL CONTINUE WITH POC. PT CURRENTLY LYING SUPINE. CALL LIGHT W/I REACH. PT IS RESTING AT THE MOMENT. RR EVEN AND UNLABORED ON RA. L.IJ CVL IS SALINE LOCKED. PT IS BEDFAST. WILL CTM.
[2018-12-04 09:34] VITALS: BP 118/79
--- NOTE | 2018-12-04 11:05 | NUR ---
RESTING QUIETLY NAD NOTED
--- NOTE | 2018-12-04 11:34 | NUR ---
Dressing changes to incision sites at left upper arm and left axilla. Both sites have kaylee intact. Redness and edema noted axilla distal to elbow. Incision site left axilla cultured as per Dr. Roman's order. When culturette was inserted in between kaylee a large amount of reddish pink drainage was noted. No odor was detected. Prior to culturing, both sites were cleansed with saf clens and patted dry. After culturing, Tegaderm was applied over left upper arm incision and mepilex AG was applied over axillary incision. Pt tolerated well.
[2018-12-04 13:11] VITALS: BP 139/67
--- NOTE | 2018-12-04 16:44 | OP ---
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 PROCEDURE: Insertion of left internal jugular 20 cm triple lumen central venous catheter. SURGEON: Raymond Michele MD OCCUPATIONAL THERAPIST REHAB MANAGER: None. BLOOD LOSS: Minimal. ANESTHESIA: Local. COMPLICATIONS: None. The risks, possible complications and alternatives to procedure were explained to the patient. She elects to proceed. OPERATIVE COURSE: The entire procedure was performed in the Emergency Room in the presence of a female nurse. I was asked to place a central venous line emergently. I interrogated the left neck with the hand-held ultrasound. I identified a compressible left internal jugular vein. This was marked with a pen. The left neck was sterilely prepped and draped. A local anesthetic was used to infiltrate the skin and subcutaneous tissues at the base of left neck. Left internal jugular vein was percutaneously accessed in an antegrade fashion. A guidewire passed easily. A small skin fernanda was accomplished. A vessel dilator was used to dilate a subcutaneous tract. A 20 cm triple lumen central venous catheter was inserted to the hub. It was sutured in place times 3. All lumens flushed easily and aspirated dark, nonpulsatile blood. A stat portable chest x-ray revealed adequate placement of the central venous line without radiographic evidence of complication. TRANSINT:[id number] Voice Confirmation ID: [id number] DOCUMENT ID: [id number] OPERATIVE REPORT [id number] SAUL MCNALLY ROBERT MD at 1644 CC: [id number] DICTATION DATE: 12/02/181942 NURSING STAFFING COORDINATOR: 12/02/18 2147 ADM [facility] [address] [place] [address]
--- NOTE | 2018-12-04 18:17 | NUR ---
PT CURRENTLY IN DIALYSIS. WILL PASS REPORT AND CONTINUE WITH POC.
--- NOTE | 2018-12-04 19:37 | NUR ---
BACK FROM RENAL ANGELIQUE AT THIS TIME ALERT AND ORIENTED.. LCTA PEDAL PULSES PRESENT. ASSISTED WITH COMFORT AND MEAL ..CO PAIN AT A 7 PRN MED GIVEN.. BED LOW CALL LIGHT IN REACH HOB UP
--- NOTE | 2018-12-04 19:57 | NUR ---
FLUSHED WHITE ORT OF CVL AND STARTED NORMAL SALINE AT 10 ML/HOUR
--- NOTE | 2018-12-04 20:08 | NUR ---
LEFT ARM IS RED TIGHT WITH DEBORAH INTACT.. REPORTED TO ME THAT WOUND CARE DRAINED PURELANT FLUID FROM SITE TODAY. PT IS BEING TREATED WITH ANTIBIOTICS
[2018-12-05 00:56] VITALS: BP 118/50
--- NOTE | 2018-12-05 01:50 | NUR ---
BED LOW AND CALL LIGHT IN REACH RESTING WITH EYES CLOSED
--- NOTE | 2018-12-05 04:26 | NUR ---
[facility]
--- NOTE | 2018-12-05 04:33 | NUR ---
PT ASLEEP. NO S/S OF DISTRESS. BEDLOW AND CALL LIGHT IN REACH. WILL CPOC
[2018-12-05 05:01] LABS: BASOPHILS 0.8 % (0-2); EOSINOPHILS 4.3 % (0-7); HEMATOCRIT 28.3 % (36.0-48.0); HEMOGLOBIN 9.2 g/dL (12-16); IMMATURE GRANULOCYTES 0.2 % (0-5); LYMPHOCYTES 26.1 % (15-50); MCH 33.6 pg (26.0-34.0); MCHC 32.5 g/dL (31.0-37.0); MCV 103.3 fL (80.0-100.0); MEAN PLATELET VOLUME 9.7 fL (7.4-10.4); MONOCYTES 8.3 % (2-11); NEUTROPHILS 60.3 % (40-80); PLATELET COUNT 244 10x3/uL (130-400); RBC 2.74 10x6/uL (4.00-5.40); RDW 15.3 % (11.5-14.5); WBC 6.3 10x3/uL (4.8-10.8)
[2018-12-05 05:21] LABS: ANION GAP 17.8 mmol/L (8-16); CARBON DIOXIDE 25.6 mmol/L (21.0-32.0); VANCOMYCIN - RANDOM 26.4 ug/mL (10.0-20.0)
[2018-12-05 05:36] LABS: CREATININE - SERUM 7.4 mg/dL (0.6-1.3); POTASSIUM - SERUM 3.4 mmol/L (3.5-5.1)
[2018-12-05 06:09] VITALS: BP 109/48
--- NOTE | 2018-12-05 07:34 | NUR ---
REPORT RECEIVED. WILL CONTINUE WITH POC. PT CURRENTLY LYING SEMI FOWLERS. CALL LIGHT W/I REACH. PT IS RESTING AT THE MOMENT. RR EVEN AND UNLABORED ON RA. L.IJ CVL IS SALINE LOCKED. PT DENIES ANY NEEDS. WILL CTM.
[2018-12-05 08:06] VITALS: BP 107/62
--- NOTE | 2018-12-05 10:36 | NUR ---
RESTS WITH EYES CLOSED. IV PATENT. CALL LIGHT IN REACH. WILL CONT. PLAN OF CARE.
[2018-12-05 11:22] VITALS: BP 93/44
[2018-12-05 15:40] VITALS: BP 111/43
--- NOTE | 2018-12-05 17:13 | MORECARE ---
CASE MANAGEMENT DISCHARGE SUMMARY PATIENT: SAUL MCNALLY UNIT: [id number] ADM DATE: 12/02/18 AGE: 43 : [birth year] SEX: F ROOM/BED: D.2139 AUTHOR: DARRIN STEVE PHYSICIAN: REFERRING PHYSICIAN: HU GAGNON MD DATE OF SERVICE: 12/05/18 Discharge Plan Patient Name: SAUL MCNALLY Facility: [facility]:[place] : 1975 Planned Disposition: Nursing Facility [facility] Anticipated Discharge Date: Discharge Date: Expected LOS: Initial Reviewer: [email or web address] Initial Review Date: 12/06/2018 Generated: 12/05/18 6:13 pm Patient Name: SAUL MCNALLY Page [phone] at 1713 All edits/amendments must be made on the electronic document DICTATION DATE: 12/05/181711 IMPLEMENTATION LEAD: LENORE 12/05/181711 RPT#: [id number] DC DATE: STATUS: ADM IN [facility] [address] [place] [address] END OF REPORT
--- NOTE | 2018-12-05 17:23 | MORECARE ---
CASE MANAGEMENT DISCHARGE SUMMARY PATIENT: SAUL MCNALLY UNIT: [id number] ADM DATE: 12/02/18 AGE: 43 : 76 SEX: F ROOM/BED: D.9856 AUTHOR: DARRIN STEVE PHYSICIAN: REFERRING PHYSICIAN: HU ALBERT MD DATE OF SERVICE: 12/05/18 Discharge Plan Patient Name: SAUL MCNALLY Facility: [facility]:[place] : 1975 Planned Disposition: Nursing Facility [facility] Cert Anticipated Discharge Date: Discharge Date: Expected LOS: Initial Reviewer: [email or web address] Initial Review Date: 12/06/2018 Generated: 12/05/18 6:23 pm Comments DCP- Discharge Planning Updated by [email or web address]: Jared Kirk on 12/05/18 4:[address] Patient Name: SAUL MCNALLY Admission Status: ER Accout number: [id number] Admission Date: 12-02-2018 : 1975 Admission Diagnosis: Attending: Hu Albert Current LOS: 3 Anticipated DC Date: Planned Disposition: Nursing Facility [facility] Cert Primary Insurance: MEDICARE A & B PLANNED EXTERNAL PROVIDER: [facility], LONG TERM CARE MEDICAID BED Discharge Planning Comments: CM MET WITH PT IN ROOM TO DISCUSS DISCHARGE PLANNING AND NEEDS. PT REPORTS LIVING AT HOME DEPENDENTLY ON STAFF AT [facility] FOR ASSISTANCE WITH BATHING, MEDICATION MANAGEMENT AND TRANSFERS. PT REPORTS BEING UP TO WHEELCHAIR AT [facility]. PT GOES TO DIALYSIS AT [facility], TTS, 1115AM, [facility] VIA WHEELCHAIR. . PT DENIES DISCHARGE NEEDS, PLANS TO RETURN TO THE [facility] WHERE SHE LIVES. FOR DISCHARGE, FAX DISCHARGE INFORMATION TO [facility] AT [phone], CALL NURSE REPORT TO [facility] AT [phone]. [facility] TO PROVIDE VAN TRANSPORT. Freelance Art Director: Jared Kirk DCPIA - Discharge Planning Initial Assessment Updated by [email or web address]: Jared Kirk on 12/05/18 5:16 pm * Is the patient Alert and Oriented? Yes * How many steps to enter\exit or inside your home? NONE * PCP DR. GARCIA * Pharmacy [facility] [place] * Preadmission Environment [facility] * Facility Name [facility] * ADLs Partial Dependent * Partial ADLs (Assistance needed) Bathing Medication Management Transfers * Equipment Wheelchair * Other Equipment ALL MEDICAL EQUIPMENT PROVIDED BY FACILITY * List name and contact numbers for known caregivers / representatives who currently or will assist patient after discharge: PREM GUSTAFSON, BROTHER, * Verbal permission to speak to the caregivers and representatives has been obtained from the patient. Yes * Community resources currently utilized Other * Please name any agencies selected above. OUTPATIENT DIALYSIS, [facility], [facility], 1115, [facility] TRANSPORT * Can the patient safely return to the preadmission environment? Yes * Has this patient been hospitalized within the prior 30 days at any hospital? No Last DP export: 12/05/18 4:13 pm Patient Name: SAUL MCNALLY Page [phone] at 1723 All edits/amendments must be made on the electronic document DICTATION DATE: 12/05/181722 CHIEF ENGINEER WATERWORKS: LENORE 12/05/181722 RPT#: [id number] DC DATE: STATUS: ADM IN [facility] [address] [place] [address] END OF REPORT
--- NOTE | 2018-12-05 18:26 | NUR ---
PT LYING SEMI FOWLERS. CALL LIGHT W/I REACH. RR EVEN AND UNLABORED ON RA. NS INFUSING @KVO VIA L.IJ CVL. PT DENIES ANY NEEDS. WILL PASS REPORT AND CONTINUE WITH POC.
--- NOTE | 2018-12-05 19:15 | NUR ---
AT REST WITH EYS CLOSED SKIN WARM AND DRY LCTA BUT DEMINISHED LOWER BASESBED LOW AND CALL LIGHT IN REACH SRX2....LEFT IJ WITH DRSG IN PLACE...FLUIDS AT K[facility]
[2018-12-05 21:07] VITALS: BP 120/38
[2018-12-06 01:12] VITALS: BP 108/27
--- NOTE | 2018-12-06 03:29 | NUR ---
RESTING ON SIDE SRX2 BED LOW AND CALL LIGHT IS IN REACH.
--- NOTE | 2018-12-06 04:37 | NUR ---
BLOOD DRAW PERFORMED BY SUBCLAVEN PORT
[2018-12-06 06:11] VITALS: BP 116/53
[2018-12-06 06:42] LABS: HEMATOCRIT 26.4 % (36.0-48.0); HEMOGLOBIN 8.9 g/dL (12-16); LYMPHOCYTES 33.5 % (15-50); MCH 34.2 pg (26.0-34.0); MCHC 33.7 g/dL (31.0-37.0); MCV 101.5 fL (80.0-100.0); MEAN PLATELET VOLUME 9.6 fL (7.4-10.4); NEUTROPHILS 51.5 % (40-80); PLATELET COUNT 229 10x3/uL (130-400); RDW 14.8 % (11.5-14.5); WBC 5.7 10x3/uL (4.8-10.8)
[2018-12-06 07:09] LABS: ANION GAP 20.7 mmol/L (8-16); CALCIUM 7.5 mg/dL (8.5-10.1); CARBON DIOXIDE 24.8 mmol/L (21.0-32.0); PHOSPHOROUS 6.2 mg/dL (2.5-4.9); POTASSIUM - SERUM 3.5 mmol/L (3.5-5.1)
[2018-12-06 07:14] LABS: CREATININE - SERUM 9.7 mg/dL (0.6-1.3)
[2018-12-06 07:49] VITALS: BP 151/50
--- NOTE | 2018-12-06 08:18 | NUR ---
PT ALERT X 4, UNABLE TO RECALL THE NUMBER OF YEAR BUT CAN TELL ME IT IS ON THE PT INFORMATION BOARD. BREATH SOUNDS DIMINISHED TO LOWER LOBES. TELEMETRY IN PLACE. LEFT IJ IN PLACE, PATENT, DRESSING CLEAN DRY AND INTACT. TRACE EDEMA TO LOWER EXTREMITIES. DRESSING TO LEFT UPPER ARM, CLEAN DRY AND INTACT. REPORTING PAIN OF 7/10, GOING TO DIALYSIS, WILL MONITOR PAIN AND MEDICATE WHEN PT RETURNS IF NEEDED. BED LOW, CALL LIGHT IN REACH, NO OTHER NEEDS AT THIS TIME.
--- NOTE | 2018-12-06 13:02 | NUR ---
PT RECIEVED FROM DIALYSIS, VSS. LUNCH IN ROOM, NO OTHER NEEDS AT THIS TIME.
[2018-12-06 15:54] VITALS: BP 130/62
--- NOTE | 2018-12-06 15:56 | MORECARE ---
CASE MANAGEMENT DISCHARGE SUMMARY PATIENT: SAUL MCNALLY UNIT: [id number] ADM DATE: 12/02/18 AGE: 43 : [birth year] SEX: F ROOM/BED: D.3269 AUTHOR: DARRIN STEVE PHYSICIAN: REFERRING PHYSICIAN: HU ALBERT MD DATE OF SERVICE: 12/06/18 Discharge Plan Patient Name: SAUL MCNALLY Facility: [facility]:[place] : 1975 Planned Disposition: Nursing Facility [facility] Cert Anticipated Discharge Date: Discharge Date: Expected LOS: Initial Reviewer: [email or web address] Initial Review Date: 12/06/2018 Generated: 12/06/18 4:56 pm Comments DCP- Discharge Planning Updated by [email or web address]: Jared Kirk on 12/06/18 2:[address] Patient Name: SAUL MCNALLY Encounter No: [id number] : 1975 Primary Insurance: MEDICARE A & B Anticipated DC Date: Planned Disposition: Nursing Facility [facility] Cert External Planned Provider: NIECY AGUAYO, LONG TERM CARE MEDICAID BED Discharge Planning Comments: CM CALLED [facility], , LEFT MESSAGE FOR [employer] SIDING MECHANICIQRA, NOTIFYING THAT CM WAS SENDING HOSPITAL UPDATE. CM ASKED TO SEND TO NURSE DEVENDRA. CM FAXED UPDATE TO DEVENDRA AT [facility] AT [phone]. FOR DISCHARGE, FAX DISCHARGE INFORMATION TO [facility] AT [phone], CALL NURSE REPORT TO [facility] AT [phone]. [facility] TO PROVIDE VAN TRANSPORT. Sale Professional Digital Marketing: Jared Kirk DCP- Discharge Planning Updated by [email or web address]: Jared Kirk on 12/05/18 4:[address] Patient Name: SAUL MCNALLY Admission Status: ER Accout number: [id number] Admission Date: 12-02-2018 : 1975 Admission Diagnosis: Attending: Hu Albert Current LOS: 3 Anticipated DC Date: Planned Disposition: Nursing Facility [facility] Cert Primary Insurance: MEDICARE A & B PLANNED EXTERNAL PROVIDER: NIECY MANOR, ANHYDROUS AMMONIA PRODUCTION SUPERVISOR CARE MEDICAID BED Discharge Planning Comments: CM MET WITH PT IN ROOM TO DISCUSS DISCHARGE PLANNING AND NEEDS. PT REPORTS LIVING AT HOME DEPENDENTLY ON STAFF AT [facility] FOR ASSISTANCE WITH BATHING, MEDICATION MANAGEMENT AND TRANSFERS. PT REPORTS BEING UP TO WHEELCHAIR AT CUSTODIAL. PT GOES TO DIALYSIS AT [facility], T[place], 1115AM, CUSTODIAL TRANSPORT VIA WHEELCHAIR. . PT DENIES DISCHARGE NEEDS, PLANS TO RETURN TO THE [facility] WHERE SHE LIVES. FOR DISCHARGE, FAX DISCHARGE INFORMATION TO [facility] AT [phone], CALL NURSE REPORT TO [facility] AT [phone]. [facility] TO PROVIDE VAN TRANSPORT. Sale Professional Digital Marketing: Jared Kirk DCPIA - Discharge Planning Initial Assessment Updated by [email or web address]: Jared Kirk on 12/05/18 5:16 pm * Is the patient Alert and Oriented? Yes * How many steps to enter\exit or inside your home? NONE * PCP DR. GARCIA * Pharmacy [facility] [place] * Preadmission Environment [facility] * Facility Name [facility] * ADLs Partial Dependent * Partial ADLs (Assistance needed) Bathing Medication Management Transfers * Equipment Wheelchair * Other Equipment ALL MEDICAL EQUIPMENT PROVIDED BY FACILITY * List name and contact numbers for known caregivers / representatives who currently or will assist patient after discharge: PREM GUSTAFSON, BROTHER, * Verbal permission to speak to the caregivers and representatives has been obtained from the patient. Yes * Community resources currently utilized Other * Please name any agencies selected above. OUTPATIENT DIALYSIS, [facility], [facility], 1115, CUSTODIAL TRANSPORT * Can the patient safely return to the preadmission environment? Yes * Has this patient been hospitalized within the prior 30 days at any hospital? No External Providers External Provider: [facility] Next Contact Date: 12/07/2018 Service Request Date: Service Type: Resolution: Reviewer: Comments: Last DP export: 12/05/18 4:23 pm Patient Name: SAUL MCNALLY Page [phone] at 2490 All edits/amendments must be made on the electronic document DICTATION DATE: 12/06/18 4850 BUSINESS SUPPORT: LENORE 12/06/18 5276 RPT#: [id number] DC DATE: STATUS: ADM IN [facility] [address] [place] [address] END OF REPORT
[2018-12-06 20:00] VITALS: BP 115/60; BP 89/33
--- NOTE | 2018-12-06 20:30 | NUR ---
THE PATIENT APPEARED TO BE SLEEPING, BUT WOKE UP WHEN STAFF ENTERED HER ROOM. BED IN [facility] WITH CALL LIGHT WITHIN REACH AND SIDERAILS X2. PATIENT EDUCATED ON USE OF A CALL LIGHT AND DEMONSTRATED UNDERSTANDING VIA TEACHBACK METHOD. THE PATIENT HAS NO QUESTIONS OR CONCERNS AT THIS TIME.
[2018-12-07] VITALS: BP 88/37
--- NOTE | 2018-12-07 02:47 | NUR ---
THE PATIENT APPEARS TO BE SLEEPING. BED IN LOW POSITION WITH SIDERAILS X2 AND CALL LIGHT WITHIN REACH.
[2018-12-07 04:00] VITALS: BP 130/89
--- NOTE | 2018-12-07 07:00 | NUR ---
RESTING QUIETLY IN BEDS, EYES CLOSED, AROUSES TO VERBAL STIMULI, DENIES PAIN OR NEEDS. CALL LIGHT AT HAND, INSTRUCTED TO CALL WITH NEEDS.
[2018-12-07 07:47] LABS: BASOPHILS 0.9 % (0-2); EOSINOPHILS 4.5 % (0-7); HEMATOCRIT 30.1 % (36.0-48.0); HEMOGLOBIN 9.8 g/dL (12-16); IMMATURE GRANULOCYTES 0.3 % (0-5); LYMPHOCYTES 36.3 % (15-50); MCH 33.6 pg (26.0-34.0); MCHC 32.6 g/dL (31.0-37.0); MCV 103.1 fL (80.0-100.0); MEAN PLATELET VOLUME 10.4 fL (7.4-10.4); MONOCYTES 9.8 % (2-11); NEUTROPHILS 48.2 % (40-80); PLATELET COUNT 266 10x3/uL (130-400); RBC 2.92 10x6/uL (4.00-5.40); WBC 5.8 10x3/uL (4.8-10.8)
[2018-12-07 07:52] VITALS: BP 134/46
[2018-12-07 08:28] LABS: ANION GAP 18.3 mmol/L (8-16); CARBON DIOXIDE 26.5 mmol/L (21.0-32.0); CREATININE - SERUM 8.2 mg/dL (0.6-1.3); PHOSPHOROUS 5.7 mg/dL (2.5-4.9); POTASSIUM - SERUM 3.8 mmol/L (3.5-5.1); VANCOMYCIN - RANDOM 24.3 ug/mL (10.0-20.0)
[2018-12-07 14:01] VITALS: BP 124/56
--- NOTE | 2018-12-07 14:47 | NUR ---
Nutrition follow-up: Diet: Renal PO intake 100% of most meals Labs reviewed Wt: 225# +BM RDN following.
[2018-12-07 20:00] VITALS: BP 116/38
--- NOTE | 2018-12-07 23:12 | NUR ---
PT LAYING IN BED RESTING. PT DENIES PAIN AT THIS TIME. HEART RATE LOW, AMIORORONE HELD. TOOK MEDICATIONS WITHOUT DIFFICULTY. PT INCONTINENT OF BOWEL AND BLADDER. CONTINOUS HEAT APPLIED TO L ARM. L ARM SWOLLEN AND RED. DRSG C/D/I TO L ARM. L SUBCLAVIAN WITH NS @ KVO. R CHEST HEMOSPLIT SL. ROOM AIR. NO FURTHER CONCERNS AT THIS TIME. BED LOWERED AND LOCKED. CL IN REACH. CPOC
[2018-12-08] VITALS: BP 118/37
[2018-12-08 04:00] VITALS: BP 149/63
[2018-12-08 05:39] LABS: BASOPHILS 0.6 % (0-2); EOSINOPHILS 4.6 % (0-7); HEMATOCRIT 27.3 % (36.0-48.0); IMMATURE GRANULOCYTES 0.2 % (0-5); LYMPHOCYTES 27.7 % (15-50); MCH 33.5 pg (26.0-34.0); MCV 101.5 fL (80.0-100.0); MEAN PLATELET VOLUME 10.1 fL (7.4-10.4); MONOCYTES 12.3 % (2-11); NEUTROPHILS 54.6 % (40-80); PLATELET COUNT 283 10x3/uL (130-400); RBC 2.69 10x6/uL (4.00-5.40); WBC 6.3 10x3/uL (4.8-10.8)
[2018-12-08 06:13] LABS: ANION GAP 21.8 mmol/L (8-16); CALCIUM 7.7 mg/dL (8.5-10.1); CARBON DIOXIDE 23.9 mmol/L (21.0-32.0); CREATININE - SERUM 9.9 mg/dL (0.6-1.3); PHOSPHOROUS 6.5 mg/dL (2.5-4.9); POTASSIUM - SERUM 3.7 mmol/L (3.5-5.1); VANCOMYCIN - RANDOM 26.7 ug/mL (10.0-20.0)
--- NOTE | 2018-12-08 07:30 | NUR ---
RECEIVED A/A/OX4. DENIES ANY NEED FOR PAIN MEDS, LEFT ARM VERY RED AND SWOLLEN WITH DRESSING IN PLACE OVER DEBORAH. WARM PACKS ON ARM CONTINUOUS. IV OF NS AT KVO RATE TO LEFT SUBCLAVIAN TL. HEMOSPLIT IN PLACE RIGHT CHEST WITH DRESSING C/D/I. BED IN LOW POSITION WITH SIDERAILS UP X 2 AND CALL LIGHT IN REACH. ASSESSMENT COMPLETED.
[2018-12-08 08:33] VITALS: BP 142/79
--- NOTE | 2018-12-08 10:00 | NUR ---
TO DIALYSIS PER BED.
--- NOTE | 2018-12-08 14:03 | NUR ---
RETURNED TO ROOM VIA BED FROM DIALYSIS
--- NOTE | 2018-12-08 14:13 | NUR ---
[employer] SPORTS COACH NOTE: PT SITTING UP IN BED EATING LUNCH. JUST RETURNED FROM DIALYSIS. NO S/S OF ACUTE DISTRESS. CL IN PLACE.
[2018-12-08 16:23] VITALS: BP 125/43
[2018-12-08 21:33] VITALS: BP 106/41
--- NOTE | 2018-12-08 21:43 | NUR ---
PT SITTING UP IN BED RESTING. ALERT AND ORIENTED X 4. VITALS STABLE. TOOK MEDS WITHOUT DIFFICULTY. R CHEST HEMESPLIT, DRSG C/D/I. L SUBCLAVIAN WITH NS @ KVO. ROOM AIR. INCONTINENT OF B & B. L AV FISTULA, RED/SWOLLEN, DEBORAH NOTED INTACT AND OPEN TO AIR. CONTINOUS HOT PACK APPLIED. SLIGHT FOOD DROP NOTED TO ÓSCAR FEET. DENIES PAIN AT THIS TIME. SLIGHT REDNESS NOTED TO BOTTOM, BLANCHABLE. REQUESTED CRACKERS AND ORANGE JUICE. BED LOWERED AND LOCKED. CL IN REACH. CPOC.
[2018-12-09 02:08] VITALS: BP 132/46
--- NOTE | 2018-12-09 04:10 | NUR ---
PT RESTING IN BED WITH RESPS EVEN/NONLABORED. NO DISTRESS. MONITOR AND CPOC.
[2018-12-09 04:54] VITALS: BP 140/56
--- NOTE | 2018-12-09 07:30 | NUR ---
RECEIVED A/A/OX4, SITTING UP IN BED WATCHING TV. DENIES ANY PAIN OR DISCOMFORT AND NO REQUESTS VOICED. RIGHT CHEST HEMISPLIT PATENT WITH DRESSING IN PLACE, C/D/I. TRIALYSIS PER LEFT IJ PATENT WITH DRESSING C/D/I. SUTURES IN PLACE LEFT UPPER ARM WITHOUT DRAINAGE BUT REMAINS RED AND SWOLLEN. BED IN LOW POSITION, SIDERAILS UP X 2 AND CALL LIGHT IN REACH. ASSESSMENT COMPLETED.
[2018-12-09 08:32] VITALS: BP 129/29
[2018-12-09 12:21] VITALS: BP 155/71
--- NOTE | 2018-12-09 12:25 | NUR ---
RN ROUNDING DONE WITH PATIENT SITTING IN CHAIR WITH YELLOW GOWN ON. ON ROOM AIR. LEFT SUBCLAVIAN SEEN WITH NS INFUSING AT 10 CC/HR. RIGHT CHEST HEMISPLIT SEEN WITH C/D/I DRESSING. DENIES ANY NEEDS AT THIS TIME.
--- NOTE | 2018-12-09 14:35 | NUR ---
RESTING QUIETLY IN BED. SAT UP IN BEDSIDE CHAIR FOR LUNCH AND TOLERATED WELL. NO REQUESTS VOICE AT PRESENT TIME.
[2018-12-09 16:31] VITALS: BP 106/47
--- NOTE | 2018-12-09 19:15 | NUR ---
ALERT/AWAKE WATCHING TV. L IJ TRIALYSIS C/D/I. LEFT UA FISTULA DEBORAH INTACT. STRONG THRILL FELT. REQUESTED HER HOT PACK REHEATED. ARM ELEVATED ON PILLOW. RT CHEST HEMESPLIT DRSG C/D/I. NO OTHER NEEDS VOICED. HAS CALL LIGHT IN REACH.
[2018-12-09 21:00] VITALS: BP 93/38
--- NOTE | 2018-12-09 21:33 | NUR ---
TOOK SCHED MEDS WITH SIPS OF WATER. VS TEMP SHOWED 99 DEGREES F. ROOM IS VERY HOT. TURNED TEMP DOWN FROM 90 TO 75.
--- NOTE | 2018-12-09 23:30 | NUR ---
PERIANESTHESIA RN CLEANING FOR INCONTINENCE OF STOOL. CONSISTING OF LG AMT OF DK BROWN LIQUID AND SOLID STOOL.
[2018-12-10] VITALS (7 sets, daily range): BP systolic 117–153; BP diastolic 45–86
--- NOTE | 2018-12-10 01:46 | NUR ---
FUDGER'S GIVING A BATH.
--- NOTE | 2018-12-10 08:07 | NUR ---
PATIENT IS ALERT/ORIENT. CALL LIGHT WITHIN REACH. VOICES NO NEEDS AT THIS TIME. WILL CONTINUE WITH PLAN OF CARE
--- NOTE | 2018-12-10 10:07 | NUR ---
IV PATENT. CALL LIGHT IN REACH. WILL CONT. PLAN OF CARE.
--- NOTE | 2018-12-10 12:25 | NUR ---
PATIENT RESTING WELL. TOTAL ASST WITH CARE.
--- NOTE | 2018-12-10 15:55 | NUR ---
WOUND NURSE DOING TREATMENT TO LEFT UNDER ARM AND UPPER ARM ABSCESS, OLD FISTULA SITE
--- NOTE | 2018-12-10 16:19 | NUR ---
LEFT AXILLARY INCISION WITH DEBORAH INTACT WITHOUT DRAINAGE OR ODOR. CLEANSED AND NEW DRESSING APPLIED. LEFT UPPER ARM INCISION INTACT. CLEANSED AND DRESSING APPLIED.
--- NOTE | 2018-12-10 16:51 | NUR ---
PATIENT LYING IN BED, RESTING, WATCHING TV. CALL LIGHT WITHIN REACH. VOICES NO NEEDS AT THIS TIME.
--- NOTE | 2018-12-10 20:15 | NUR ---
PT IS RESTING IN BED WITH EYES OPEN. ALERT TO SELF AND ROOM. PT IS NOT VERY TALKATIVE BUT SMILES AND ANSWERS YES AND NO QUESTIONS APPROPRIATELY. LEFT NECK JUGULAR IV NOTED. INFUSING WITHOUT DIFFICULTY. DRESSING IS CDI. SR'S ARE UP X 3 IN BED. CALL LIGHT AND BEDSIDE TABLE ARE WITHIN EASY REACH.
--- NOTE | 2018-12-10 23:50 | NUR ---
PT IS RESTING QUIETLY IN BED WITH EYES CLOSED. RESPS ARE EVEN AND UNLABORED. NO ACUTE DISTRESS NOTED.
--- NOTE | 2018-12-11 01:21 | NUR ---
RESTING IN BED WITH EYES CLOSED.
--- NOTE | 2018-12-11 03:22 | NUR ---
LYING IN BED, RESPIRATIONS EVEN AND UNLABORED. CALL LIGHT IN REACH, WILL CONTINUE WITH PLAN OF CARE.
[2018-12-11 03:55] VITALS: BP 129/32
--- NOTE | 2018-12-11 05:42 | NUR ---
PT RESTING IN BED WITH EYES OPEN. PT FLICKERED EYE LIDS WHEN SPOKEN TO , BUT DID NOT OPEN THEM.
[2018-12-11 08:39] VITALS: BP 122/42
--- NOTE | 2018-12-11 09:24 | NUR ---
ALERT AND ORIENTED. RESTING IN BED. NO DISTRESS NOTED. NO C/O PAIN.
--- NOTE | 2018-12-11 09:29 | NUR ---
CALLED EARILER TO PHARMACY FOR PROCRIT. WILL CALL AGAIN. NON AVAILABLE AT THIS TIME.
--- NOTE | 2018-12-11 10:14 | NUR ---
GONE TO DIALYSIS AT THIS TIME.
--- NOTE | 2018-12-11 13:33 | NUR ---
NO CHANGE IN ASSESSMENT. EVERY OTHER STAPLE DC'D FROM TWO INCISIONS L ARM PER ORDER AFTER CLEANSING AREA WITH HIBECLENS.
--- NOTE | 2018-12-11 15:21 | NUR ---
NO CHANGE IN ASSESSMENT. RESP EVEN AND UNLABORED. NO DISTRESS NOTED. RESTING WITH EYES CLOSED.
[2018-12-11 17:04] VITALS: BP 115/54
[2018-12-11 19:00] VITALS: BP 116/47
--- NOTE | 2018-12-11 19:30 | NUR ---
INITIAL ROUNDS COMPLETED - PT ALERT BUT DISORIENTED TO PERSON. SEEMS LETHARGIC AND SLOW TO UNDERSTAND. L ARM INCISION HEALING PROPERLY AND WNL. DRESSING C/D/I. L NECK CENTRAL LINE, DRESSING C/D/I. L C HEMOSPLIT, C/D/I. PT GIVEN OLGA CRACKERS AND ORANGE JUICE PER REQUEST. DENIES BATHROOM NEEDS AT THIS TIME. WILL CONTINUE TO OBSERVE AND FOLLOW POC. CL IN REACH, SR UP X2, BED I LOW POSITION.
[2018-12-12] VITALS: BP 113/62
--- NOTE | 2018-12-12 03:35 | NUR ---
PT RESTING QUIETLY IN BED WITH EYES CLOSED. NO S/S OF DISTRESS, RR EVEN AND UL. NO NEEDS NOTED AT THIS TIME. WILL CONTINUE TO OBSERVE. CL IN REACH, SR UP X2, BED IN LOW POSITION.
[2018-12-12 04:00] VITALS: BP 103/58
--- NOTE | 2018-12-12 04:11 | NUR ---
TURNED PT TO SIDE TO OBTAIN BLOOD FROM CVL. PT SOILED WITH LARGE, LOOSE BM. CLEANED AND CHANGED LINENS. APLLIED BUTT CREAM, BUTTOCKS APPEARS RED. EDUCATED PT THAT SHE NEEDS TO CALL WHEN SHE HAS AN INCONTINENT EPISODE SO THAT WE CAN HELP CLEAN HER. PT NODDED TO VERBALIZE UNDERSTANDING. NO FURTHER NEEDS AT THIS TIME. WILL CONTINUE TO OBSERVE. CL IN REACH, SR UP X2, BED IN LOW POSITION. REPOSITIONED COMFORTABLY IN BED.
[2018-12-12 05:18] LABS: ANION GAP 18.9 mmol/L (8-16); CALCIUM 7.3 mg/dL (8.5-10.1); CREATININE - SERUM 13.7 mg/dL (0.6-1.3); POTASSIUM - SERUM 3.9 mmol/L (3.5-5.1)
[2018-12-12 05:30] LABS: HEMATOCRIT 27.4 % (36.0-48.0); HEMOGLOBIN 8.9 g/dL (12-16); MCH 33.1 pg (26.0-34.0); MCHC 32.5 g/dL (31.0-37.0); MCV 101.9 fL (80.0-100.0); MEAN PLATELET VOLUME 9.9 fL (7.4-10.4); PLATELET COUNT 346 10x3/uL (130-400); RBC 2.69 10x6/uL (4.00-5.40); RDW 15.5 % (11.5-14.5); WBC 8.9 10x3/uL (4.8-10.8)
[2018-12-12 05:31] LABS: EOSINOPHILS 4.2 % (0-7); IMMATURE GRANULOCYTES 0.1 % (0-5); LYMPHOCYTES 22.7 % (15-50); NEUTROPHILS 64.2 % (40-80)
--- NOTE | 2018-12-12 07:56 | NUR ---
PT LYING IN BED. CL IN REACH. PT DENIES NEEDS OR PAIN. BED IN LOW POSITION. WILL CONTINUE TO MONITOR.
[2018-12-12 08:08] VITALS: BP 141/51
--- NOTE | 2018-12-12 08:30 | NUR ---
PT IN DIALYSIS
--- NOTE | 2018-12-12 10:44 | NUR ---
IN DIALYSIS AT THIS TIME. WILL CONT. PLAN OF CARE.
--- NOTE | 2018-12-12 11:49 | NUR ---
PT BACK IN ROOM FROM DIALYSIS. CL IN REACH.
--- NOTE | 2018-12-12 13:25 | NUR ---
PT LYING IN BED. CL IN REACH. PT DENIES NEEDS OR PAIN. BED IN LOW POSITION. SIDE RAILS X2. WCTM
--- NOTE | 2018-12-12 13:44 | NUR ---
Nutrition follow-up: Diet: Renal PO intake 100% of some meals Labs reviewed Wt: 226# +BM PO intake has been good; hoever, po intake seems to have decreased over the last few days due to wound issues. Will continue to honor food preferences within diet restrictions. RDN following.
[2018-12-12 15:37] VITALS: BP 131/58
--- NOTE | 2018-12-12 17:45 | NUR ---
PT LYING IN BED. CL IN REACH. PT DENIES NEEDS OR PAIN.
--- NOTE | 2018-12-12 19:50 | NUR ---
INITIAL ROUNDS COMPLETED - PT SEEMS MORE ALERT THAN SHE DID YESTERDAY BEFORE DIALYSIS. STILL SEEMS SLIGHTLY CONFUSED AND DISORIENTED TO PERSON. DENIES NEEDS AT THIS TIME, NO PAIN OR DISCOMFORT NOTED. DENIES BATHROOM NEEDS. WCTM AND FOLLOW POC. SR UP X2, CL IN REACH, BED IN LOW POSITION.
[2018-12-12 21:09] VITALS: BP 139/35
[2018-12-13] VITALS: BP 107/40
[2018-12-13 04:00] VITALS: BP 110/51
--- NOTE | 2018-12-13 04:52 | NUR ---
TO ROOM FOR BLOOD DRAW AND CVL DRESSING CHANGE. PT SLEEPING IN BED, RR EVEN AND UL. NO S/S OF DISTRESS. CVL PATENT AND BLOOD RETURN GOOD. BLOOD COLLECTED AND SENT TO LAB. CVL DRESSING CHANGE COMPLETED, INITIALED AND DATED. SLIGHT SKIN IRRITATION AROUND CVL DRESSING, BUT APPLIED SKIN PREP PRIOR TO APPLYING DRESSING. DENIES FURTHER NEEDS, NOW RESTING QUIETLY IN BED. CL IN REACH, SR UP X2, BED IN LOWEST POSITION.
[2018-12-13 06:41] LABS: ANION GAP 18.6 mmol/L (8-16); CALCIUM 8.3 mg/dL (8.5-10.1); CARBON DIOXIDE 25.7 mmol/L (21.0-32.0); CREATININE - SERUM 9.7 mg/dL (0.6-1.3); POTASSIUM - SERUM 3.3 mmol/L (3.5-5.1)
[2018-12-13 06:59] LABS: BASOPHILS 0.8 % (0-2); EOSINOPHILS 4.4 % (0-7); HEMATOCRIT 27.5 % (36.0-48.0); HEMOGLOBIN 8.8 g/dL (12-16); LYMPHOCYTES 34.2 % (15-50); MCH 33.2 pg (26.0-34.0); MCV 103.8 fL (80.0-100.0); MEAN PLATELET VOLUME 9.8 fL (7.4-10.4); MONOCYTES 9.7 % (2-11); NEUTROPHILS 50.9 % (40-80); PLATELET COUNT 318 10x3/uL (130-400); RBC 2.65 10x6/uL (4.00-5.40); RDW 15.7 % (11.5-14.5); WBC 7.2 10x3/uL (4.8-10.8)
--- NOTE | 2018-12-13 07:30 | NUR ---
RESTING QUIETLY WITH EYES CLOSED. RESP EVEN,NONLABORED.
[2018-12-13 07:49] VITALS: BP 118/48
--- NOTE | 2018-12-13 09:00 | NUR ---
ASSESSMENT COMPLETE. REFUSING TO EAT BREAKFAST. STATES SHE'S SLEEPY AND WANTS TO REST. DENIES ANY NEEDS AT THIS TIME.
--- NOTE | 2018-12-13 09:21 | NUR ---
Incisions located on left axilla and left upper arm are healing well. Every other staple has been removed. There is no drainage, odor or redness noted. Pt is also able to raise her arm without pain/discomfort.
[2018-12-13 11:00] VITALS: BP 125/51
--- NOTE | 2018-12-13 12:00 | NUR ---
NO CHANGES NOTED AT THIS TIME.
--- NOTE | 2018-12-13 12:22 | MORECARE ---
CASE MANAGEMENT DISCHARGE SUMMARY PATIENT: SAUL MCNALLY UNIT: [id number] ADM DATE: 12/02/18 AGE: 43 : [birth year] SEX: F ROOM/BED: D.6829 AUTHOR: DARRIN STEVE PHYSICIAN: REFERRING PHYSICIAN: HU ALBERT MD DATE OF SERVICE: 12/13/18 Discharge Plan Patient Name: SAUL MCNALLY Facility: [facility]:[place] : 1975 Planned Disposition: Nursing Facility [facility] Cert Anticipated Discharge Date: 12/13/18 Discharge Date: Expected LOS: 11 Initial Reviewer: [email or web address] Initial Review Date: 12/06/2018 Generated: 12/13/18 1:22 pm Comments DCP- Discharge Planning Updated by [email or web address]: Jared Kirk on 12/06/18 2:[address] Patient Name: SAUL MCNALLY Encounter No: [id number] : 1975 Primary Insurance: MEDICARE A & B Anticipated DC Date: Planned Disposition: Nursing Facility [facility] Cert External Planned Provider: NIECY AGUAYO LONG TERM CARE MEDICAID BED Discharge Planning Comments: CM CALLED [facility], , LEFT MESSAGE FOR SOLDERING MACHINE OPERATORIQRA, NOTIFYING THAT WAS SENDING HOSPITAL UPDATE. CM ASKED TO SEND TO NURSE DEVENDRA. CM FAXED UPDATE TO DEVENDRA AT [facility] AT [phone]. FOR DISCHARGE, FAX DISCHARGE INFORMATION TO [facility] AT [phone], CALL NURSE REPORT TO [facility] AT [phone]. [facility] TO PROVIDE VAN TRANSPORT. Solar Energy Installation Manager: Jared Kirk DCP- Discharge Planning Updated by [email or web address]: Jared Kirk on 12/05/18 4:[address] Patient Name: SAUL MCNALLY Admission Status: ER Accout number: [id number] Admission Date: 12-02-2018 : 1975 Admission Diagnosis: Attending: Hu Albert Current LOS: 3 Anticipated DC Date: Planned Disposition: Nursing Facility [facility] Cert Primary Insurance: MEDICARE A & B PLANNED EXTERNAL PROVIDER: NIECY MANOR, CUSTOMS MANAGER CARE MEDICAID BED Discharge Planning Comments: CM MET WITH PT IN ROOM TO DISCUSS DISCHARGE PLANNING AND NEEDS. PT REPORTS LIVING AT HOME DEPENDENTLY ON STAFF AT [facility] FOR ASSISTANCE WITH BATHING, MEDICATION MANAGEMENT AND TRANSFERS. PT REPORTS BEING UP TO WHEELCHAIR AT [facility]UST[facility]. PT GOES TO DIALYSIS AT [facility], [place], 1115AM, CUSTODIAL TRANSPORT VIA WHEELCHAIR. . PT DENIES DISCHARGE NEEDS, PLANS TO RETURN TO THE [facility] WHERE SHE LIVES. FOR DISCHARGE, FAX DISCHARGE INFORMATION TO [facility] AT [phone], CALL NURSE REPORT TO [facility] AT [phone]. [facility] TO PROVIDE VAN TRANSPORT. Solar Energy Installation Manager: Jared Kirk DCPIA - Discharge Planning Initial Assessment Updated by BLAINE: Jared Kirk on 12/05/18 5:16 pm * Is the patient Alert and Oriented? Yes * How many steps to enter\exit or inside your home? NONE * PCP DR. GARCIA * Pharmacy [facility] [place] * Preadmission Environment [facility] * Facility Name [facility] * ADLs Partial Dependent * Partial ADLs (Assistance needed) Bathing Medication Management Transfers * Equipment Wheelchair * Other Equipment ALL MEDICAL EQUIPMENT PROVIDED BY FACILITY * List name and contact numbers for known caregivers / representatives who currently or will assist patient after discharge: PREM GUSTAFSON, BROTHER, * Verbal permission to speak to the caregivers and representatives has been obtained from the patient. Yes * Community resources currently utilized Other * Please name any agencies selected above. OUTPATIENT DIALYSIS, [facility], [place], 1115, CUSTODIAL TRANSPORT * Can the patient safely return to the preadmission environment? Yes * Has this patient been hospitalized within the prior 30 days at any hospital? No Coverage Notice Reviewer: [email or web address] - Jared Kirk Notice Issued Date-Time: 12/13/2018 12:15 Notice Type: IM Discharge Notice Notice Delivered To: Patient Relationship to Patient: Optics Engineer Name: Delivery Method: HAND - Hand Delivered Cleo Days: Prior Verbal Notification: Recipient Understood Notice: Yes Recipient Signature: Yes Med Rec Note Co-signed by Attending: Coverage Notice Comment: Last DP export: 12/06/18 2:56 p Patient Name: SAUL MCNALLY Page [phone] at 1222 All edits/amendments must be made on the electronic document DICTATION DATE: 12/13/181221 CONSULTING SERVICES PROJECT MANAGER: LENORE 12/13/182 RPT#: [id number] DC DATE: STATUS: ADM IN [facility] [address] [place] [address] END OF REPORT
--- NOTE | 2018-12-13 12:38 | MORECARE ---
CASE MANAGEMENT DISCHARGE SUMMARY PATIENT: SAUL MCNALLY UNIT: [id number] ADM DATE: 12/02/18 AGE: 43 : [birth year] SEX: F ROOM/BED: D.8272 AUTHOR: POWERDOC PHYSICIAN: REFERRING PHYSICIAN: HU ALBERT MD DATE OF SERVICE: 12/13/18 Discharge Plan Patient Name: SAUL MCNALLY Facility: [facility]:[place] : 1975 Planned Disposition: Nursing Facility [facility] Cert Anticipated Discharge Date: 12/13/18 Discharge Date: Expected LOS: 11 Initial Reviewer: [id number] Initial Review Date: 12/06/2018 Generated: 12/13/18 1:38 pm Comments DCP- Discharge Planning Updated by [id number]: Jared Kirk on 12/13/18 11:[address] Patient Name: SAUL MCNALLY Encounter No: [id number] : 1975 Primary Insurance: MEDICARE A & B Anticipated DC Date: 12-13-2018 Planned Disposition: Nursing Facility [facility] Cert External Planned Provider: NIECY AGUAYO LONG TERM CARE MEDICAID BED Discharge Planning Comments: CM SPOKE TO RENAL CISCO DARDEN WHO INFORMED CM THAT PT CAN DISCHARGE HOME TO [facility] TODAY. CM SPOKE TO PT IN ROOM WHO IS IN AGREEMENT WITH DISCHARGE HOME TODAY, INFORMED CM THAT THERE IS NO ONE TO CALL FOR HER AND THAT TO TELL THE [facility] TO BRING HER WHEELCHAIR. IMPORTANT MESSAGE FROM MEDICARE PROVIDED AND EXPLAINED. CM CALLED [facility], , LEFT MESSAGE FOR PUBLICITY CONSULTANT, IQRA, NOTIFYING THAT WAS SENDING HOSPITAL UPDATE WITH PLANNED DISCHARGE FOR TODAY. CM ASKED TO SEND TO NURSE DEVENDRA. CM FAXED UPDATE TO DEVENDRA AT [facility] AT [phone]. CM SPOKE TO FRONT COUNTER ATTENDANT WHO REPORTS THAT THEY DO NOT HAVE TRANSPORT AVAILABLE UNTIL TOMORROW MORNING AND WILL ASBESTOS REMOVAL WORKER PT FIRST THING IN THE MORNING. FOR DISCHARGE, [facility] AT [phone], CALL NURSE REPORT TO DEVENDRA AT [facility], . [facility] TO PROVIDE VAN TRANSPORT IN THE MORNING, 12-14-18. Production Posting Clerk: Jared Kirk DCP- Discharge Planning Updated by [id number]: Jared Kirk on 12/06/18 2:[address] Patient Name: SAUL MCNALLY Encounter No: [id number] : 1975 Primary Insurance: MEDICARE A & B Anticipated DC Date: Planned Disposition: Nursing Facility [facility] Cert External Planned Provider: NIECY MANNY, [facility] MEDICAID BED Discharge Planning Comments: CM CALLED [facility], , LEFT MESSAGE FOR PUBLICITY CONSULTANTIQRA, NOTIFYING THAT CM WAS SENDING HOSPITAL UPDATE. CM ASKED TO SEND TO NURSE DEVENDRA. CM FAXED UPDATE TO DEVENDRA AT [facility] AT [phone]. FOR DISCHARGE, FAX DISCHARGE INFORMATION TO [facility] AT [phone], CALL NURSE REPORT TO [facility] AT [phone]. [facility] TO PROVIDE VAN TRANSPORT. Production Posting Clerk: Jared Kirk NDP- Discharge Planning Updated by [id number]: Jared Kirk on 12/05/18 4:[address] Patient Name: SAUL MCNALLY Admission Status: ER Accout number: [id number] Admission Date: 12-02-2018 : 1975 Admission Diagnosis: Attending: Hu Albert Current LOS: 3 Anticipated DC Date: Planned Disposition: Nursing Facility [facility] Primary Insurance: MEDICARE A & B PLANNED EXTERNAL PROVIDER: NIECY [place], [facility] MEDICAID BED Discharge Planning Comments: CM MET WITH PT IN ROOM TO DISCUSS DISCHARGE PLANNING AND NEEDS. PT REPORTS LIVING AT HOME DEPENDENTLY ON STAFF AT [facility] FOR ASSISTANCE WITH BATHING, MEDICATION MANAGEMENT AND TRANSFERS. PT REPORTS BEING UP TO WHEELCHAIR AT [facility]. PT GOES TO DIALYSIS AT [facility], T[place], 1115AM, [facility] TRANSPORT VIA WHEELCHAIR. . PT DENIES DISCHARGE NEEDS, PLANS TO RETURN TO THE [facility] WHERE SHE LIVES. FOR DISCHARGE, FAX DISCHARGE INFORMATION TO [facility] AT [phone], CALL NURSE REPORT TO [facility] AT [phone]. [facility] TO PROVIDE VAN TRANSPORT. Production Posting Clerk: Jared Kirk DCPIA - Discharge Planning Initial Assessment Updated by [id number]: Jared Kirk on 12/05/18 5:16 pm * Is the patient Alert and Oriented? Yes * How many steps to enter\exit or inside your home? NONE * PCP DR. GARCIA * Pharmacy [facility] [place] * Preadmission Environment Secured Entrance Monitor Senior Living * Facility Name [facility] * ADLs Partial Dependent * Partial ADLs (Assistance needed) Bathing Medication Management Transfers * Equipment Wheelchair * Other Equipment ALL MEDICAL EQUIPMENT PROVIDED BY FACILITY * List name and contact numbers for known caregivers / representatives who currently or will assist patient after discharge: BROTHER JUSTICE, * Verbal permission to speak to the caregivers and representatives has been obtained from the patient. Yes * Community resources currently utilized Other * Please name any agencies selected above. OUTPATIENT DIALYSIS, [facility], [facility], 1115, [facility]SP[facility] * Can the patient safely return to the preadmission environment? Yes * Has this patient been hospitalized within the prior 30 days at any hospital? No Coverage Notice Reviewer: [id number] - Jared Kirk Notice Issued Date-Time: 12/13/2018 12:15 Notice Type: IM Discharge Notice Notice Delivered To: Patient Relationship to Patient: Actimize Architect Name: Delivery Method: HAND - Hand Delivered Cleo Days: Prior Verbal Notification: Recipient Understood Notice: Yes Recipient Signature: Yes Med Rec Note Co-signed by Attending: Coverage Notice Comment: Last DP export: 12/13/18 11:22 a Patient Name: SAUL MCNALLY Page [id number] at 1238 All edits/amendments must be made on the electronic document DICTATION DATE: 12/13/18 1237 MALWARE ANALYST: LENORE 12/13/18 1237 RPT#: [id number] DC DATE: STATUS: ADM IN [facility] [address] [place] [address] END OF REPORT
--- NOTE | 2018-12-13 12:46 | MORECARE ---
CASE MANAGEMENT DISCHARGE SUMMARY PATIENT: SAUL MCNALLY UNIT: [id number] ADM DATE: 12/02/18 AGE: 43 : [birth year] SEX: F ROOM/BED: D.2167 AUTHOR: POWERDOC PHYSICIAN: REFERRING PHYSICIAN: HU ALBERT MD DATE OF SERVICE: 12/13/18 Discharge Plan Patient Name: SAUL MCNALLY Facility: [facility]:[place] : 1975 Planned Disposition: Nursing Facility [facility] Cert Anticipated Discharge Date: 12/13/18 Discharge Date: Expected LOS: 11 Initial Reviewer: [id number] Initial Review Date: 12/06/2018 Generated: 12/13/18 1:46 pm Comments DCP- Discharge Planning Updated by [email or web address]: Jared Kirk on 12/13/18 11:[address] Patient Name: SAUL MCNALLY Encounter No: [id number] : 1975 Primary Insurance: MEDICARE A & B Anticipated DC Date: 12-13-2018 Planned Disposition: Nursing Facility [facility] Cert External Planned Provider: NIECY AGUAYO, PERSONAL [employer]ARE [employer] CARE MEDICAID BED Discharge Planning Comments: EVITA SPOKE TO RENAL CISCO DARDEN WHO INFORMED CM THAT PT CAN DISCHARGE HOME TO [facility] TODAY. CM SPOKE TO PT IN ROOM WHO IS IN AGREEMENT WITH DISCHARGE HOME TODAY, INFORMED CM THAT THERE IS NO ONE TO CALL FOR HER AND THAT TO TELL THE [facility] TO BRING HER WHEELCHAIR. IMPORTANT MESSAGE FROM MEDICARE PROVIDED AND EXPLAINED. CM CALLED [facility], , LEFT MESSAGE FOR BOX PULLER, IQRA, NOTIFYING THAT WAS SENDING HOSPITAL UPDATE WITH PLANNED DISCHARGE FOR TODAY. CM ASKED TO SEND TO NURSE DEVENDRA. CM FAXED UPDATE TO DEVENDRA AT [facility] AT [phone]. CM SPOKE TO PATTERN GENERATOR OPERATOR WHO REPORTS THAT THEY DO NOT HAVE TRANSPORT AVAILABLE UNTIL TOMORROW MORNING AND WILL URBAN RENEWAL MANAGER PT FIRST THING IN THE MORNING. CM NOTIFIED CISCO DARDEN, LOADER HELPER NURSE AND PATIENT. PT WILL NEED URBAN RENEWAL MANAGER FIRST THING SHE HAS DIALYSIS TOMORROW, 12-14-18 AT 1100 OUTPATIENT. FOR DISCHARGE, FAX DISCHARGE INFORMATION TO [facility] AT [phone], CALL NURSE REPORT TO DEVENDRA AT [facility], . [facility] TO PROVIDE VAN TRANSPORT IN THE MORNING, 12-14-18. Tamale Machine Feeder: Jared Kirk DCP- Discharge Planning Updated by [id number]: Jared Kirk on 12/06/18 2:[address] Patient Name: SAUL MCNALLY Encounter No: [id number] : 1975 Primary Insurance: MEDICARE A & B Anticipated DC Date: Planned Disposition: Nursing Facility [facility] External Planned Provider: NIECY MANOR, LONG TERM CARE MEDICAID BED Discharge Planning Comments: CM CALLED [facility], , LEFT MESSAGE FOR BOX PULLERIQRA, NOTIFYING THAT CM WAS SENDING HOSPITAL UPDATE. CM ASKED TO SEND TO NURSE DEVENDRA. CM FAXED UPDATE TO DEVENDRA AT [facility] AT [phone]. FOR DISCHARGE, FAX DISCHARGE INFORMATION TO [facility] AT [phone], CALL NURSE REPORT TO [facility] AT [phone]. [facility] TO PROVIDE VAN TRANSPORT. Tamale Machine Feeder: Jared Kirk HIP- Discharge Planning Updated by [id number]: Jared Kirk on 12/05/18 4:[address] Patient Name: SAUL MCNALLY Admission Status: ER Accout number: [id number] Admission Date: 12-02-2018 : 1975 Admission Diagnosis: Attending: Hu Albert Current LOS: 3 Anticipated DC Date: Planned Disposition: Nursing Facility [facility] Primary Insurance: MEDICARE A & B PLANNED EXTERNAL PROVIDER: NIECY NORFOLKKIANNA, LONG TERM CARE MEDICAID BED Discharge Planning Comments: CM MET WITH PT IN ROOM TO DISCUSS DISCHARGE PLANNING AND NEEDS. PT REPORTS LIVING AT HOME DEPENDENTLY ON STAFF AT [facility] FOR ASSISTANCE WITH BATHING, MEDICATION MANAGEMENT AND TRANSFERS. PT REPORTS BEING [facility]IR AT [facility]. PT GOES TO DIALYSIS AT [facility], T[place], 1115AM, [facility] TRANSPORT VIA [facility]ELCHAIR. . PT DENIES DISCHARGE NEEDS, PLANS TO RETURN TO THE [facility] WHERE SHE LIVES. FOR DISCHARGE, FAX DISCHARGE INFORMATION TO [facility] AT [phone], CALL NURSE REPORT TO [facility] AT [phone]. [facility] TO PROVIDE VAN TRANSPORT. Tamale Machine Feeder: Jared Kirk DCPIA - Discharge Planning Initial Assessment Updated by [id number]: Jared Kirk on 12/05/18 5:16 pm * Is the patient Alert and Oriented? Yes * How many steps to enter\exit or inside your home? NONE * PCP DR. GARCIA * Pharmacy [facility] [place] * Preadmission Environment Armature Balancer Penit[facility]iary * Facility Name [facility] * ADLs Partial Dependent * Partial ADLs (Assistance needed) Bathing Medication Management Transfers * Equipment Wheelchair * Other Equipment ALL MEDICAL EQUIPMENT PROVIDED BY FACILITY * List name and contact numbers for known caregivers / representatives who currently or will assist patient after discharge: PREM GUSTAFSON, SHELLIER, * Verbal permission to speak to the caregivers and representatives has been obtained from the patient. Yes * Community resources currently utilized Other * Please name any agencies selected above. OUTPATIENT DIALYSIS, [facility], [facility], 1115, [facility] * Can the patient safely return to the preadmission environment? Yes * Has this patient been hospitalized within the prior 30 days at any hospital? No Coverage Notice Reviewer: [id number] - Jared Kirk Notice Issued Date-Time: 12/13/2018 12:15 Notice Type: IM Discharge Notice Notice Delivered To: Patient Relationship to Patient: Mortgage Counselor Name: Delivery Method: HAND - Hand Delivered Cleo Days: Prior Verbal Notification: Recipient Understood Notice: Yes Recipient Signature: Yes Med Rec Note Co-signed by Attending: Coverage Notice Comment: Last DP export: 12/13/18 11:38 a Patient Name: SAUL MCNALLY Page [id number] at 1246 All edits/amendments must be made on the electronic document DICTATION DATE: 12/13/18 1246 DATA STORAGE SPECIALIST: LENORE 12/13/18 1246 RPT#: [id number] HI DATE: STATUS: ADM IN [facility] [address] [place] [address] END OF REPORT
[2018-12-13] MEDS ORDERED: AMOX TR-K CLV 21 TAB PO (12:58)
--- NOTE | 2018-12-13 14:24 | NUR ---
NOTIFIED OF PLANNED DISCHARGE TOMORROW. VOICED UNDERSTANDING. DENIES ANY NEEDS AT THIS TIME.
[2018-12-13 20:00] VITALS: BP 132/56
--- NOTE | 2018-12-13 20:00 | NUR ---
INITIAL ROUNDS COMPLETED - PT SEEMS MUCH MORE ALERT AND ORIENTED THAN BEFORE. A/OX4. CVL DRESSING C/D/I. L ARM DRESSING CHANGED 12/13/18 BY WOUND NURSE. PT CLEAN AND DRY PER STEVE ZHENG. DENIES FURTHER NEEDS AT THIS TIME. WILL CONTINUE TO OBSERVE AND FOLLOW POC. CL IN REACH, SR UP X2, BED IN LOW POSITION.
[2018-12-14] VITALS: BP 150/43
--- NOTE | 2018-12-14 03:54 | NUR ---
PT IN BED RESTING COMFORTABLY, AROUSES EASILY TO NOISE. RR EVEN AND UL, NO S/S OF DISTRESS. DENIES ANY PAIN/DISCOMFORT/NEEDS AT THIS TIME. WILL CONTINUE TO MONITOR NEEDS. SR UP X2, CL IN REACH, BED IN LOWEST POSITION. VSS.
[2018-12-14 04:00] VITALS: BP 148/64
[2018-12-14 06:19] LABS: BASOPHILS 0.7 % (0-2); EOSINOPHILS 4.6 % (0-7); HEMOGLOBIN 9.5 g/dL (12-16); IMMATURE GRANULOCYTES 0.6 % (0-5); LYMPHOCYTES 24.2 % (15-50); MCH 33.8 pg (26.0-34.0); MCHC 32.8 g/dL (31.0-37.0); MCV 103.2 fL (80.0-100.0); MONOCYTES 6.8 % (2-11); NEUTROPHILS 63.1 % (40-80); PLATELET COUNT 306 10x3/uL (130-400); RBC 2.81 10x6/uL (4.00-5.40); RDW 15.5 % (11.5-14.5); WBC 8.1 10x3/uL (4.8-10.8)
[2018-12-14 06:29] LABS: ANION GAP 19.7 mmol/L (8-16); CALCIUM 7.9 mg/dL (8.5-10.1); POTASSIUM - SERUM 3.7 mmol/L (3.5-5.1)
[2018-12-14 06:33] LABS: CREATININE - SERUM 12.3 mg/dL (0.6-1.3)
--- NOTE | 2018-12-14 07:30 | NUR ---
RECEIVED A/A/OX4. DENIES ANY PAIN OR DISCOMFORT AND NO REQUESTS VOICED. LEFT ARM REMAINS SWOLLEN AND RED, DRESSING IN PLACE C/D/I. FAINT THRILL AND STRONG BRUIT TO AV FISTULA. HEMESPLIT RIGHT CHEST PATENT WITH DRESSING C/D/I. CL PATENT TO LEFT IJ WITHOUT REDNESS OR SWELLING. BED IN LOWEST POSITION WITH SIDERAILS UP X 2 AND CALL LIGHT IN REACH. ASSESSMENT COMPLETED.
--- NOTE | 2018-12-14 08:39 | MORECARE ---
CASE MANAGEMENT DISCHARGE SUMMARY PATIENT: SAUL MCNALLY UNIT: [id number] ADM DATE: 12/02/18 AGE: 43 : 77 SEX: F ROOM/BED: D.1116 AUTHOR: DARRIN STEVE PHYSICIAN: REFERRING PHYSICIAN: HU ALBERT MD DATE OF SERVICE: 12/14/18 Discharge Plan Patient Name: SAUL MCNALLY Facility: [facility]:[place] : 1975 Planned Disposition: Nursing Facility [facility] Cert Anticipated Discharge Date: 12/13/18 Discharge Date: Expected LOS: 11 Initial Reviewer: [id number] Initial Review Date: 12/06/2018 Generated: 12/14/18 9:39 am Comments DCP- Discharge Planning Updated by [id number]: Jared Kirk on 12/14/18 7:[address] Patient Name: SAUL MCNALLY Encounter No: [id number] : 1975 Primary Insurance: MEDICARE A & B Anticipated DC Date: 12-13-2018 Planned Disposition: Nursing Facility [facility] Cert External Planned Provider: [facility], LONG TERM CARE MEDICAID BED DCP follow-up note: CM CONFIRMED WITH RENAL NURSE THAT PT'S OUTPATIENT DIALYSIS SCHEDULE IS TTS, PT TO RESUME OUTPATIENT DIALYSIS TOMORROW, 12-14-18 AT 1100 OUTPATIENT. CM FAXED DISCHARGE INFORMATION TO [facility] AT [phone]. CALL NURSE REPORT TO DEVENDRA AT [facility], . [facility] TO PROVIDE VAN TRANSPORT THIS MORNING. Director Pediatric: Jared Kirk DCP- Discharge Planning Updated by [id number]: Jared Kirk on 12/13/18 11:[address] Patient Name: SAUL MCNALLY Encounter No: [id number] : 1975 Primary Insurance: MEDICARE A & B Anticipated DC Date: 12-13-2018 Planned Disposition: Nursing Facility [facility] Cert External Planned Provider: [facility] MANOR, LONG TERM CARE MEDICAID BED Discharge Planning Comments: CM SPOKE TO RENAL CISCO DARDEN WHO INFORMED CM THAT PT CAN DISCHARGE HOME TO [facility] TODAY. CM SPOKE TO PT IN ROOM WHO IS IN AGREEMENT WITH DISCHARGE HOME TODAY, INFORMED CM THAT THERE IS NO ONE TO CALL FOR HER AND THAT TO TELL THE [facility] TO BRING HER WHEELCHAIR. IMPORTANT MESSAGE FROM MEDICARE PROVIDED AND EXPLAINED. CM CALLED [facility], , LEFT MESSAGE FOR SEWING TECHNIQUES DEMONSTRATORIQRA, NOTIFYING THAT CM WAS SENDING HOSPITAL UPDATE WITH PLANNED DISCHARGE FOR TODAY. CM ASKED TO SEND TO NURSE RAMSAY. CM FAXED UPDATE TO DEVENDRA AT [facility] AT [phone]. CM SPOKE TO TECHNICAL SALES REPRESENTATIVES WHO REPORTS THAT THEY DO NOT HAVE TRANSPORT AVAILABLE UNTIL TOMORROW MORNING AND WILL DOCUMENT PREPARATION SPECIALIST PT FIRST THING IN THE MORNING. CM NOTIFIED CISCO DARDEN, SPOUT WORKER NURSE AND PATIENT. PT WILL NEED DOCUMENT PREPARATION SPECIALIST FIRST THING SHE HAS DIALYSIS TOMORROW, 12-14-18 AT 1100 OUTPATIENT. FOR DISCHARGE, FAX DISCHARGE INFORMATION TO [facility] AT [phone], CALL NURSE REPORT TO DEVENDRA AT [facility], . [facility] TO PROVIDE VAN TRANSPORT IN THE MORNING, 12-14-18. Director Pediatric: Jared Kirk [facility]- Discharge Planning Updated by [id number]: Jared Kirk on 12/06/18 2:[address] Patient Name: SAUL MCNALLY Encounter No: [id number] : 1975 Primary Insurance: MEDICARE A & B Anticipated DC Date: Planned Disposition: Nursing Facility [facility] Cert External Planned Provider: NIECY AGUAYO, [facility] MEDICAID BED Discharge Planning Comments: CM CALLED [facility], , LEFT MESSAGE FOR SEWING TECHNIQUES DEMONSTRATORIQRA, NOTIFYING THAT CM WAS SENDING HOSPITAL UPDATE. CM ASKED TO SEND TO NURSE DEVENDRA. CM FAXED UPDATE TO DEVENDRA AT [facility] AT [phone]. FOR DISCHARGE, [facility] AT [phone], CALL NURSE REPORT TO [facility] AT [phone]. [facility] TO PROVIDE VAN TRANSPORT. Director Pediatric: Jared Kirk MDP- Discharge Planning Updated by [id number]: Jared Kirk on 12/05/18 4:[address] Patient Name: SAUL MCNALLY Admission Status: ER Accout number: [id number] Admission Date: 12-02-2018 : 1975 Admission Diagnosis: Attending: Hu Albert Current LOS: 3 Anticipated DC Date: Planned Disposition: Nursing Facility [facility] Primary Insurance: MEDICARE A & B PLANNED EXTERNAL PROVIDER: NIECY AGUAYO, RESIDENTIAL CARE MEDICAID BED Discharge Planning Comments: CM MET WITH PT IN ROOM TO DISCUSS DISCHARGE PLANNING AND NEEDS. PT REPORTS LIVING AT HOME DEPENDENTLY ON STAFF AT [facility] FOR ASSISTANCE WITH BATHING, MEDICATION MANAGEMENT AND TRANSFERS. PT REPORTS BEING UP TO WHEELCHAIR AT [facility]. PT GOES TO DIALYSIS AT [facility], [place], 1115AM, [facility] TRANSPORT VIA WHEELCHAIR. . PT DENIES DISCHARGE NEEDS, PLANS TO RETURN TO THE [facility] WHERE SHE LIVES. FOR DISCHARGE, FAX DISCHARGE INFORMATION TO [facility] AT [phone], CALL NURSE REPORT TO [facility] AT [phone]. [facility] TO PROVIDE VAN TRANSPORT. Director Pediatric: Jared Kirk DCA - Discharge Planning Initial Assessment Updated by [id number]: Jared Kirk on 12/05/18 5:16 pm * Is the patient Alert and Oriented? Yes * How many steps to enter\exit or inside your home? NONE * PCP DR. GARCIA * Pharmacy [facility] [place] * Preadmission Environment Urology Surgeon Custodial * Facility Name [facility] * ADLs Partial Dependent * Partial ADLs (Assistance needed) Bathing Medication Management Transfers * Equipment Wheelchair * Other Equipment ALL MEDICAL EQUIPMENT PROVIDED BY FACILITY * List name and contact numbers for known caregivers / representatives who currently or will assist patient after discharge: PREM GUSTAFSON, BROTHER, * Verbal permission to speak to the caregivers and representatives has been obtained from the patient. Yes * Community resources currently utilized Other * Please name any agencies selected above. OUTPATIENT DIALYSIS, [facility], [facility], 1115, [facility] TRANSP[facility] * Can the patient safely return to the preadmission environment? Yes * Has this patient been hospitalized within the prior 30 days at any hospital? No Coverage Notice Reviewer: [id number] - Jared Kirk Notice Issued Date-Time: 12/13/2018 12:15 Notice Type: IM Discharge Notice Notice Delivered To: Patient Relationship to Patient: Director Enterprise Sales Name: Delivery Method: HAND - Hand Delivered Cleo Days: Prior Verbal Notification: Recipient Understood Notice: Yes Recipient Signature: Yes Med Rec Note Co-signed by Attending: Coverage Notice Comment: Last DP export: 12/13/18 11:46 a Patient Name: SAUL MCNALLY Page [id number] at 0839 All edits/amendments must be made on the electronic document DICTATION DATE: 12/14/18837 DAIRY FEED SALES CONSULTANT: LENORE 12/14/18837 RPT#: [id number] DC DATE: STATUS: ADM IN [facility] [address] [place] [address] END OF REPORT
[2018-12-14 08:55] VITALS: BP 150/63
--- NOTE | 2018-12-14 08:59 | MORECARE ---
CASE MANAGEMENT DISCHARGE SUMMARY PATIENT: SAUL MCNALLY UNIT: [id number] ADM DATE: 12/02/18 AGE: 43 : 77 SEX: F ROOM/BED: D.6630 AUTHOR: DARRIN STEVE PHYSICIAN: REFERRING PHYSICIAN: HU ALBERT MD DATE OF SERVICE: 12/14/18 Discharge Plan Patient Name: SAUL MCNALLY Facility: [facility]:[place] : 1975 Planned Disposition: Nursing Facility [facility] Cert Anticipated Discharge Date: 12/13/18 Discharge Date: Expected LOS: 11 Initial Reviewer: [email or web address] Initial Review Date: 12/06/2018 Generated: 12/14/18 9:59 am Comments DCP- Discharge Planning Updated by [email or web address]: Jared Kirk on 12/14/18 7:[address] Patient Name: SAUL MCNALLY Encounter No: [id number] : 1975 Primary Insurance: MEDICARE A & B Anticipated DC Date: 12-13-2018 Planned Disposition: Nursing Facility [facility] Cert External Planned Provider: [facility], LONG TERM CARE MEDICAID BED DCP follow-up note: CM CONFIRMED WITH RENAL NURSE THAT PT'S OUTPATIENT DIALYSIS SCHEDULE IS TTS, PT TO RESUME OUTPATIENT DIALYSIS TOMORROW, 12-14-18 AT 1100 OUTPATIENT. CM FAXED DISCHARGE INFORMATION TO [facility] AT [phone]. CALL NURSE REPORT TO DEVENDRA AT [facility], . [facility] TO PROVIDE VAN TRANSPORT THIS MORNING. Veneer Redrier: Jared Kirk DCP- Discharge Planning Updated by [email or web address]: Jared Kirk on 12/13/18 11:[address] Patient Name: SAUL MCNALLY Encounter No: [id number] : 1975 Primary Insurance: MEDICARE A & B Anticipated DC Date: 12-13-2018 Planned Disposition: Nursing Facility [facility] Cert External Planned Provider: [facility], LONG TERM CARE MEDICAID BED Discharge Planning Comments: CM SPOKE TO RENAL CISCO DARDEN WHO INFORMED CM THAT PT CAN DISCHARGE HOME TO INTERMEDI[facility] TODAY. CM SPOKE TO PT IN ROOM WHO IS IN AGREEMENT WITH DISCHARGE HOME TODAY, INFORMED CM THAT THERE IS NO ONE TO CALL FOR HER AND THAT TO TELL THE INTERMEDIATE TO BRING HER WHEELCHAIR. IMPORTANT MESSAGE FROM MEDICARE PROVIDED AND EXPLAINED. CM CALLED NIECY AGUAYO, , LEFT MESSAGE FOR [facility], NOTIFYING THAT CM WAS SENDING HOSPITAL UPDATE WITH PLANNED DISCHARGE FOR TODAY. CM ASKED TO SEND TO NURSE RAMSAY. CM FAXED UPDATE TO DEVENDRA AT [facility] AT [phone]. CM SPOKE TO SAMPLER AND TEST PREPARER WHO REPORTS THAT THEY DO NOT HAVE TRANSPORT AVAILABLE UNTIL TOMORROW MORNING AND WILL DYNAMOMETER MECHANIC PT FIRST THING IN THE MORNING. CM NOTIFIED CISCO DARDEN, STRAIGHTENING ROLL OPERATOR NURSE AND PATIENT. PT WILL NEED DYNAMOMETER MECHANIC FIRST THING SHE HAS DIALYSIS TOMORROW, 12-14-18 AT 1100 OUTPATIENT. FOR DISCHARGE, FAX DISCHARGE INFORMATION TO [facility] AT [phone], CALL NURSE REPORT TO DEVENDRA AT [facility], . [facility] TO PROVIDE VAN TRANSPORT IN THE MORNING, 12-14-18. Veneer Redrier: Jared Kirk [facility]- Discharge Planning Updated by [email or web address]: Jared Kirk on 12/06/18 2:[address] Patient Name: SAUL MCNALLY Encounter No: [id number] : 1975 Primary Insurance: MEDICARE A & B Anticipated DC Date: Planned Disposition: Nursing Facility [facility] Cert External Planned Provider: [facility], [facility] MEDICAID BED Discharge Planning Comments: CM CALLED NIECY AGUAYO, , LEFT MESSAGE FOR [facility], NOTIFYING THAT CM WAS SENDING HOSPITAL UPDATE. CM ASKED TO SEND TO NURSE DEVENDRA. CM FAXED UPDATE TO DEVENDRA AT [facility] AT [phone]. FOR DISCHARGE, [facility] AT [phone], CALL NURSE [facility]PORT TO [facility] AT [phone]. [facility] TO PROVIDE VAN TRANSPORT. Veneer Redrier: Jared Kirk [facility]- Discharge Planning Updated by [id number]: Jared Kirk on 12/05/18 4:[address] Patient Name: SAUL MCNALLY Admission Status: ER Accout number: [id number] Admission Date: 12-02-2018 : 1975 Admission Diagnosis: Attending: Hu Albert Current LOS: 3 Anticipated DC Date: Planned Disposition: Nursing Facility [facility] Primary Insurance: MEDICARE A & B PLANNED EXTERNAL PROVIDER: NIECY AGUAYO, SENIOR LIVING CARE MEDICAID BED Discharge Planning Comments: CM MET WITH PT IN ROOM TO DISCUSS DISCHARGE PLANNING AND NEEDS. PT REPORTS LIVING AT HOME DEPENDENTLY ON STAFF AT [facility] FOR ASSISTANCE WITH BATHING, MEDICATION MANAGEMENT AND TRANSFERS. PT REPORTS BEING UP TO WHEELCHAIR AT INTERMEDIATE. PT GOES TO DIALYSIS AT [facility], TTS, 1115AM, INTERMEDIATE TRANSPORT VIA WHEELCHAIR. . PT DENIES DISCHARGE NEEDS, PLANS TO RETURN TO THE INTER[facility]IATE WHERE SHE LIVES. FOR DISCHARGE, FAX DISCHARGE INFORMATION TO [facility] AT [phone], CALL NURSE REPORT TO [facility] AT [phone]. [facility] TO PROVIDE VAN TRANSPORT. Veneer Redrier: Jared Kirk DCA - Discharge Planning Initial Assessment Updated by [email or web address]: Jared Kirk on 12/05/18 5:16 pm * Is the patient Alert and Oriented? Yes * How many steps to enter\exit or inside your home? NONE * PCP DR. GARCIA * Pharmacy [facility] [place] * Preadmission Environment Neonatal Specialist [place] * Facility Name [facility] * ADLs Partial Dependent * Partial ADLs (Assistance needed) Bathing Medication Management Transfers * Equipment Wheelchair * Other Equipment ALL MEDICAL EQUIPMENT PROVIDED BY FACILITY * List name and contact numbers for known caregivers / representatives who currently or will assist patient after discharge: PREM GUSTAFSON, BROTHER, * Verbal permission to speak to the caregivers and representatives has been obtained from the patient. Yes * Community resources currently utilized Other * Please name any agencies selected above. OUTPATIENT DIALYSIS, [facility], TTS, 1115, INTERMEDIATE TRANSPORT * Can the patient safely return to the preadmission environment? Yes * Has this patient been hospitalized within the prior 30 days at any hospital? No Coverage Notice Reviewer: [id number] - Jared Kirk Notice Issued Date-Time: 12/13/2018 12:15 Notice Type: IM Discharge Notice Notice Delivered To: Patient Relationship to Patient: Ug Designer Name: Delivery Method: HAND - Hand Delivered Cleo Days: Prior Verbal Notification: Recipient Understood Notice: Yes Recipient Signature: Yes Med Rec Note Co-signed by Attending: Coverage Notice Comment: Last DP export: 12/14/18 7:39 a Patient Name: SAUL MCNALLY Page [id number] at 0859 All edits/amendments must be made on the electronic document DICTATION DATE: 12/14/18857 PRESS TENDER INCENDIARY GRENADE: LENORE 12/14/18857 RPT#: [id number] DC DATE: STATUS: ADM IN [facility] [address] [place] [address] END OF REPORT
--- NOTE | 2018-12-14 09:02 | NUR ---
All kaylee are removed from incisions. Incision lines are intact and without redness or drainage. New dressing applied. Pt tolerated well.
--- NOTE | 2018-12-14 10:33 | NUR ---
REPORT CALLED TO DEVENDRA DANIEL [facility].
--- NOTE | 2018-12-14 10:43 | NUR ---
CVL REMOVED FROM LEFT IJ. ASSIST GETTING DRESSED AND UP TO W/C.
--- NOTE | 2018-12-14 10:46 | NUR ---
PT WAS GIVEN DISCHARGE INSTUCTIONS WITHOUT QUESTIONS. LEFT FLOOR VIA W/C WITH ALL PERSONAL BELONGINGS. LEFT FACILITY VIA [facility]. CENTRAL LINE WAS REMOVED BY DIVINE XIAO. WAS INTACT.
== END 2018-12-14 10:53 | DRG 314 ==
LOC: D.ER 12:14 → D.EDHOLD 17:08 → D.M2 17:08
PROVIDERS: Family Medicine; ADMIT Internal Medicine Nephrology
PROC: 05HN33Z Insertion of Infusion Device into Left Internal Jugular Vein, Percutaneous Approach (ICD-10-PCS; principal; 2018-12-02)
PROC: 5A1D70Z Performance of Urinary Filtration, Intermittent, Less than 6 Hours Per Day (ICD-10-PCS; 2018-12-04)
DX: T82.7XXA Infection and inflammatory reaction due to other cardiac and vascular devices, implants and grafts, initial encounter (principal); N18.6 End stage renal disease; I12.0 Hypertensive chronic kidney disease with stage 5 chronic kidney disease or end stage renal disease; D68.59 Other primary thrombophilia; Y83.8 Other surgical procedures as the cause of abnormal reaction of the patient, or of later complication, without mention of misadventure at the time of the procedure; E11.22 Type 2 diabetes mellitus with diabetic chronic kidney disease; Z99.2 Dependence on renal dialysis; F32.9 Major depressive disorder, single episode, unspecified; I69.320 Aphasia following cerebral infarction; D63.1 Anemia in chronic kidney disease; Z87.891 Personal history of nicotine dependence

== ENCOUNTER 2019-02-14 09:10 | Inpatient (IN) | payer MEDICARE ==
[~2019-02-14] VITALS: Ht 157.5 cm; Wt 95.2 kg
[~2019-02-14 09:10] MED LIST changes: +ABILIFY10 MG PO; +AMOX TR-K CLV 21 TAB PO; +ASCORBIC ACID500 MG PO; +BACTROBAN NASAL1 GM NASAL; +FERROUS SULFAT325 MG PO; +MELATONIN 3 MG1 TAB PO; +MULTI-DAY VITAM1 TAB PO; +NORCO 7.5/325 T1 TA1; +NORCO 7.5/325 T1 TA1 PO; +ONDANSETRON4 MG/2 M3 IV; +PROCRIT/EP10000 UNIT SQ; +ZOFRAN4 MG PO
--- NOTE | 2019-02-14 11:13 | NUR ---
UNABLE TO OBTAIN IV ACCESS OR OBTAIN BLOOD SPECIMEN AT THIS TIME. NOTIFIED
--- NOTE | 2019-02-14 12:04 | MORECARE ---
CASE MANAGEMENT DISCHARGE SUMMARY PATIENT: SAUL MCNALLY UNIT: [id number] ADM DATE: 02/14/19 AGE: 43 : [birth year] SEX: F ROOM/BED: D.E14 AUTHOR: DARRIN STEVE PHYSICIAN: REFERRING PHYSICIAN: GABI GUTIERREZ MD DATE OF SERVICE: 02/14/19 Discharge Plan Patient Name: SAUL MCNALLY Facility: [facility]:[place] : 1975 Planned Disposition: Group Home Facility Anticipated Discharge Date: 02/16/19 Discharge Date: Expected LOS: 2 Initial Reviewer: [email or web address] Initial Review Date: 02/14/2019 Generated: 02/14/19 1:04 pm Patient Name: SAUL MCNALLY Page [id number] at 1204 All edits/amendments must be made on the electronic document DICTATION DATE: 02/14/19 1204 VOICE OVER ARTIST: LENORE 02/14/19 1204 RPT#: [id number] DC DATE: STATUS: ADM IN [facility] [address] [place] [address] END OF REPORT
--- NOTE | 2019-02-14 12:12 | MORECARE ---
CASE MANAGEMENT DISCHARGE SUMMARY PATIENT: SAUL MCNALLY UNIT: [id number] ADM DATE: 02/14/19 AGE: 43 : [birth year] SEX: F ROOM/BED: D.E14 AUTHOR: DARRIN STEVE PHYSICIAN: REFERRING PHYSICIAN: GABI GUTIERREZ MD DATE OF SERVICE: 02/14/19 Discharge Plan Patient Name: SAUL MCNALLY Facility: [facility] : 1975 Planned Disposition: Senior Care Facility Anticipated Discharge Date: 02/16/19 Discharge Date: Expected LOS: 2 Initial Reviewer: [email or web address] Initial Review Date: 02/14/2019 Generated: 02/14/19 1:12 pm DCPIA - Discharge Planning Initial Assessment Updated by [email or web address]: Amna Agustin on 02/14/19 12:09 pm * Is the patient Alert and Oriented? Yes * How many steps to enter\exit or inside your home? None * PCP [facility] and Dr. Hernandez * Pharmacy [facility] * Preadmission Environment Senior Care Facility * Facility Name [facility] [phone] * ADLs Partial Dependent * Partial ADLs (Assistance needed) Ambulation Bathing Dressing Medication Management Toileting Transfers * Equipment Wheelchair * Other Equipment Patient is not able to ambulate and reports she is able to sit up in wc. She is also able to feed herself. * List name and contact numbers for known caregivers / representatives who currently or will assist patient after discharge: Cristi Mcnally - brother [phone] * Verbal permission to speak to the caregivers and representatives has been obtained from the patient. Yes * Community resources currently utilized None * Additional services required to return to the preadmission environment? No * Can the patient safely return to the preadmission environment? Yes * Has this patient been hospitalized within the prior 30 days at any hospital? No Last DP export: 02/14/19 11:04 a Patient Name: SAUL MCNALLY Page [phone] at 1212 All edits/amendments must be made on the electronic document DICTATION DATE: 02/14/191210 CARD TENDER: DM 02/14/19 121 RPT#: [id number] DC DATE: STATUS: ADM IN [facility] [address] [place] [address] END OF REPORT
--- NOTE | 2019-02-14 12:19 | MORECARE ---
CASE MANAGEMENT DISCHARGE SUMMARY PATIENT: SAUL MCNALLY UNIT: [id number] ADM DATE: 02/14/19 AGE: 43 : [birth year] SEX: F ROOM/BED: D.E14 AUTHOR: DARRIN STEVE PHYSICIAN: REFERRING PHYSICIAN: GABI GUTIERREZ MD DATE OF SERVICE: 02/14/19 Discharge Plan Patient Name: SAUL MCNALLY Facility: [facility]:[place] : 1975 Planned Disposition: Retirement Facility Anticipated Discharge Date: 02/16/19 Discharge Date: Expected LOS: 2 Initial Reviewer: [email or web address] Initial Review Date: 02/14/2019 Generated: 02/14/19 1:18 pm Comments DCP- Discharge Planning Updated by [id number]: Amna Agustin on 02/14/19 11:[address] Patient Name: SAUL MCNALLY Admission Status: ER Accout number: [id number] Admission Date: 02-14-2019 : 1975 Admission Diagnosis: Attending: GABI GUTIERREZ Current LOS: 1 Anticipated DC Date: 02-16-2019 Planned Disposition: Retirement Facility - [facility] [phone] Primary Insurance: MEDICARE A & B Discharge Planning Comments: CM met with patient to complete initial dc planning assessment. CM educated patient on the CM role and verbal consent given by patient to complete assessment. Patient reports she is a resident at [facility]. Phone number: [phone]. The patient goes to hemodialysis on via transportation from [facility]. Her Jacquard Card Cutter is Dr. Dr. Hernandez. The patient's dc plan is to return to the skilled nursing and feels this is a safe dc plan. Patient denied known discharge needs at this time. CM will continue to follow and will assist as needed with dc plans/needs. Conveyor Monitor: Amna Agustin RN, [facility] DCPIA - Discharge Planning Initial Assessment Updated by [email or web address]: Amna Agustin on 02/14/19 12:09 pm * Is the patient Alert and Oriented? Yes * How many steps to enter\exit or inside your home? None * PCP Assisted Physician and Dr. Hernandez * Pharmacy [facility] * Preadmission Environment Retirement Facility * Facility Name [facility] - [phone] * ADLs Partial Dependent * Partial ADLs (Assistance needed) Ambulation Bathing Dressing Medication Management Toileting Transfers * Equipment Wheelchair * Other Equipment Patient is not able to ambulate and reports she is able to sit up in wc. She is also able to feed herself. * List name and contact numbers for known caregivers / representatives who currently or will assist patient after discharge: Cristi Mcnally - brother - [phone] * Verbal permission to speak to the caregivers and representatives has been obtained from the patient. Yes * Community resources currently utilized None * Additional services required to return to the preadmission environment? No * Can the patient safely return to the preadmission environment? Yes * Has this patient been hospitalized within the prior 30 days at any hospital? No Last DP export: 02/14/19 11:12 a Patient Name: SAUL MCNALLY Page [phone] at 1219 All edits/amendments must be made on the electronic document DICTATION DATE: 02/14/191217 LEAK OPERATOR PARAFFIN PLANT: LENORE 02/14/191217 RPT#: [id number] DC DATE: STATUS: ADM IN [facility] [address] [place] [address] END OF REPORT
[2019-02-14 12:35] LABS: BASOPHILS 0.8 % (0-2); EOSINOPHILS 2.4 % (0-7); HEMATOCRIT 34.6 % (36.0-48.0); HEMOGLOBIN 11.1 g/dL (12-16); IMMATURE GRANULOCYTES 0.1 % (0-5); LYMPHOCYTES 25.1 % (15-50); MCH 32.9 pg (26.0-34.0); MCHC 32.1 g/dL (31.0-37.0); MCV 102.7 fL (80.0-100.0); MEAN PLATELET VOLUME 10.2 fL (7.4-10.4); MONOCYTES 7.3 % (2-11); NEUTROPHILS 64.3 % (40-80); PLATELET COUNT 247 10x3/uL (130-400); RBC 3.37 10x6/uL (4.00-5.40); RDW 15.8 % (11.5-14.5); WBC 7.1 10x3/uL (4.8-10.8)
--- NOTE | 2019-02-14 12:36 | NUR ---
SURGICAL CONSENTS SIGNED AND PLACED WITH PATIENT CHART AT THIS TIME. ALL PATIENT BELONGINGS PLACED IN BELONGING BAG AT THIS TIME. PT IN NO DISTRESS. VSS. WILL CONTINUE TO MONITOR FOR CHAGNES.
[2019-02-14 13:11] LABS: ALBUMIN 3.2 g/dL (3.4-5.0); ALKALINE PHOSPHATASE 145 U/L (46-116); ALT (SGPT) 32 U/L (10-68); BILIRUBIN - TOTAL 0.35 mg/dL (0.2-1.3); CALC OSMOLALITY 290 mosm/kg (275-300); CALCIUM 8.1 mg/dL (8.5-10.1); CARBON DIOXIDE 24.2 mmol/L (21.0-32.0); CHLORIDE - SERUM 98 mmol/L (98-107); CREATININE - SERUM 9.4 mg/dL (0.6-1.3); GLUCOSE 86 mg/dL (74-106); PROTEIN - SERUM 7.8 g/dL (6.4-8.2); SODIUM 137 mmol/L (136-145); UREA NITROGEN 62 mg/dL (7-18); eGFR NON AFRICAN AMERICAN 5 mL/min (90-120)
--- NOTE | 2019-02-14 13:15 | NUR ---
1302-RECEIVED REPORT FROM WILLEM IN THE ED. PATIENT IS NPO FOR SURGERY TODAY.
[2019-02-14 13:25] LABS: AMYLASE - SERUM 72 U/L (25-115); CKMB 0.9 U/L (0.0-3.6); LIPASE 203 U/L (73-393); MAGNESIUM - SERUM 1.8 mg/dL (1.8-2.4)
--- NOTE | 2019-02-14 13:26 | NUR ---
RECEIVED TO ROOM VIA STRETCHER. RES. BILATERAL ARMS WITH AVF. + BRUIT AND THRILL. WILL ADMIT. PATIENT STATES THAT SHE HAS HAD A STROKE IN THE PAST.
--- NOTE | 2019-02-14 13:37 | NUR ---
HOME WITH CM HERE AT THIS FACILITY LOOKED IN PAST HX OF PATIENT AND FOUND SHE WAS FROM [facility]. I CALL THEM AND SPOKE TO DEVENDRA WHO IS SUPPOSE TO FAX US A COPY OF HER HX AND MEDICATION LIST.
[2019-02-14 13:38] VITALS: BP 141/84; Ht 157.5 cm; Wt 95.2 kg
[2019-02-14 14:49] LABS: INR 0.99 (0.85-1.17); PROTIME 12.6 SECONDS (11.6-15.0)
[2019-02-14] MEDS ORDERED: PROCRIT/EP10000 UNIT SQ (15:15)
--- NOTE | 2019-02-14 16:47 | NUR ---
Carie.T. WITH ANESTHSIA HERE TO TRY AND SITE IV FOR SURGERY. UNSUCCESSFUL EVEN WITH ULTRASOUND.
[2019-02-14 17:09] VITALS: BP 140/79
--- NOTE | 2019-02-14 17:42 | NUR ---
PATIENT HAS NOT VOIDED FOR URINE SAMPLE SINCE ADMIT. SHE STATES UPON ADMIT THAT SHE BARELY MAKES URINE, ESRD.
--- NOTE | 2019-02-14 19:15 | NUR ---
REPORT RECIEVED AND ROUNDING COMPLETE PT ASKED FOR BED TORO. KEVYN XIAO ASSISIED GETTING PT ON BED TORO. PT WILL CALL WHEN SHE IS FINISHED. NO OTHER NEEDS AT THIS TIME CALL LIGHT WITHIN REACH.
--- NOTE | 2019-02-14 19:30 | NUR ---
PT CALLED FINISHED WITH BED TORO. PT HAD LARGE FORMED BM. PT MESSED PT. CHANGED BED AND CLEANED PT UP. NO OTHER NEEDS AT THIS TIME CALL LIGHT WITHIN REACH.
--- NOTE | 2019-02-14 19:45 | NUR ---
SURGERY HERE TO TAKE PT. PT LEFT FLORR VIA BED.
[2019-02-14 20:00] VITALS: BP 186/65
--- NOTE | 2019-02-14 21:12 | NUR ---
SURGERY CALLED PT ON HER WAY BACK TO FLOOR. THEY ONLY USED LOCAL FOR PROCEDURE.
[2019-02-15] VITALS: BP 140/60
--- NOTE | 2019-02-15 02:27 | NUR ---
I have reviewed this patient and I concur with the Shift Assessment completed by the Licensed Practical Nurse today this shift.
[2019-02-15 04:00] VITALS: BP 151/69
[2019-02-15 07:12] LABS: BASOPHILS 0.6 % (0-2); EOSINOPHILS 1.9 % (0-7); HEMATOCRIT 30.3 % (36.0-48.0); HEMOGLOBIN 9.4 g/dL (12-16); IMMATURE GRANULOCYTES 0.1 % (0-5); MCH 32.2 pg (26.0-34.0); MCV 103.8 fL (80.0-100.0); MEAN PLATELET VOLUME 10.6 fL (7.4-10.4); MONOCYTES 6.5 % (2-11); NEUTROPHILS 66.9 % (40-80); PLATELET COUNT 216 10x3/uL (130-400); RBC 2.92 10x6/uL (4.00-5.40); RDW 16.1 % (11.5-14.5); WBC 7.3 10x3/uL (4.8-10.8)
[2019-02-15 07:17] LABS: CALCIUM 7.3 mg/dL (8.5-10.1); CARBON DIOXIDE 24.2 mmol/L (21.0-32.0); CREATININE - SERUM 10.8 mg/dL (0.6-1.3); POTASSIUM - SERUM 5.2 mmol/L (3.5-5.1)
--- NOTE | 2019-02-15 08:11 | NUR ---
PT ASLEEP, DID NOT WAKE I ENTERED. DID NOT FURTHER DISTURB AT THIS TIME. CL INREACH. SRX2.
[2019-02-15 08:17] VITALS: BP 144/83
--- NOTE | 2019-02-15 11:11 | NUR ---
I have reviewed this patient and I concur with the Shift Assessment completed by the Licensed Practical Nurse today this shift.
--- NOTE | 2019-02-15 11:31 | OP ---
PATIENT NAME: SAUL CHACON MEDICAL RECORD: [id number] :[birth year] LOCATION:D.M2 D.2132 ADMISSION DATE:02/14/19 SURGEON: AZALIA NIELSEN MD DATE OF OPERATION: 02/14/2019 REFERRED BY: Gabi Riddle MD PREOPERATIVE DIAGNOSIS: End-stage renal disease, dependence on hemodialysis and thrombosed left arm AV graft, thrombophilia, hypertension, diabetes, and morbid obesity. POSTOPERATIVE DIAGNOSIS: End-stage renal disease, dependence on hemodialysis and thrombosed left arm AV graft, thrombophilia, hypertension, diabetes, and morbid obesity. OPERATION PERFORMED: Left arm fistulogram with AngioJet mechanical thrombolysis and balloon angioplasty of left arm AV graft with particular findings of arterial anastomotic stenosis and a very small brachial artery and in-stent stenosis and the venous anastomosis. SURGEON: Azalia Nielsen MD ANESTHESIA: TIVA per SEAT INSTALLER and local 1% lidocaine. PREOPERATIVE NOTE: This 43-year-old white female, alf patient from [place] has end-stage renal disease and is on chronic hemodialysis at the [facility]. She presented apparently this morning with a thrombosed AV graft. This is an Artegraft artery to axillary vein, left arm loop graft which I implanted last summer. Ms. 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 She is brought to the operating room now to try to salvage this AV graft. Under sedation and monitored per SEAT INSTALLER, she was placed in supine position and the left arm prepped and draped in sterile manner. Skin and subcutaneous tissues were anesthetized with 1% lidocaine as needed. The graft was accessed in the region of the apex of the loop with opposing 6-Nepali introducer sheath each placed with micropuncture techniques. A 0.035 Glidewire was then passed through the venous limb and venous anastomosis where there is a Wallstent in position. I used the AngioJet to lyse thrombus and performed a pullback angiogram with a glide catheter and noted an in-stent stenosis near the proximal end of the Wallstent and has been placed in the venous anastomosis, which was treated quite aggressively with a 9 mm diameter Conquest high pressure balloon. The patient was systemically heparinized with 5000 units of heparin. The guidewire was then passed through the arterial limb and through the arterial anastomosis and using a glide catheter, I performed a brachial artery arteriogram, which revealed a very small brachial artery and essentially no flow in the brachial artery distal to the arterial anastomosis to the graft. This is actually not so much a new finding and she has a collateral flow to the forearm and hand and to this point, it has not been a problem. The arterial anastomosis was stenotic and I dilated this with a 5 millimeter x 4 centimeter angioplasty balloon and had good result. Thrombus within the body of the graft was further lysed with the AngioJet and the arterial anastomosis cleared additionally with a Domenic embolectomy catheter. Excellent flow was restored in the AV graft. The introducers were removed and hemostasis at those points assured with [id number] 4-0 Prolene sutures. There was a single superficial skin ulceration over the AV graft. No OPERATIVE REPORT [id number] SAUL CHACON doubt at the site of recent puncture. This looked to me like it had potential for being a problem and needed to be addressed now. I cleaned and dressed that site with an application of Bactroban cream and then dressed it as I did the other 2 puncture sites with Ultrafoam, Tegaderm, and Cavilon skin prep. The patient was then returned to her bed on med 2. The patient can have dialysis tomorrow with her AV graft and probably discharged to return to the alf shortly after that. I have had her on chronic doxycycline in the past and unless she can tolerate it, I would like to have her back on just 50 mg of doxycycline daily and I think we should continue to be fairly aggressive with the skin ulceration on her arm washing it daily with Hibiclens and keeping it dressed with Bactroban. It can be inspected easily when she goes into dialysis and the treatment continued indefinitely as needed. Also, she has a rash on the back of the arm, which looks like a hypersensitivity reaction of some type and I have ordered a betamethasone and clotrimazole combination cream to that area. Blood loss during the procedure was insignificant and unreplaced and all sponges, instruments, and needles were accounted for. No drain was used and no surgical specimen was submitted for histopathology. The patient is on Bactroban nasal applications due to her chronic MRSA and I think that it might be to her's and everybody's advantage if we changed her to perhaps once weekly application of nasal 10% povidone iodine. This easy and gentle treatment has been shown to dramatically lower rates of MRSA nasal colonization and skin and soft tissue infections. TRANSINT:[id number] Voice Confirmation ID: [id number] DOCUMENT ID: [id number] cc: Degranatanael dialysis AZALIA NIELSEN MD at 1131 CC: FRANCES CLEARY and GABI RIDDLE MD [id number] DICTATION DATE: 02/14/192143 WEB INTERFACE DEVELOPER: 02/15/19 0012 ADM IN [facility] [address] [place] [address]
[2019-02-15 12:22] VITALS: BP 141/81
[2019-02-15] MEDS ORDERED: VIBRAMYCIN50 MG PO (12:30)
[2019-02-15] MEDS ORDERED: BETADINE NASAL (12:38)
--- NOTE | 2019-02-15 13:15 | MORECARE ---
CASE MANAGEMENT DISCHARGE SUMMARY PATIENT: SAUL CHACON UNIT: [id number] ADM DATE: 02/14/19 AGE: 43 : 77 SEX: F ROOM/BED: D.2132 AUTHOR: POWERDOC PHYSICIAN: REFERRING PHYSICIAN: GABI GUTIERREZ MD DATE OF SERVICE: 02/15/19 Discharge Plan Patient Name: SAUL CHACON Facility: [facility] : 1975 Planned Disposition: [facility] Facility Anticipated Discharge Date: 02/16/19 Discharge Date: Expected LOS: 2 Initial Reviewer: [email or web address] Initial Review Date: 02/14/2019 Generated: 02/15/19 2:14 pm Comments DCP- Discharge Planning Updated by [email or web address]: Amna Agustin on 02/14/19 11:[address] Patient Name: SAUL CHACON Admission Status: ER Accout number: [id number] Admission Date: 02-14-2019 : 1975 Admission Diagnosis: Attending: GABI GUTIERREZ Current LOS: 1 Anticipated DC Date: 02-16-2019 Planned Disposition: [facility] Facility - [facility] [phone] Primary Insurance: MEDICARE A & B Discharge Planning Comments: CM met with patient to complete initial dc planning assessment. CM educated patient on the CM role and verbal consent given by patient to complete assessment. Patient reports she is a resident at [facility]. Phone number: [phone]. The patient goes to hemodialysis on via transportation from [facility]. Her Room Attendants is Dr. Dr. Hernandez. The patient's dc plan is to return to the shelter and feels this is a safe dc plan. Patient denied known discharge needs at this time. CM will continue to follow and will assist as needed with dc plans/needs. Concrete Panel Installer: Amna Agustin RN, [facility] DCPIA - Discharge Planning Initial Assessment Updated by [email or web address]: Amna Agustin on 02/14/19 12:09 pm * Is the patient Alert and Oriented? Yes * How many steps to enter\exit or inside your home? None * PCP Custodial Physician and Dr. Hernandez * Pharmacy [facility] * Preadmission Environment [facility] Facility * Facility Name [facility] - [phone] * ADLs Partial Dependent * Partial ADLs (Assistance needed) Ambulation Bathing Dressing Medication Management Toileting Transfers * Equipment Wheelchair * Other Equipment Patient is not able to ambulate and reports she is able to sit up in wc. She is also able to feed herself. * List name and contact numbers for known caregivers / representatives who currently or will assist patient after discharge: Cristi Chacon - brother - [phone] * Verbal permission to speak to the caregivers and representatives has been obtained from the patient. Yes * Community resources currently utilized None * Additional services required to return to the preadmission environment? No * Can the patient safely return to the preadmission environment? Yes * Has this patient been hospitalized within the prior 30 days at any hospital? No External Providers External Provider: [facility] Next Contact Date: 02/15/2019 Service Request Date: Service Type: Resolution: Reviewer: Comments: Last DP export: 02/14/19 11:19 a Patient Name: SAUL CHACON Page 66665 at 1315 All edits/amendments must be made on the electronic document DICTATION DATE: 02/15/191313 VOLUNTEER SERVICES SUPERVISOR: LENORE 02/15/191313 RPT#: [id number] DC DATE: STATUS: ADM IN [facility] [address] [place] [address] END OF REPORT
--- NOTE | 2019-02-15 13:27 | NUR ---
PT ARRIVED. A/O, UP AD AMINA. YOUNG DAUGHTER AT BEDSIDE (S/O WILL COME GET THE DAUGHTER IN A LITTLE BIT). PT IS NOT HAVING ANY CURRENT EXPRESSIVE APHASIA. REFUSES SCDS. (WALKS FREQUENTLY)
--- NOTE | 2019-02-15 13:29 | MORECARE ---
CASE MANAGEMENT DISCHARGE SUMMARY PATIENT: SAUL MCNALLY UNIT: [id number] ADM DATE: 02/14/19 AGE: 43 : 77 SEX: F ROOM/BED: D.2132 AUTHOR: DARRIN STEVE PHYSICIAN: REFERRING PHYSICIAN: GABI GUTIERREZ MD DATE OF SERVICE: 02/15/19 Discharge Plan Patient Name: SAUL MCNALLY Facility: [facility] : 1975 Planned Disposition: Nursing Facility [facility] Cert Anticipated Discharge Date: 02/15/19 Discharge Date: Expected LOS: 1 Initial Reviewer: [email or web address] Initial Review Date: 02/14/2019 Generated: 02/15/19 2:29 pm Comments DCP- Discharge Planning Updated by [email or web address]: Jared Kirk on 02/15/19 12:[address] Patient Name: SAUL MCNALLY Encounter No: [id number] : 1975 Primary Insurance: MEDICARE A & B Anticipated DC Date: 02-15-2019 Planned Disposition: Nursing Facility [facility] Cert External Planned Provider: NIECY AGUAYO, EMBEDDED SYSTEMS SOFTWARE ENGINEER CARE MEDICAID BED DCP follow-up note: EVITA SPOKE TO CISCO MOSER WHO INFORMED CM THAT PT WILL DISCHARGE BACK TO SNF AFTER DIALYSIS TODAY. CM MET WITH PT IN ROOM WHO REPORTS AGREEMENT WITH PLAN TO RETURN HOME TO NIECY MANKIANNA. CM FAXED DISCHARGE INFORMATION TO NIECY BRONXKIANNA AT [phone]. CM CALLED NIECY AGUAYO, , SPOKE TO IQRA WHO REPORTS THEY WILL ACCEPT BACK AND CAN ARRANGE TRANSPORTATION. NURSE REPORT TO BE CALLED TO JACLYN. EVITA EXPLAINED THAT PT HAS NOT YET HAD DIALYSIS AND EVITA HAS BEEN UNABLE TO DETERMINE WHAT TIME PT WILL BE COMPLETED WITH DIALYSIS AT THIS TIME. NURSE REPORT TO BE CALLED TO JACLYN OF NIECY AGUAYO AT [phone]; NIECY AGUAYO WILL NEED TO BE NOTIFIED OF ANTICIPATED TIME THAT PT WILL BE COMPLETED WITH DILAYSIS AND READY FOR VAN QUALITY CONTROL ASSOCIATE TODAY. Jared Kirk, CASE KEN DCP- Discharge Planning Updated by [email or web address]: Amna Agustin on 02/14/19 11:[address] Patient Name: SAUL MCNALLY Admission Status: ER Accout number: [id number] Admission Date: 02-14-2019 : 1975 Admission Diagnosis: Attending: GABI GUTIERREZ Current LOS: 1 Anticipated DC Date: 02-16-2019 Planned Disposition: [facility] Facility - [facility] [phone] Primary Insurance: MEDICARE A & B Discharge Planning Comments: CM met with patient to complete initial dc planning assessment. CM educated patient on the CM role and verbal consent given by patient to complete assessment. Patient reports she is a resident at [facility]. Phone number: [phone]. The patient goes to hemodialysis on via transportation from [facility]. Her Potato Seed Cutter is Dr. Dr. Hernandez. The patient's dc plan is to return to the correction and feels this is a safe dc plan. Patient denied known discharge needs at this time. CM will continue to follow and will assist as needed with dc plans/needs. Data Science And Iot Manager: Amna Agustin RN, [facility] DCPIA - Discharge Planning Initial Assessment Updated by [email or web address]: Amna Agustin on 02/14/19 12:09 pm * Is the patient Alert and Oriented? Yes * How many steps to enter\exit or inside your home? None * PCP [facility] and Dr. Hernandez * Pharmacy [facility] * Preadmission Environment [facility] * Facility Name [facility] - [phone] * ADLs Partial Dependent * Partial ADLs (Assistance needed) Ambulation Bathing Dressing Medication Management Toileting Transfers * Equipment Wheelchair * Other Equipment Patient is not able to ambulate and reports she is able to sit up in wc. She is also able to feed herself. * List name and contact numbers for known caregivers / representatives who currently or will assist patient after discharge: Cristi Mcnally - brother - [phone] * Verbal permission to speak to the caregivers and representatives has been obtained from the patient. Yes * Community resources currently utilized None * Additional services required to return to the preadmission environment? No * Can the patient safely return to the preadmission environment? Yes * Has this patient been hospitalized within the prior 30 days at any hospital? No Last DP export: 02/15/19 12:15 p Patient Name: SAUL MCNALLY #: [id number] Page 84057 at 1329 All edits/amendments must be made on the electronic document DICTATION DATE: 02/15/191327 APPAREL PATTERN MAKER: LENORE 02/15/191327 RPT#: [id number] DC DATE: STATUS: ADM IN [facility] [address] [place] [address] END OF REPORT
--- NOTE | 2019-02-15 14:07 | NUR ---
PT IS HAVING ANOTHER BM BUT CLAIMING SHE ISN'T AND IF SHE IS THERE MUST STILL BE TOO MUCH IN THERE. INFORMED PT I CAN'T KEEP GIVING HER MEDICATION BECAUSE SH'ES ACTIVELY HAVING BM'S. PT WANTS AN ENEMA BUT I DON'T FEEL COMFORTABLE ASKING FO RTHAT MEDICATION AT THIS TIME.
--- NOTE | 2019-02-15 14:44 | NUR ---
PT TAKEN TO DIALYIS. TO GO HOME POST DIALIZATION.
--- NOTE | 2019-02-15 15:05 | MORECARE ---
CASE MANAGEMENT DISCHARGE SUMMARY PATIENT: SAUL MCNALLY UNIT: [id number] ADM DATE: 02/14/19 AGE: 43 : 77 SEX: F ROOM/BED: D.2132 AUTHOR: POWER,DOC PHYSICIAN: REFERRING PHYSICIAN: GABI GUTIERREZ MD DATE OF SERVICE: 02/15/19 Discharge Plan Patient Name: SAUL MCNALLY Facility: [facility] : 1975 Planned Disposition: Nursing Facility [facility] Cert Anticipated Discharge Date: 02/15/19 Discharge Date: Expected LOS: 1 Initial Reviewer: [email or web address] Initial Review Date: 02/14/2019 Generated: 02/15/19 4:05 pm Comments DCP- Discharge Planning Updated by [email or web address]: Jared Kirk on 02/15/19 2:[address] Patient Name: SAUL MCNALLY Encounter No: [id number] : 1975 Primary Insurance: MEDICARE A & B Anticipated DC Date: 02-15-2019 Planned Disposition: Nursing Facility [facility] Cert External Planned Provider: NIECY AGUAYO TOBACCO CONDITIONER CARE MEDICAID BED DCP follow-up note: EVITA SPOKE TO CISCO MOSER WHO INFORMED CM THAT PT WILL DISCHARGE BACK TO [facility] AFTER DIALYSIS TODAY. EVITA MET WITH PT IN ROOM WHO REPORTS AGREEMENT WITH PLAN TO RETURN HOME TO NIECY MANKIANNA. CM FAXED DISCHARGE INFORMATION TO NIECY HO[place]ERKIANNA AT [phone]. CM CALLED [facility]ECY AGUAYO, , SPOKE TO [facility]RA WHO REPORTS THEY WILL ACCEPT BACK AND CAN ARRANGE TRANSPORTATION. NURSE REPORT TO BE CALLED TO JACLYN. EVITA EXPLAINED THAT PT HAS NOT YET HAD DIALYSIS AND EVITA HAS BEEN UNABLE TO DETERMINE WHAT TIME PT WILL BE COMPLETED WITH DIALYSIS AT THIS TIME. NURSE REPORT TO BE CALLED TO JACLYN OF NIECY AGUAYO AT [phone]; NIECY AGUAYO WILL NEED TO BE NOTIFIED OF ANTICIPATED TIME THAT PT WILL BE COMPLETED WITH DILAYSIS AND READY FOR VAN DAM TENDER TODAY. Jared Kirk, CASE MANAGEMENT Appended by Jared Kirk on 02/15/2019 15:00 CDT: EVITA ADVISED BY EXECUTIVE SALES ASSISTANT NURSE PT WILL TRANSPORT VIA AMBULANCE. NURSE REPORT TO BE CALLED TO [facility] AT [phone]. Jared Kirk, CASE MANAGEMENT DCP- Discharge Planning Updated by [email or web address]: Amna Agustin on 02/14/19 11:[address] Patient Name: SAUL MCNALLY Admission Status: ER Accout number: [id number] Admission Date: 02-14-2019 : 1975 Admission Diagnosis: Attending: GABI GUTIERREZ Current LOS: 1 Anticipated DC Date: 02-16-2019 Planned Disposition: Assisted Facility - [facility] [phone] Primary Insurance: MEDICARE A & B Discharge Planning Comments: CM met with patient to complete initial dc planning assessment. CM educated patient on the CM role and verbal consent given by patient to complete assessment. Patient reports she is a resident at [facility]. Phone number: [phone]. The patient goes to hemodialysis on via transportation from [facility]. Her District Home Economics Agent is Dr. Dr. Hernandez. The patient's dc plan is to return to the half-way and feels this is a safe dc plan. Patient denied known discharge needs at this time. CM will continue to follow and will assist as needed with dc plans/needs. Manager Ship: Amna Agustin RN, [facility] DCPIA - Discharge Planning Initial Assessment Updated by [email or web address]: Amna Agustin on 02/14/19 12:09 pm * Is the patient Alert and Oriented? Yes * How many steps to enter\exit or inside your home? None * PCP Group Home Physician and Dr. Hernandez * Pharmacy [facility] * Preadmission Environment Assisted Facility * Facility Name [facility] - [phone] * ADLs Partial Dependent * Partial ADLs (Assistance needed) Ambulation Bathing Dressing Medication Management Toileting Transfers * Equipment Wheelchair * Other Equipment Patient is not able to ambulate and reports she is able to sit up in wc. She is also able to feed herself. * List name and contact numbers for known caregivers / representatives who currently or will assist patient after discharge: Cristi Mcnally - mónicaer - [phone] * Verbal permission to speak to the caregivers and representatives has been obtained from the patient. Yes * Community resources currently utilized None * Additional services required to return to the preadmission environment? No * Can the patient safely return to the preadmission environment? Yes * Has this patient been hospitalized within the prior 30 days at any hospital? No Last DP export: 02/15/19 12:29 p Patient Name: SAUL MCNALLY Page 02690 at 1505 All edits/amendments must be made on the electronic document DICTATION DATE: 02/15/19 150 CLAIM MANAGER: LENORE 02/15/19 150 RPT#: [id number] DC DATE: STATUS: ADM IN [facility] [address] [place] [address] END OF REPORT
[2019-02-15] MEDS ORDERED: MUPIROCIN22 GM TOPICAL (15:12)
[2019-02-15] MEDS ORDERED: CLOTRIMAZOLE-BE30 ML TOPICAL (15:12)
[2019-02-15] MEDS ORDERED: ELIQUIS2.5 MG PO (15:18)
--- NOTE | 2019-02-15 16:13 | MORECARE ---
CASE MANAGEMENT DISCHARGE SUMMARY PATIENT: SAUL MCNALLY UNIT: [id number] ADM DATE: 02/14/19 AGE: 43 : 77 SEX: F ROOM/BED: D.2132 AUTHOR: POWER,DOC PHYSICIAN: REFERRING PHYSICIAN: GBAI GUTIERREZ MD DATE OF SERVICE: 02/15/19 Discharge Plan Patient Name: SAUL MCNALLY Facility: [facility] : 1975 Planned Disposition: Nursing Facility [facility] Cert Anticipated Discharge Date: 02/15/19 Discharge Date: Expected LOS: 1 Initial Reviewer: [email or web address] Initial Review Date: 02/14/2019 Generated: 02/15/19 5:13 pm Comments DCP- Discharge Planning Updated by [email or web address]: Jared Kirk on 02/15/19 3:[address] Patient Name: SAUL MCNALLY Encounter No: [id number] : 1975 Primary Insurance: MEDICARE A & B Anticipated DC Date: 02-15-2019 Planned Disposition: Nursing Facility [facility] Cert External Planned Provider: NIECY AGUAYO MANAGER ERP CARE MEDICAID BED DCP follow-up note: EVITA SPOKE TO CISCO MOSER WHO INFORMED CM THAT PT WILL DISCHARGE BACK TO [facility] AFTER DIALYSIS TODAY. EVITA MET WITH PT IN ROOM WHO REPORTS AGREEMENT WITH PLAN TO RETURN HOME TO NIECY MANKIANNA. CM FAXED DISCHARGE INFORMATION TO [facility]ECY [place] AT [phone]. CM CALLED [facility]ECY AGUAYO, , SPOKE TO [facility]RA WHO REPORTS THEY WILL ACCEPT BACK AND CAN ARRANGE TRANSPORTATION. NURSE REPORT TO BE CALLED TO JACLYN. EVITA EXPLAINED THAT PT HAS NOT YET HAD DIALYSIS AND EVITA HAS BEEN UNABLE TO DETERMINE WHAT TIME PT WILL BE COMPLETED WITH DIALYSIS AT THIS TIME. NURSE REPORT TO BE CALLED TO JACLYN OF NIECY AGUAYO AT [phone]; NIECY AGUAYO WILL NEED TO BE NOTIFIED OF ANTICIPATED TIME THAT PT WILL BE COMPLETED WITH DILAYSIS AND READY FOR VAN BRIMMER BLOCKER TODAY. Jared Kirk, CASE MANAGEMENT Appended by Jared Kirk on 02/15/2019 15:00 CDT: EVITA ADVISED BY GAS PUMPING STATION OPERATOR NURSE PT WILL TRANSPORT VIA AMBULANCE. NURSE REPORT TO BE CALLED TO JACLYN [facility] AT [phone]. Jared Kirk, CASE MANAGEMENT Appended by Jared Kirk on 02/15/2019 16:05 CDT: CM RECEIVED AND FAXED UPDATED MEDICATION LIST TO [facility], CALLED AND NOTIFIED JACLYN [facility] NURSE, OF UPATED MEDICATION LIST. NURSE REPORT TO BE CALLED TO [facility] AT [phone]. PT TO TRANSPORT VIA AMBULANCE. Jared Kirk, CASE MANAGEMENT DCP- Discharge Planning Updated by [email or web address]: Amna Agustin on 02/14/19 11:[address] Patient Name: SAUL MCNALLY Admission Status: ER Accout number: [id number] Admission Date: 02-14-2019 : 1975 Admission Diagnosis: Attending: GABI GUTIERREZ Current LOS: 1 Anticipated DC Date: 02-16-2019 Planned Disposition: Long-Term Facility - [facility] [phone] Primary Insurance: MEDICARE A & B Discharge Planning Comments: CM met with patient to complete initial dc planning assessment. CM educated patient on the CM role and verbal consent given by patient to complete assessment. Patient reports she is a resident at [facility]. Phone number: [phone]. The patient goes to hemodialysis on via transportation from [facility]. Her Business Controller is Dr. Dr. Hernandez. The patient's dc plan is to return to the fdc and feels this is a safe dc plan. Patient denied known discharge needs at this time. CM will continue to follow and will assist as needed with dc plans/needs. Field Care Manager: Amna Agustin RN, [facility] DCPIA - Discharge Planning Initial Assessment Updated by [email or web address]: Amna Agustin on 02/14/19 12:09 pm * Is the patient Alert and Oriented? Yes * How many steps to enter\exit or inside your home? None * PCP Alf Physician and Dr. Hernandez * Pharmacy [facility] * Preadmission Environment Long-Term Facility * Facility Name [facility] - [phone] * ADLs Partial Dependent * Partial ADLs (Assistance needed) Ambulation Bathing Dressing Medication Management Toileting Transfers * Equipment Wheelchair * Other Equipment Patient is not able to ambulate and reports she is able to sit up in wc. She is also able to feed herself. * List name and contact numbers for known caregivers / representatives who currently or will assist patient after discharge: Cristi Mcnally - brother - [phone] * Verbal permission to speak to the caregivers and representatives has been obtained from the patient. Yes * Community resources currently utilized None * Additional services required to return to the preadmission environment? No * Can the patient safely return to the preadmission environment? Yes * Has this patient been hospitalized within the prior 30 days at any hospital? No Last DP export: 02/15/19 2:05 p Patient Name: SAUL MCNALLY Page 00800 at 1613 All edits/amendments must be made on the electronic document DICTATION DATE: 02/15/191612 WEAVING MACHINE OPERATOR: LENORE 02/15/191612 RPT#: [id number] DC DATE: STATUS: ADM IN [facility] [address] [place] [address] END OF REPORT
--- NOTE | 2019-02-15 17:02 | MORECARE ---
CASE MANAGEMENT DISCHARGE SUMMARY PATIENT: SAUL MCNALLY UNIT: [id number] ADM DATE: 02/14/19 AGE: 43 : [birth year] SEX: F ROOM/BED: D.2132 AUTHOR: POWER,DOC PHYSICIAN: REFERRING PHYSICIAN: GABI GUTIERREZ MD DATE OF SERVICE: 02/15/19 Discharge Plan Patient Name: SAUL MCNALLY Facility: [facility] : 1975 Planned Disposition: Nursing Facility [facility] Cert Anticipated Discharge Date: 02/15/19 Discharge Date: Expected LOS: 1 Initial Reviewer: [email or web address] Initial Review Date: 02/14/2019 Generated: 02/15/19 6:01 pm Comments DCP- Discharge Planning Updated by [email or web address]: Jared Kirk on 02/15/19 3:[address] Patient Name: SAUL MCNALLY Encounter No: [id number] : 1975 Primary Insurance: MEDICARE A & B Anticipated DC Date: 02-15-2019 Planned Disposition: Nursing Facility [facility] Cert External Planned Provider: NIECY AGUAYO STEEL INSPECTOR CARE MEDICAID BED DCP follow-up note: EVITA SPOKE TO CISCO MOSER WHO INFORMED CM THAT PT WILL DISCHARGE BACK TO [facility] AFTER DIALYSIS TODAY. EVITA MET WITH PT IN ROOM WHO REPORTS AGREEMENT WITH PLAN TO RETURN HOME TO NIECY MANKIANNA. CM FAXED DISCHARGE INFORMATION TO NIECY ANDALEKIANNA AT [phone]. CM CALLED NIECY AGUAYO, , SPOKE TO [facility]RA WHO REPORTS THEY WILL ACCEPT BACK AND CAN ARRANGE TRANSPORTATION. NURSE REPORT TO BE CALLED TO JACLYN. EVITA EXPLAINED THAT PT HAS NOT YET HAD DIALYSIS AND EVITA HAS BEEN UNABLE TO DETERMINE WHAT TIME PT WILL BE COMPLETED WITH DIALYSIS AT THIS TIME. NURSE REPORT TO BE CALLED TO JACLYN OF NIECY AGUAYO AT [phone]; NIECY AGUAYO WILL NEED TO BE NOTIFIED OF ANTICIPATED TIME THAT PT WILL BE COMPLETED WITH DILAYSIS AND READY FOR VAN SAFETY TEACHER TODAY. Jared Kirk, CASE MANAGEMENT Appended by Jared Kirk on 02/15/2019 15:00 CDT: EVITA ADVISED BY GENERAL INTERNAL MEDICINE PHYSICIAN NURSE PT WILL TRANSPORT VIA AMBULANCE. NURSE REPORT TO BE CALLED TO JACLYN [facility] AT [phone]. Jared Kirk, CASE MANAGEMENT Appended by Jared Kirk on 02/15/2019 16:05 CDT: CM RECEIVED AND FAXED UPDATED MEDICATION LIST TO [facility], CALLED AND NOTIFIED JACLYN [facility] NURSE, OF UPATED MEDICATION LIST. NURSE REPORT TO BE CALLED TO [facility] AT [phone]. PT TO TRANSPORT VIA AMBULANCE. Jared Kirk, CASE MANAGEMENT DCP- Discharge Planning Updated by [email or web address]: Amna Agustin on 02/14/19 11:[address] Patient Name: SAUL MCNALLY Admission Status: ER Accout number: [id number] Admission Date: 02-14-2019 : 1975 Admission Diagnosis: Attending: GABI GUTIERREZ Current LOS: 1 Anticipated DC Date: 02-16-2019 Planned Disposition: Intermediate Facility - [facility] [phone] Primary Insurance: MEDICARE A & B Discharge Planning Comments: CM met with patient to complete initial dc planning assessment. CM educated patient on the CM role and verbal consent given by patient to complete assessment. Patient reports she is a resident at [facility]. Phone number: [phone]. The patient goes to hemodialysis on via transportation from [facility]. Her Test Director is Dr. Dr. Hernandez. The patient's dc plan is to return to the fdc and feels this is a safe dc plan. Patient denied known discharge needs at this time. CM will continue to follow and will assist as needed with dc plans/needs. Plastic Surgery Technician: Amna Agustin RN, [facility] DCPIA - Discharge Planning Initial Assessment Updated by [email or web address]: Amna Agustin on 02/14/19 12:09 pm * Is the patient Alert and Oriented? Yes * How many steps to enter\exit or inside your home? None * PCP Alf Physician and Dr. Hernandez * Pharmacy [facility] * Preadmission Environment Intermediate Facility * Facility Name [facility] - [phone] * ADLs Partial Dependent * Partial ADLs (Assistance needed) Ambulation Bathing Dressing Medication Management Toileting Transfers * Equipment Wheelchair * Other Equipment Patient is not able to ambulate and reports she is able to sit up in wc. She is also able to feed herself. * List name and contact numbers for known caregivers / representatives who currently or will assist patient after discharge: Cristi Mcnally - brother - [phone] * Verbal permission to speak to the caregivers and representatives has been obtained from the patient. Yes * Community resources currently utilized None * Additional services required to return to the preadmission environment? No * Can the patient safely return to the preadmission environment? Yes * Has this patient been hospitalized within the prior 30 days at any hospital? No Last DP export: 02/15/19 3:13 p Patient Name: SAUL MCNALLY Page 35441 at 1702 All edits/amendments must be made on the electronic document DICTATION DATE: 02/15/191700 NETWORK ASSOCIATE: LENORE 02/15/191700 RPT#: [id number] DC DATE: STATUS: ADM IN [facility] [address] [place] [address] END OF REPORT
--- NOTE | 2019-02-15 17:20 | NUR ---
CALLED REPORT TO [facility] NURSE JACLYN. CALLED AMBULANCE ([facility]), THEY STATED IT WOULD BE ABOUT AN HOUR OR SO BEFORE THEY COULD PICK HER UP. PT COMING BACK FROM [facility] NOW.
--- NOTE | 2019-02-15 18:42 | NUR ---
PT D/C, LEFT WITH AMBULANCE BACK TO FACILITY. . IV OUT, TIP INTACT.
== END 2019-02-15 18:43 | DRG 252 ==
LOC: D.ER 09:10 → D.EDHOLD 11:26 → D.M2 13:08
PROVIDERS: Emergency Medicine; Surgery; ADMIT Internal Medicine Nephrology; ATTEND Internal Medicine Nephrology
PROC: 03783ZZ Dilation of Left Brachial Artery, Percutaneous Approach (ICD-10-PCS; 2019-02-14)
PROC: B51W1ZZ Fluoroscopy of Dialysis Shunt/Fistula using Low Osmolar Contrast (ICD-10-PCS; 2019-02-14)
PROC: 03C83ZZ Extirpation of Matter from Left Brachial Artery, Percutaneous Approach (ICD-10-PCS; principal; 2019-02-14 14:15)
PROC: 5A1D70Z Performance of Urinary Filtration, Intermittent, Less than 6 Hours Per Day (ICD-10-PCS; 2019-02-15)
DX: T82.868A Thrombosis due to vascular prosthetic devices, implants and grafts, initial encounter (principal); N18.6 End stage renal disease; I12.0 Hypertensive chronic kidney disease with stage 5 chronic kidney disease or end stage renal disease; D68.59 Other primary thrombophilia; Y83.8 Other surgical procedures as the cause of abnormal reaction of the patient, or of later complication, without mention of misadventure at the time of the procedure; E11.22 Type 2 diabetes mellitus with diabetic chronic kidney disease; E11.65 Type 2 diabetes mellitus with hyperglycemia; Z99.2 Dependence on renal dialysis; E66.01 Morbid (severe) obesity due to excess calories; Z68.38 Body mass index [BMI] 38.0-38.9, adult; Z86.73 Personal history of transient ischemic attack (TIA), and cerebral infarction without residual deficits

== ENCOUNTER 2019-02-14 09:10 | Outpatient (CLI) | payer MEDICARE ==
[2019-02-14 13:38] VITALS: BMI 38.4
[2019-02-14] MEDS ORDERED: PROCRIT/EP10000 UNIT SQ (15:15)
[2019-02-15] MEDS ORDERED: VIBRAMYCIN50 MG PO (12:30)
[2019-02-15] MEDS ORDERED: BETADINE NASAL (12:38)
[2019-02-15] MEDS ORDERED: CLOTRIMAZOLE-BE30 ML TOPICAL (15:12)
[2019-02-15] MEDS ORDERED: MUPIROCIN22 GM TOPICAL (15:12)
[2019-02-15] MEDS ORDERED: ELIQUIS2.5 MG PO (15:18)
== END 2019-02-14 11:26 | disposition other institution (70) ==
LOC: D.OPS 09:10
PROVIDERS: ATTEND Internal Medicine Nephrology
DX: N18.6 End stage renal disease (principal)

== ENCOUNTER 2019-05-20 01:58 | Inpatient (IN) | payer MEDICARE ==
[~2019-05-20 01:58] MED LIST changes: +BETADINE NASAL; +CLOTRIMAZOLE-BE30 ML TOPICAL; +ELIQUIS2.5 MG PO; +MUPIROCIN22 GM TOPICAL
[2019-05-20] MEDS ORDERED: SODIUM BICARBO650 MG PO (02:11)
[2019-05-20] MEDS ORDERED: FOLIC ACID1 MG PO (02:14)
[2019-05-20 02:49] LABS: BASOPHILS 0.8 % (0-2); EOSINOPHILS 2.8 % (0-7); HEMATOCRIT 29.1 % (36.0-48.0); HEMOGLOBIN 9.5 g/dL (12-16); IMMATURE GRANULOCYTES 0.2 % (0-5); LYMPHOCYTES 15.8 % (15-50); MCH 33.6 pg (26.0-34.0); MCHC 32.6 g/dL (31.0-37.0); MCV 102.8 fL (80.0-100.0); MEAN PLATELET VOLUME 11.5 fL (7.4-10.4); MONOCYTES 4.1 % (2-11); NEUTROPHILS 76.3 % (40-80); RBC 2.83 10x6/uL (4.00-5.40); RDW 15.7 % (11.5-14.5); WBC 8.9 10x3/uL (4.8-10.8)
[2019-05-20 02:55] LABS: PLATELET COUNT 312 10x3/uL (130-400)
--- NOTE | 2019-05-20 03:00 | NUR ---
IV STARTED TO RIGHT THUMB AFTER NUMEROUS ATTEMPTS. PT TOLERATED WELL.
[2019-05-20 03:04] LABS: APTT 23.7 SECONDS (22.8-39.4); INR 1.11 (0.85-1.17); PROTIME 13.8 SECONDS (11.6-15.0)
[2019-05-20 03:15] LABS: ALBUMIN 3.4 g/dL (3.4-5.0); BILIRUBIN - TOTAL 0.39 mg/dL (0.2-1.3); CALCIUM 8.2 mg/dL (8.5-10.1); CARBON DIOXIDE 24.6 mmol/L (21.0-32.0); PROTEIN - SERUM 7.3 g/dL (6.4-8.2); TROPONIN-I 0.027 ng/mL (0.000-0.060)
[2019-05-20 03:19] LABS: ANION GAP 20.7 mmol/L (8-16); POTASSIUM - SERUM 7.3 mmol/L (3.5-5.1)
[2019-05-20 04:00] VITALS: BP 193/73
--- NOTE | 2019-05-20 04:24 | NUR ---
RECEIVED FROM ER, VITALS ARE STABLE, PT IS A&O, BEDFAST, BED IS LOW, SRX2, CALL LIGHT IN REACH, WILL CONTINUE PLAN OF CARE
[2019-05-20 04:38] VITALS: BP 193/73; BMI 41.9
[2019-05-20] MEDS ORDERED: PHOSLO667 MG PO (05:01)
[2019-05-20] MEDS ORDERED: ELIQUIS2.5 MG PO (05:03)
--- NOTE | 2019-05-20 07:10 | NUR ---
REPORT RECEIVED FROM TOOL GRINDING MACHINE OPERATOR AND PATIENT CARE ASSUMED. PATIENT LAYING ON LT SIDE WITH EYS CLOSED AND BREATHING EVENLY. PATIENT IS STABLE AND VSS. PATIENT IS NPO AWAITING AV FISTULA REVISION. CONSENTS OBTAINED AND SUGNED. PATIENT DENIES ANY NEEDS OR PAIN. WILL CONTINUE WITH PLAN OF CARE. SR UP X 2 BED IN LOW POSTION AND CALL LIGHT IN REACH.
--- NOTE | 2019-05-20 08:30 | NUR ---
PATIENT IS STABLE AND VSS. PATIENT REOP PER MAR ORDERS. PATIENT TO SURGERY PER SURGERY TEAM.
--- NOTE | 2019-05-20 11:12 | NUR ---
PATIENT BEING DC FROM RECOVERY AND GOING ON INTO DIALYSIS.
[2019-05-20 14:05] VITALS: BMI 41.8
--- NOTE | 2019-05-20 16:06 | NUR ---
PATIENT RETURNED FROM SURGERY AND DIALYSIS. PATIENT IS STABLE AND VSS. LEFT UA DRSG C/D/I. PATIENT LUNCH WARMED AND PATIENT EATING. PATIENT IS AWAKE, ALERT AND ORIENTED X 4. PATIENT DENIES ANY NEEDS OR PAIN. WILL CONTINUE WITH PLAN OF CARE.
[2019-05-20 16:30] VITALS: BP 100/47
[2019-05-20 17:46] LABS: HEMATOCRIT 28.8 % (36.0-48.0); HEMOGLOBIN 9.2 g/dL (12-16); MCH 33.1 pg (26.0-34.0); MCHC 31.9 g/dL (31.0-37.0); MCV 103.6 fL (80.0-100.0); MEAN PLATELET VOLUME 10.2 fL (7.4-10.4); RBC 2.78 10x6/uL (4.00-5.40); RDW 15.6 % (11.5-14.5); WBC 6.7 10x3/uL (4.8-10.8)
[2019-05-20 18:31] LABS: INR 1.15 (0.85-1.17); PROTIME 14.2 SECONDS (11.6-15.0)
[2019-05-20 18:41] LABS: APTT 30.5 SECONDS (22.8-39.4)
[2019-05-20 18:48] VITALS: BP 100/47
--- NOTE | 2019-05-20 19:25 | NUR ---
PT SITTING UP IN BED WATCHING TV. CALL LIGHT IN REACH. DENIES NEEDS AT THIS TIME. BED IN LOW. SIDE RAILS X2. RESP EVEN AND UNLABORED. WILL CONTINUE TO MONITOR.
[2019-05-20 20:00] VITALS: BP 105/38
[2019-05-21] VITALS: BP 129/57
--- NOTE | 2019-05-21 00:16 | NUR ---
PT RESTING QUIETLY. CALL LIGHT IN REACH. EYES CLOSED. NO DISTRESS NOTED. RESP EVEN AND UNLABORED. CPOC
--- NOTE | 2019-05-21 00:38 | NUR ---
I have reviewed this patient and I concur with the Shift Assessment completed by the Licensed Practical Nurse today this shift.
[2019-05-21 00:42] LABS: HEMATOCRIT 25.1 % (36.0-48.0); HEMOGLOBIN 8.1 g/dL (12-16); MCH 33.3 pg (26.0-34.0); MCHC 32.3 g/dL (31.0-37.0); MCV 103.3 fL (80.0-100.0); MEAN PLATELET VOLUME 10.4 fL (7.4-10.4); RBC 2.43 10x6/uL (4.00-5.40); RDW 15.7 % (11.5-14.5); WBC 6.4 10x3/uL (4.8-10.8)
[2019-05-21 01:21] LABS: INR 1.17 (0.85-1.17); PROTIME 14.4 SECONDS (11.6-15.0)
[2019-05-21 01:24] LABS: APTT 43.9 SECONDS (22.8-39.4)
--- NOTE | 2019-05-21 01:38 | NUR ---
recieved lab for ptt which was 43.9. increased hep drip to 900units/hr. wctm
[2019-05-21 04:00] VITALS: BP 126/50
[2019-05-21 06:37] LABS: BASOPHILS 0.5 % (0-2); EOSINOPHILS 3.9 % (0-7); HEMATOCRIT 25.8 % (36.0-48.0); HEMOGLOBIN 8.2 g/dL (12-16); IMMATURE GRANULOCYTES 0.2 % (0-5); LYMPHOCYTES 26.9 % (15-50); MCH 33.1 pg (26.0-34.0); MCHC 31.8 g/dL (31.0-37.0); MEAN PLATELET VOLUME 10.8 fL (7.4-10.4); MONOCYTES 8.6 % (2-11); NEUTROPHILS 59.9 % (40-80); PLATELET COUNT 195 10x3/uL (130-400); RBC 2.48 10x6/uL (4.00-5.40); WBC 6.6 10x3/uL (4.8-10.8)
[2019-05-21 06:53] LABS: ALBUMIN 2.8 g/dL (3.4-5.0); ANION GAP 15.6 mmol/L (8-16); BILIRUBIN - TOTAL 0.5 mg/dL (0.2-1.3); CALCIUM 7.6 mg/dL (8.5-10.1); CARBON DIOXIDE 27.6 mmol/L (21.0-32.0); MAGNESIUM - SERUM 1.6 mg/dL (1.8-2.4); POTASSIUM - SERUM 5.2 mmol/L (3.5-5.1); PROTEIN - SERUM 6.8 g/dL (6.4-8.2)
[2019-05-21 06:56] LABS: CREATININE - SERUM 9.6 mg/dL (0.6-1.3)
--- NOTE | 2019-05-21 07:10 | NUR ---
ALERT AND ORIENTED X4. PREOP COMPLETE FOR PROCEDURE. TAKE TO PROCEDURE VIA BED. HEPARIN CONTINUE INFUSION PER HEPARIN PROTOCOL. CONTINUE PLAN OF CARE AND SAFETY PRECAUTIONS.
[2019-05-21 11:30] VITALS: BP 137/58
[2019-05-21 12:35] VITALS: BP 136/57
--- NOTE | 2019-05-21 12:46 | NUR ---
ARRIVE BACK TO ROOM VIA BED FROM PROCEDURE. ALERT AND ORIENTED X4. LT GROIN HEMOSPLIT SCANT BLOOD. DRESSING INTACT. PRESSURE DRESSING APPLIED TO LT GROIN. THRILL AND BRUIT PRESENT ON LT ARM. LT ARM ELEVATED ON PILLOW. BP-137/58, T-97.8, HR-80 SINUS RHYTHM, O2-98% WITH 2L NC. CONTINUE PLAN OF CARE AND SAFETY PRECAUTIONS.
--- NOTE | 2019-05-21 14:21 | NUR ---
ALERT AND ORIENTED X4. SITTING UP IN BED. NORCO ADMINISTERED ORDERED FOR LT ARM AND LT GROIN PAIN. PHENERGAN ADMINISTERED IM ORDERED FOR NAUSEA AND VOMITING. CALL BENI WITH DIALYSIS REGARDING TIME TREATMENT PLANNED. BENI DENIES BEING ON LIST. NOTIFY CISCO REYES ORDERED DIALYSIS TODAY. CISCO REYES STATES,"NOTIFY DIALYSIS NURSE, I'M NOT SURE WHAT TIME SHE WILL BE DONE THOUGH." REPORT TO DIALYSIS UNIT ORDER FOR DIALYSIS TODAY ACTIVE. CONTINUE PLAN OF CARE AND SAFETY PRECAUTIONS.
--- NOTE | 2019-05-21 14:53 | NUR ---
TAKEN TO DIALYSIS VIA BED. CONTINUE PLAN OF CARE AND SAFETY PRECAUTIONS.
--- NOTE | 2019-05-21 17:15 | NUR ---
STILL IN DIALYSIS. WILL GIVE MEDICATIONS UPON RETURNING TO ROOM.
--- NOTE | 2019-05-21 19:06 | NUR ---
PT IN BED. DENIES NEEDS AT THIS TIME.
[2019-05-21 20:00] VITALS: BP 118/61
[2019-05-22] VITALS: BP 102/42
[2019-05-22 04:00] VITALS: BP 110/40
[2019-05-22 07:03] LABS: BASOPHILS 0.6 % (0-2); EOSINOPHILS 4.4 % (0-7); HEMATOCRIT 23.7 % (36.0-48.0); IMMATURE GRANULOCYTES 0.3 % (0-5); LYMPHOCYTES 19.8 % (15-50); MCH 32.6 pg (26.0-34.0); MCHC 31.2 g/dL (31.0-37.0); MCV 104.4 fL (80.0-100.0); MEAN PLATELET VOLUME 10.9 fL (7.4-10.4); MONOCYTES 8.6 % (2-11); NEUTROPHILS 66.3 % (40-80); PLATELET COUNT 166 10x3/uL (130-400); RBC 2.27 10x6/uL (4.00-5.40); WBC 6.8 10x3/uL (4.8-10.8)
[2019-05-22 07:06] LABS: HEMOGLOBIN 7.4 g/dL (12-16)
--- NOTE | 2019-05-22 07:25 | NUR ---
REPORT RECEIVED FROM PACU RN AND PATIENT CARE ASSUMED. PATIENT LAYING IN BED ON BACK WITH EYES CLOSED AND BREATHING EVENLY. PATIENT IS STABLE AND VSS. WILL CONTINUE WITH PLAN OF CARE. SR UP X 2 BED IN LOW POSITION AND CALL LIGHT IN REACH.
[2019-05-22 07:40] LABS: ALBUMIN 2.9 g/dL (3.4-5.0); ANION GAP 16.2 mmol/L (8-16); BILIRUBIN - TOTAL 0.37 mg/dL (0.2-1.3); CARBON DIOXIDE 26.4 mmol/L (21.0-32.0); CREATININE - SERUM 7.5 mg/dL (0.6-1.3); MAGNESIUM - SERUM 1.6 mg/dL (1.8-2.4); POTASSIUM - SERUM 4.6 mmol/L (3.5-5.1); PROTEIN - SERUM 6.5 g/dL (6.4-8.2); VANCOMYCIN - RANDOM 16.9 ug/mL (10.0-20.0)
[2019-05-22 09:14] LABS: HEPATITIS C ANTIBODY <0.1 S/CO RAT (0.0-0.9)
--- NOTE | 2019-05-22 09:26 | NUR ---
PATIENT LAYING IN BED ON BACK AWAKE, ALERT AND ORIENTED X4. PATIENT STATES THAT SHE DID NOT SLEEP WELL LAST PM AND JUST WANTS TO GO BACK TO SLEEP. ASSESSMENT COMPLETED. RT GROIN DRSG WITH SMALL AMOUNT DARK, DRIED BLOOD AND INTACT. NO BRUISING, BLEEDING, OR HEMATOMA NOTE4D. PATIENT IS STABLE AND VSS. WILL CONTINUE TO MONITOR. SR UP X 2 BED IN LOW POSTION AND CALL LIGHT IN REACH.
[2019-05-22 09:47] VITALS: BP 127/58
--- NOTE | 2019-05-22 12:45 | NUR ---
ORDER RECEIVED FOR ONE UNIT BLOOD. ALL SAFETY PRECAUTIONS FOLLOWED. PREOP VS AND TEMP WNL. TRANFUSION STARTED AT 50 CC. AFTER 15 MINUTES, VSS AND PATIENT DENIES ANY NEEDS OR PAIN. INFUSION INCREASEED TO 100 ML/HR. WILL CONTINUE TO MONITOR. SR UP X 2 BED IN LOW POSITION AND CALL LIGHT IN REACH.
[2019-05-22] MEDS ORDERED: PLAVIX75 MG PO (12:56)
--- NOTE | 2019-05-22 14:33 | NUR ---
SPOKE WITH CISCO RICO. PER DR GAGNON NOTE, PATIENT TO RE-START ELIQUIS IN AM AND NOT TAKE PLAVIX.
--- NOTE | 2019-05-22 15:09 | MORECARE ---
CASE MANAGEMENT DISCHARGE SUMMARY PATIENT: SAUL MCNALLY UNIT: [id number] ADM DATE: 05/20/19 AGE: 43 : 77 SEX: F ROOM/BED: D.[facility] AUTHOR: DARRIN STEVE PHYSICIAN: REFERRING PHYSICIAN: TEAGAN DHILLON MD DATE OF SERVICE: 05/22/19 Discharge Plan Patient Name: SAUL MCNALLY Facility: [facility]:[place] : 1975 Planned Disposition: Nursing Facility [facility] Cert Anticipated Discharge Date: 05/22/19 Discharge Date: Expected LOS: 2 Initial Reviewer: [id number] Initial Review Date: 05/22/2019 Generated: 05/22/19 4:08 pm External Providers External Provider: [facility] Next Contact Date: 05/22/2019 Service Request Date: Service Type: Resolution: Reviewer: Comments: Coverage Notice Reviewer: BLAINE Kirk Notice Issued Date-Time: 05/22/2019 13:20 Notice Type: IM Discharge Notice Notice Delivered To: Patient Relationship to Patient: Vice Admiral Name: Delivery Method: HAND - Hand Delivered Cleo Days: Prior Verbal Notification: Recipient Understood Notice: Yes Recipient Signature: Yes Med Rec Note Co-signed by Attending: Coverage Notice Comment: Reviewer: BLAINE Kirk Notice Issued Date-Time: 05/22/2019 13:20 Notice Type: Patient Choice Letter Notice Delivered To: Patient Relationship to Patient: Vice Admiral Name: Delivery Method: HAND - Hand Delivered Cleo Days: Prior Verbal Notification: Recipient Understood Notice: Yes Recipient Signature: Yes Med Rec Note Co-signed by Attending: Coverage Notice Comment: NIECY COALINGAKIANNA Patient Name: SAUL MCNALLY Page [phone] at 1509 All edits/amendments must be made on the electronic document DICTATION DATE: 05/22/19 1508 DIRECTOR PROCESS: LENORE 05/22/19 1508 RPT#: [id number] DC DATE: STATUS: ADM IN [facility] [address] [place] [address] END OF REPORT
--- NOTE | 2019-05-22 15:17 | MORECARE ---
CASE MANAGEMENT DISCHARGE SUMMARY PATIENT: SAUL MCNALLY UNIT: [id number] ADM DATE: 05/20/19 AGE: 43 : 77 SEX: F ROOM/BED: D.[facility] AUTHOR: POWER,DOC PHYSICIAN: REFERRING PHYSICIAN: TEAGAN DHILLON MD DATE OF SERVICE: 05/22/19 Discharge Plan Patient Name: SAUL MCNALLY Facility: [facility]:[place] : 1975 Planned Disposition: Nursing Facility [facility] Cert Anticipated Discharge Date: 05/22/19 Discharge Date: Expected LOS: 2 Initial Reviewer: BLAINE Initial Review Date: 05/22/2019 Generated: 05/22/19 4:16 pm DCPIA - Discharge Planning Initial Assessment Updated by BLAINE: Jared Kirk on 05/22/19 3:11 pm * Is the patient Alert and Oriented? Yes * How many steps to enter\exit or inside your home? NONE * PCP DR OSUNA * Pharmacy [facility] * Preadmission Environment Apprentice Architect Prison * Facility Name [facility] * ADLs Partial Dependent * Partial ADLs (Assistance needed) Ambulation Bathing Medication Management Transfers * Equipment Other * Other Equipment ALL MEDICAL EQUIPMENT PROVIDED BY FACILITY * List name and contact numbers for known caregivers / representatives who currently or will assist patient after discharge: PREM MCNALLYPABLO, * Verbal permission to speak to the caregivers and representatives has been obtained from the patient. N/A * Community resources currently utilized Other * Please name any agencies selected above. [facility], [facility], [facility], [facility], [facility] * Additional services required to return to the preadmission environment? No * Can the patient safely return to the preadmission environment? Yes * Has this patient been hospitalized within the prior 30 days at any hospital? Yes Coverage Notice Reviewer: BLAINE Kirk Notice Issued Date-Time: 05/22/2019 13:20 Notice Type: IM Discharge Notice Notice Delivered To: Patient Relationship to Patient: Senior Care Manager Name: Delivery Method: HAND - Hand Delivered Cleo Days: Prior Verbal Notification: Recipient Understood Notice: Yes Recipient Signature: Yes Med Rec Note Co-signed by Attending: Coverage Notice Comment: Reviewer: BLAINE Gandhiwell Notice Issued Date-Time: 05/22/2019 13:20 Notice Type: Patient Choice Letter Notice Delivered To: Patient Relationship to Patient: Senior Care Manager Name: Delivery Method: HAND - Hand Delivered Cleo Days: Prior Verbal Notification: Recipient Understood Notice: Yes Recipient Signature: Yes Med Rec Note Co-signed by Attending: Coverage Notice Comment: NIECY OSCARKIANNA [place] DP export: 05/22/19 2:08 p Patient Name: SAUL MCNALLY Page [phone] at 1517 All edits/amendments must be made on the electronic document DICTATION DATE: 05/22/19 1516 LEAD CASHIER: LENORE 05/22/19 1516 RPT#: [id number] [place] DATE: STATUS: ADM IN [facility] [address] [place] [address] END OF REPORT
--- NOTE | 2019-05-22 15:24 | MORECARE ---
CASE MANAGEMENT DISCHARGE SUMMARY PATIENT: SAUL MCNALLY UNIT: [id number] ADM DATE: 05/20/19 AGE: 43 : 77 SEX: F ROOM/BED: D.2132 AUTHOR: POWER,DOC PHYSICIAN: REFERRING PHYSICIAN: TEAGAN DHILLON MD DATE OF SERVICE: 05/22/19 Discharge Plan Patient Name: SAUL MCNALLY Facility: [facility] : 1975 Planned Disposition: Nursing Facility [facility] Cert Anticipated Discharge Date: 05/22/19 Discharge Date: Expected LOS: 2 Initial Reviewer: [email or web address] Initial Review Date: 05/22/2019 Generated: 05/22/19 4:24 pm Comments DCP- Discharge Planning Updated by [email or web address]: Jared Kirk on 05/22/19 2:[address] Patient Name: SAUL MCNALLY Encounter No: [id number] : 1975 Primary Insurance: MEDICARE A & B Anticipated DC Date: 05-22-2019 Planned Disposition: Nursing Facility [facility] Cert External Planned Provider: [facility], LONG TERM CARE MEDICAID BED DCP follow-up note: CM RECEIVED DISCHARGE ORDER, SPOKE TO PT IN ROOM, PT REPORTS LIVING AT [facility] AND NEEDS VAN TO RETURN "HOME" TO [facility] TODAY. CHOICE SIGNED. IMPORTANT MESSAGE FROM MEDICARE PROVIDED AND EXPLAINED. CM CALLED AND SPOKE TO MS. OCONNOR AT [facility], , NOTIFIED OF DISCHARGE AND NEED FOR VAN GRAPHIC ART DESIGNER. MS. OCONNOR ASKED FOR UPDATE TO BE FAXED AND THE FACILITY WILL CALL CM SHORTLY. CM FAXED UDPATE AND DISCHARGE TO [facility] AT [phone]. NURSE REPORT TO BE CALLED TO [facility] AT [phone]. [facility] TO ARRANGE VAN TRANSPORTATION. Jared Kirk CASE MANAGEMENT DCPIA - Discharge Planning Initial Assessment Updated by [id number]: Jared Kirk on 05/22/19 3:11 pm * Is the patient Alert and Oriented? Yes * How many steps to enter\\exit or inside your home? NONE * PCP DR OSUNA * [facility] * Preadmission Environment Salon Coordinator Mcfp * Facility Name [facility] * ADLs Partial Dependent * Partial ADLs (Assistance needed) Ambulation Bathing Medication Management Transfers * Equipment Other * Other Equipment ALL MEDICAL EQUIPMENT PROVIDED BY FACILITY * List name and contact numbers for known caregivers / representatives who currently or will assist patient after discharge: PREM WARNERNEGRITO, PABLO, * Verbal permission to speak to the caregivers and representatives has been obtained from the patient. N/A * Community resources currently utilized Other * Please name any agencies selected above. [facility], [facility], [facility], [facility], [facility] * Additional services required to return to the preadmission environment? No * Can the patient safely return to the preadmission environment? Yes * Has this patient been hospitalized within the prior 30 days at any hospital? Yes Coverage Notice Reviewer: [id number] Kirk Notice Issued Date-Time: 05/22/2019 13:20 Notice Type: IM Discharge Notice Notice Delivered To: Patient Relationship to Patient: Immigration Inspector Name: Delivery Method: HAND - Hand Delivered Cleo Days: Prior Verbal Notification: Recipient Understood Notice: Yes Recipient Signature: Yes Med Rec Note Co-signed by Attending: Coverage Notice Comment: Reviewer: [id number] Kirk Notice Issued Date-Time: 05/22/2019 13:20 Notice Type: Patient Choice Letter Notice Delivered To: Patient Relationship to Patient: Immigration Inspector Name: Delivery Method: HAND - Hand Delivered Cleo Days: Prior Verbal Notification: Recipient Understood Notice: Yes Recipient Signature: Yes Med Rec Note Co-signed by Attending: Coverage Notice Comment: [facility] Last DP export: 05/22/19 2:16 p Patient Name: SAUL MCNALLY Page [phone] at 1524 All edits/amendments must be made on the electronic document DICTATION DATE: 05/22/19 152 REPLANTING MACHINE CREW: LENORE 05/22/19 152 RPT#: [id number] DC DATE: STATUS: ADM IN [facility] [address] [place] [address] END OF REPORT
[2019-05-22 16:45] VITALS: BP 110/78
--- NOTE | 2019-05-22 17:00 | NUR ---
ORDER RECEIVED FOR DC. PATIENT IS STABLE AND VSS.LEFT GROIN DRSG INTACT WITH OLD BLOOD NOTED. LEFT CALF PICC LINE DC/D WITHOUT DIFFICULTY WITH CATHETER INTACT. VERBAL AND WRITTEN DC INSTRUCTIONS GIVEN . PATIENT VERBALIZED UNDERSTANDING BUT UNABLE TO SIGN DC PAPERS DUE TO S/P CVA AND WEAKNESS IN HANDS. REPORT CALLED TO [facility] AND SPOKE WITH DAMEON RAMSAY. PRESENTLY AWAITING VAN LENS FABRICATING MACHINE TENDER.
[2019-05-22 17:47] VITALS: BP 128/65
--- NOTE | 2019-05-22 19:31 | NUR ---
PT LEFT FLOOR VIA WHEELCHAIR ACCOMPANIED BY [facility]OWER REPAIRER AND [facility] STAFF
--- NOTE | 2019-05-22 19:32 | NUR ---
PT LEFT VIA VIA WHEELCHAIR. D/C TO [facility]
--- NOTE | 2019-05-23 09:56 | MORECARE ---
CASE MANAGEMENT DISCHARGE SUMMARY PATIENT: SAUL MCNALLY UNIT: [id number] ADM DATE: 05/20/19 AGE: 43 : 77 SEX: F ROOM/BED: D.2132 AUTHOR: POWER,DOC PHYSICIAN: REFERRING PHYSICIAN: TEAGAN DHILLON MD DATE OF SERVICE: 05/23/19 Discharge Plan Patient Name: SAUL MCNALLY Facility: [facility] : 1975 Planned Disposition: Nursing Facility [facility] Cert Anticipated Discharge Date: 05/22/19 Discharge Date: 05/22/2019 Expected LOS: 2 Initial Reviewer: BLAINE Initial Review Date: 05/22/2019 Generated: 05/23/19 10:56 am Comments DCP- Discharge Planning Updated by [email or web address]: Jared Kirk on 05/22/19 2:[address] Patient Name: SAUL MCNALLY Encounter No: [id number] : 1975 Primary Insurance: MEDICARE A & B Anticipated DC Date: 05-22-2019 Planned Disposition: Nursing Facility [facility] Cert External Planned Provider: [facility], LONG TERM CARE MEDICAID BED DCP follow-up note: CM RECEIVED DISCHARGE ORDER, SPOKE TO PT IN ROOM, PT REPORTS LIVING AT [facility] AND NEEDS VAN TO RETURN "HOME" TO [facility] TODAY. CHOICE SIGNED. IMPORTANT MESSAGE FROM MEDICARE PROVIDED AND EXPLAINED. CM CALLED AND SPOKE TO MS. OCONNOR AT [facility], , NOTIFIED OF DISCHARGE AND NEED FOR VAN SHUTTLE CAR OPERATOR. MS. OCONNOR ASKED FOR UPDATE TO BE FAXED AND THE FACILITY WILL CALL CM SHORTLY. CM FAXED UDPATE AND DISCHARGE TO [facility] AT [phone]. NURSE REPORT TO BE CALLED TO [facility] AT [phone]. [facility] TO ARRANGE VAN TRANSPORTATION. Jared Kirk, CASE MANAGEMENT DCPIA - Discharge Planning Initial Assessment Updated by [id number]: Jared Kirk on 05/22/19 3:11 pm * Is the patient Alert and Oriented? Yes * How many steps to enter\\exit or inside your home? NONE * PCP DR VERMOTT * Pharmacy [facility] * Preadmission Environment Commodities Trader Detention * Facility Name [facility] * ADLs Partial Dependent * Partial ADLs (Assistance needed) Ambulation Bathing Medication Management Transfers * Equipment Other * Other Equipment ALL MEDICAL EQUIPMENT PROVIDED BY FACILITY * List name and contact numbers for known caregivers / representatives who currently or will assist patient after discharge: PREM WARNERNEGRITO, PABLO, * Verbal permission to speak to the caregivers and representatives has been obtained from the patient. N/A * Community resources currently utilized Other * Please name any agencies selected above. [facility]IENT DIAL[facility]IS, [facility], [facility], [facility], [facility] * Additional services required to return to the preadmission environment? No * Can the patient safely return to the preadmission environment? Yes * Has this patient been hospitalized within the prior 30 days at any hospital? Yes Coverage Notice Reviewer: [id number] Kirk Notice Issued Date-Time: 05/22/2019 13:20 Notice Type: IM Discharge Notice Notice Delivered To: Patient Relationship to Patient: Pin Or Clip Fastener Name: Delivery Method: HAND - Hand Delivered Cleo Days: Prior Verbal Notification: Recipient Understood Notice: Yes Recipient Signature: Yes Med Rec Note Co-signed by Attending: Coverage Notice Comment: Reviewer: BLAINE Kirk Notice Issued Date-Time: 05/22/2019 13:20 Notice Type: Patient Choice Letter Notice Delivered To: Patient Relationship to Patient: Pin Or Clip Fastener Name: Delivery Method: HAND - Hand Delivered Cleo Days: Prior Verbal Notification: Recipient Understood Notice: Yes Recipient Signature: Yes Med Rec Note Co-signed by Attending: Coverage Notice Comment: [facility] Last DP export: 05/22/19 2:24 p Patient Name: SAUL MCNALLY Page [phone] at 0956 All edits/amendments must be made on the electronic document DICTATION DATE: 05/23/19955 PAROLE AGENT: LENORE 05/23/19955 RPT#: [id number] DC DATE:05/22/19 STATUS: DIS IN [facility] [address] [place] [address] END OF REPORT
--- NOTE | 2019-05-24 11:43 | OP ---
PATIENT NAME: SAUL CHACON MEDICAL RECORD: [id number] :77 LOCATION:D.M2 D.2132 ADMISSION DATE:05/20/19 SURGEON: AZALIA NIELSEN MD DATE OF OPERATION: 05/21/2019 REFERRING PHYSICIAN: Zack Aranda MD PREOPERATIVE DIAGNOSES: End-stage renal disease with impending rupture at the site of skin ulceration and repeated percutaneous cannulation of her left axillo-axillary Artegraft loop. POSTOPERATIVE DIAGNOSES: End-stage renal disease with impending rupture at the site of skin ulceration and repeated percutaneous cannulation of her left axillo-axillary Artegraft loop. OPERATION PERFORMED: Open revision without thrombectomy by insertion of a new segment of 6 mm diameter PTFE 10 cm in length replacing the excised segment of Artegraft. SURGEON: Azalia Nielsen MD ANESTHESIA: General with LMA per REGIONAL DIRECTOR OF FINANCE. PREOPERATIVE NOTE: Ms. 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 She has had numerous dialysis accesses and numerous dialysis access infections and thromboses. She has recently been dialyzing with a left arm axillo-axillary Artegraft loop and has been on Eliquis b.i.d., though she has required were several thrombectomies. She has had a stent in her venous anastomosis for some time. Only yesterday, I performed a fistulogram with AngioJet thrombolysis and dilated the recurrent stenosis within that stent and in the venous or axillary vein just proximal to the stent and then had to place a 10 cm long, 8 mm diameter Viabahn stent within the venous outflow and within the existing stent to maintain patency, that was yesterday. Today, she is returned to the operating room, so that I can excise a segment of the Artegraft which has been punctured repeatedly apparently through an area of skin ulceration and now I believe that area is infected and is impending source of massive hemorrhage. The patient had been on a heparin drip overnight and that was discontinued at the beginning of the operation. Her IV at present is in her right leg just below the knee. It is a 6-Mexican Cordis introducer sheath. DESCRIPTION OF PROCEDURE: Under general anesthesia in supine position, the patient was prepped and draped in sterile manner. Her heparin drip was discontinued. She was administered a gram of Ancef intravenously. The arterial limb of the graft was exposed through an incision placed directly over it and the graft was dissected from the surrounding structures and controlled with a vascular Silastic loop and occluded with a vascular clamp when necessary. The exposure of the graft proved to be difficult due to hemorrhage, particularly from subcutaneous veins and existing venous hypertension. I excised a thin ellipse of skin to include the area of ulceration and extended the dissection towards the venous limb as far as necessary, so that I could excise the involved segment of Artegraft and have room to perform anastomosis. The Artegraft was excised and discarded as was the overlying ellipse of skin. OPERATIVE REPORT [id number] SAUL CHACON There was no pus or purulent material or any evidence of retained infected tissue. The graft was clamped and the segment excised as I said. The graft was flushed proximally and distally with heparinized saline. At one point, I used a 4-Mexican Domenic embolectomy catheter in the venous outflow to help with hemostasis before the vascular clamp was applied. The graft was flushed with heparinized saline. A 10-cm length of 6 mm diameter Propaten standard wall PTFE was placed as an interposition graft and two end-to-end anastomosis performed with a 6-0 Prolene. After the first anastomosis, the graft was flushed with heparinized saline. The suture lines were sealed with BioGlue and were hemostatic at their completion. With release of the occluding clamps, continuous pulsatile Doppler flow was identified within the graft. The wound was closed with interrupted 3-0 Vicryl and running intracuticular 4-0 Stratafix. The wound also required a few superficial simple interrupted 4-0 Prolene sutures to approximate the skin edges. This was due to the excision of the ellipse of overlying skin. The wound was then additionally sealed and dressed with Dermabond glue and dressed with Maxorb Ag, Tegaderm and Cavilon skin prep. There is not a suitable or adequate length of accessible palpable graft in the arm to allow her to have continuing dialysis and for that reason, I placed a tunneled dialysis catheter. Ultrasound survey of the internal jugular veins demonstrated bilateral sclerosis or occlusion. The left femoral vein looked clean and opened. There was some haziness or irregularity of the right common femoral vein, so I opted to use the left side. Using ultrasound guidance and micropuncture technique, we cannulated the common femoral vein and passed a guidewire and then performed a catheter and guidewire exchange. Then, an incision was made there at that site with an 11 blade and a peel-away dilator introducer was inserted over the wire. This was all observed under fluoroscopy. I chose a 35 cm long HemoSplit made a stab incision on the anterolateral thigh distal to the groin incision and pulled the new catheter from the stab up to the groin incision and then inserted the catheter through the peel-away sheath. It was necessary to use a 0.035 Amplatz wire to help straighten the kink in the graft, which occurred as it was inserted, but eventually a very satisfactory placement was achieved. Both lumens were accessed and aspirated, free return of blood was confirmed and the catheter was flushed with saline and then heparin locked, clamped, and capped. The groin incision was closed with interrupted inverted 3-0 Vicryl and Dermabond glue, Maxorb Ag, Tegaderm and Cavilon skin prep. The exit site was dressed with a chlorhexidine Biopatch and then a standard CVL dressing. The catheter was sutured to the skin near the entry site with 2-0 Prolene. The patient was awakened and taken to the recovery room in stable condition. PLAN: The patient will have dialysis via her new tunneled dialysis catheter for the next 4 weeks. I would like her to continue on vancomycin IV at dialysis sessions and I would like her to be on doxycycline 50 mg once daily indefinitely. I also want her to have nasal 10% povidone iodine swabs used once a week and I want her to have daily Hibiclens bath. We do not need for her to have any recurrent staphylococcal infections! She likely can be discharged back to her long-term tomorrow after dialysis with her new TDC. I do think she should continue on her preop anticoagulation or anticoagulant, which I believe was Eliquis 2.5 mg b.i.d. Blood loss today was about 100 to perhaps even 150 cc. None was replaced. Sponges, instruments, and needles were accounted for. No drain was used and no surgical specimen was submitted for histopathology. OPERATIVE REPORT [id number] SAUL CHACON TRANSKIRILL:[id number] Voice Confirmation ID: [id number] DOCUMENT ID: [id number] AZALIA NIELSEN MD at 1143 CC: ZACK ARANDA [id number] DICTATION DATE: 05/21/19 1138 TREASURY AGENT: 05/21/19 1414 DIS IN 05/22/19 [facility] [address] [id number]
--- NOTE | 2019-05-24 11:43 | OP ---
PATIENT NAME: SAUL CHACON MEDICAL RECORD: [id number] :77 LOCATION:D. D.2132 ADMISSION DATE:05/20/19 SURGEON: AZALIA NIELSEN MD DATE OF OPERATION: 05/20/2019 REFERRING PHYSICIAN: Zack Willams MD PREOPERATIVE DIAGNOSES: Thrombosed left upper extremity AV graft and dependence on hemodialysis, end-stage renal disease, hyperkalemia, hypertension, diabetes, CVA, bedridden, thrombophilia, and breakdown of AV graft. POSTOPERATIVE DIAGNOSES: Thrombosed left upper extremity AV graft and dependence on hemodialysis, end-stage renal disease, hyperkalemia, hypertension, diabetes, CVA, bedridden, thrombophilia, and breakdown of AV graft. SURGEON: Azalia Nielsen MD ANESTHESIA: Operation done under local with TIVA per SOLAR ENERGY SYSTEM INSTALLER. OPERATION PERFORMED: Percutaneous access of left upper extremity AV graft times 2 using ultrasound guidance followed by AngioJet mechanical thrombolysis and balloon angioplasty of in-stent and post-stent axillary vein stenosis and insertion of an 8 mm diameter x 10 cm long Viabahn PTFE covered AV graft and selective axillary artery arteriogram. PREOPERATIVE NOTE: Ms. Chacon is a 43-year-old chronically ill, fdc patient who has end-stage renal disease and is on dialysis, presently with a left upper extremity axillary Artegraft loop. She has thrombosed this several times and has a stent in the venous anastomosis. She has thrombosed it again and is hyperkalemic and needs dialysis access, so she is brought to the operating room at this time to reopen her graft. DESCRIPTION OF PROCEDURE: Under anesthesia local anesthetic and TIVA, the patient was prepped and draped in a sterile manner. The graft was accessed with micropuncture technique and ultrasound guidance, inserting opposing 6-Bermudian introducer sheaths along the distal curvature of the graft. A guidewire was inserted through the venous cannula and advanced into the subclavian vein. A glide catheter was then passed over the wire and a puff of contrast injected at the edge of the ribcage, which demonstrated patency of the axillary vein and 5000 units of heparin was administered. The pullback venogram was then done, which demonstrated a very severe stenosis and thrombus within the stent and in the axillary vein proximal to it. The thrombus was treated first with AngioJet mechanical thrombolysis and the stenosis was dilated with an 8 mm diameter angioplasty balloon. That same balloon was then used to macerate any remaining clot within the venous limb of the graft. Contrast injection demonstrated persistent stenosis, which I treated again with the angioplasty balloon and having the same result. I placed the Viabahn stent which gave a very nice angiographic appearance and free flow of contrast. The wire and glide catheter were then passed proximally through the arterial port in order to rule out arterial blockage or causing reduced flow leading to her repeated episodes of thrombosis and to eliminate or to look for possible embolism. The wire and catheter were selectively placed across the arterial anastomosis and into the proximal axillary artery. Contrast was injected and with digital subtraction technique, the arteriogram completed. This arteriogram revealed at that point, no flow in the graft and no evidence of embolism. 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 Collateral flow to the forearm and hand remained the same and apparently quite adequate. I then lysed thrombus within the arterial limb of the graft with the AngioJet and removed the arterial plug from the arterial anastomosis with a 4-Bermudian Domenic embolectomy catheter. The body of the arterial limb also was treated with serial angioplasty balloon inflations to macerate any residual thrombus. I found no strictures of the arterial anastomosis or body of the graft. Excellent flow was restored within the AV graft and the ports were removed and hemostasis obtained at those 2 sites with [id number] 4-0 Prolene suture. There is an area of skin ulceration overlying the graft along the arterial limb which bled profusely during the procedure, but was not bleeding at the end of the operation. This is an area of repeated puncture or cannulation and I believe it represents an infected fistula at the site of adhesion between the graft and the overlying skin. On physical examination, the overlying skin is fixed to the underlying structures. I believe that this site is a danger for rupture and severe hemorrhage and I will have her go on to dialysis today because of her hyperkalemia and then will return her to the operating room tomorrow in order to bypass or resect this area and prevent any rupture and hemorrhage. Blood loss during the procedure today was about 100 cc. None was replaced. All sponges, instruments, and needles were accounted for. No drain was used and no surgical specimen submitted. TRANSINT:[id number] Voice Confirmation ID: [id number] DOCUMENT ID: [id number] AZALIA NIELSEN MD at 1143 CC: [id number] DICTATION DATE: 05/21/19 140 BRIDGE WELDER: 05/21/19 1557 DIS IN 05/22/19 [facility] [address] [id number]
== END 2019-05-22 19:33 | DRG 252 ==
LOC: D.ER 01:58 → D.M2 02:13
PROVIDERS: Family Medicine; Internal Medicine Nephrology; Surgery; ADMIT Internal Medicine Nephrology; ATTEND Internal Medicine Nephrology
PROC: 03C63ZZ Extirpation of Matter from Left Axillary Artery, Percutaneous Approach (ICD-10-PCS; 2019-05-20)
PROC: 03763DZ Dilation of Left Axillary Artery with Intraluminal Device, Percutaneous Approach (ICD-10-PCS; 2019-05-20)
PROC: 03160JF Bypass Left Axillary Artery to Lower Arm Vein with Synthetic Substitute, Open Approach (ICD-10-PCS; principal; 2019-05-21 14:00)
DX: T82.868A Thrombosis due to vascular prosthetic devices, implants and grafts, initial encounter (principal); N18.6 End stage renal disease; I12.0 Hypertensive chronic kidney disease with stage 5 chronic kidney disease or end stage renal disease; D68.59 Other primary thrombophilia; E11.22 Type 2 diabetes mellitus with diabetic chronic kidney disease; Z99.2 Dependence on renal dialysis; E87.5 Hyperkalemia; Z74.01 Bed confinement status

== ENCOUNTER 2019-06-09 19:40 | Emergency (ER) | payer MEDICARE ==
[~2019-06-09] VITALS: Ht 157.5 cm; Wt 90.9 kg
[2019-06-09 19:41] VITALS: Ht 157.5 cm; Wt 90.9 kg
[2019-06-09 20:24] LABS: BASOPHILS 0.7 % (0-2); EOSINOPHILS 5.2 % (0-7); HEMATOCRIT 27.6 % (36.0-48.0); HEMOGLOBIN 8.5 g/dL (12-16); IMMATURE GRANULOCYTES 0.1 % (0-5); LYMPHOCYTES 20.9 % (15-50); MCH 32.2 pg (26.0-34.0); MCHC 30.8 g/dL (31.0-37.0); MCV 104.5 fL (80.0-100.0); MEAN PLATELET VOLUME 10.2 fL (7.4-10.4); MONOCYTES 9.4 % (2-11); NEUTROPHILS 63.7 % (40-80); PLATELET COUNT 265 10x3/uL (130-400); RBC 2.64 10x6/uL (4.00-5.40); RDW 16.9 % (11.5-14.5); WBC 8.5 10x3/uL (4.8-10.8)
[2019-06-09 20:47] LABS: ALBUMIN 3.1 g/dL (3.4-5.0); ANION GAP 14.1 mmol/L (8-16); BILIRUBIN - TOTAL 0.48 mg/dL (0.2-1.3); CALCIUM 8.1 mg/dL (8.5-10.1); CARBON DIOXIDE 26.8 mmol/L (21.0-32.0); CREATININE - SERUM 6.7 mg/dL (0.6-1.3); POTASSIUM - SERUM 4.9 mmol/L (3.5-5.1)
[2019-06-09 22:40] LABS: APPEARANCE CLEAR (CLEAR); BILIRUBIN NEGATIVE (NEGATIVE); COLOR YELLOW (YELLOW); GLUCOSE 250 mg/dL (NEGATIVE); KETONE NEGATIVE (NEGATIVE); NITRITE NEGATIVE (NEGATIVE); PROTEIN NEGATIVE (NEGATIVE); UROBILINOGEN NORMAL (NORMAL)
[2019-06-10 00:34] VITALS: BP 161/54
== END 2019-06-10 00:35 | disposition home or self-care (01) ==
LOC: D.ER 19:40
PROVIDERS: Emergency Medicine
DX: R50.9 Fever, unspecified (principal); D64.9 Anemia, unspecified; E11.22 Type 2 diabetes mellitus with diabetic chronic kidney disease; I12.0 Hypertensive chronic kidney disease with stage 5 chronic kidney disease or end stage renal disease; N18.6 End stage renal disease; J02.9 Acute pharyngitis, unspecified

== ENCOUNTER 2020-08-24 21:18 | Inpatient (IN) | payer MEDICARE ==
[~2020-08-24] VITALS: Ht 162.6 cm; Wt 84.8 kg
[~2020-08-24 21:18] MED LIST changes: +C-500500 MG PO; +OMNICEF300 MG PO; +PREVACID30 MG PO; +PROVERA10 MG PO; +REGLAN5 MG PO; +TESSALON PERLE100 MG PO; +VITAMIN B-625 MG PO; +XALATAN 0.0052.5 ML EACH EYE
--- NOTE | 2020-08-24 23:40 | NUR ---
PATIENT ARRIVED TO FLOOR VIA STRETCHER TRANSPORTED BY EMS. PATIENT IS ALERT AND ORIENTED, RESTING COMFORTABLY IN BED. NO S/S OF DISTRESS. NO C/O PAIN. CALL LIGHT WITHIN REACH. WILL CPOC.
[2020-08-25] VITALS (7 sets, daily range): BP systolic 119–153; BP diastolic 37–60; Ht 162.6 cm; Wt 84.8 kg
[2020-08-25] MEDS ORDERED: VITAMIN B-1100 M1 PO (00:56)
[2020-08-25] MEDS ORDERED: FOLIC ACID1 MG PO (01:00)
[2020-08-25] MEDS ORDERED: CLARITIN 10 MG10 MG PO (01:04)
[2020-08-25] MEDS ORDERED: REMERON30 MG PO (01:05)
[2020-08-25] MEDS ORDERED: VIC-FORTE CAPSUL1 MG PO (01:07)
[2020-08-25] MEDS ORDERED: PLAVIX75 MG PO (01:09)
[2020-08-25] MEDS ORDERED: ASCORBIC ACID500 MG PO (01:12)
[2020-08-25] MEDS ORDERED: PEPCID AC20 MG PO (01:16)
[2020-08-25] MEDS ORDERED: SODIUM BICARBO650 MG PO (01:16)
[2020-08-25] MEDS ORDERED: HYDROXYZINE HCL10 MG PO (01:18)
[2020-08-25] MEDS ORDERED: RENVELA800 MG PO (01:19)
[2020-08-25] MEDS ORDERED: HUMULIN R100 UNIT/1 SC (01:19)
[2020-08-25] MEDS ORDERED: HYDRALAZINE HCL50 MG PO (01:20)
--- NOTE | 2020-08-25 02:07 | NUR ---
CALLED AND SPOKE WITH PHARMACIST FROM THE [facility] REGARDING NOT BEING ABLE TO PULL ONE GRAM OF MERREM FROM [facility]. PHARMACIST STATED HE WAS NOT ABLE TO VERIFY MEDICATION BECAUSE THE PATIENT CR LEVEL WAS 10.6 AND SHE WAS IN RENAL FAILURE. PHARMACIST STATED THE MOST THE PATIENT COULD GET WAS MERREM ONE GRAM Q 24 HR NOT Q 8HR. PAGED NEY ELIAS APN. RETURN CALL RECEIVED. EXPLAINED SITUATION REGARDING THE MERREM. ORDERS GIVEN TO DO A RANDOM VANC TROUGH AND GIVE A ONE DOSE OF MERREM 500MG IV.
[2020-08-25 06:50] LABS: APTT 37.1 SECONDS (22.8-39.4); INR 1.48 (0.85-1.17); PROTIME 17.8 SECONDS (11.6-15.0)
--- NOTE | 2020-08-25 07:20 | NUR ---
RECEIVE SHIFT REPORT. RESTING IN BED WITH EYES CLOSED. NO SIGNS OF DISTRESS. WILL CONTINUE PLAN OF CARE AND SAFETY PRECAUTIONS.
[2020-08-25 07:50] LABS: ALBUMIN 1.9 g/dL (3.4-5.0); BILIRUBIN - TOTAL 0.44 mg/dL (0.2-1.3); C-REACTIVE PROTEIN 10.9 mg/dL (0.0-0.9); CALCIUM 7.9 mg/dL (8.5-10.1); CARBON DIOXIDE 26.8 mmol/L (21.0-32.0); CREATININE - SERUM 3.6 mg/dL (0.6-1.3); MAGNESIUM - SERUM 1.6 mg/dL (1.8-2.4); PHOSPHOROUS 3.3 mg/dL (2.5-4.9); POTASSIUM - SERUM 3.8 mmol/L (3.5-5.1); PROTEIN - SERUM 6.1 g/dL (6.4-8.2); THYROID STIMULATING HORMONE 5.56 uIU/mL (0.36-3.74); VANCOMYCIN - RANDOM 28.5 ug/mL (10.0-20.0)
[2020-08-25 08:15] LABS: HEMATOCRIT 29.8 % (36.0-48.0); HEMOGLOBIN 9.1 g/dL (12-16); MCH 30.6 pg (26.0-34.0); MCHC 30.5 g/dL (31.0-37.0); MCV 100.3 fL (80.0-100.0); MEAN PLATELET VOLUME 9.8 fL (7.4-10.4); RBC 2.97 10x6/uL (4.00-5.40); RDW 17.5 % (11.5-14.5); WBC 4.4 10x3/uL (4.8-10.8)
[2020-08-25 08:16] LABS: PLATELET COUNT 351 10x3/uL (130-400)
[2020-08-25 10:09] LABS: % SATURATION 50 % (15-55); IRON 47 ug/dl (35-150); TOTAL IRON BIND CAPACITY 93 ug/dl (260-445)
[2020-08-25 10:17] LABS: UNSAT IRON BIND CAPACITY 46 ug/dl (150-375)
[2020-08-25 11:10] LABS: FERRITIN 1563 ng/mL (3-244)
[2020-08-25 12:14] LABS: ANISOCYTOSIS 1+; BASOPHILS 1 % (0-2); EOSINOPHILS 5 % (0-7); LYMPHOCYTES 29 % (15-50); MONOCYTES 12 % (2-11); NEUTROPHILS 51 % (40-80); PLATELET ESTIMATE NORMAL
[2020-08-25 12:37] LABS: ERYTHROCYTE SEDIMENTATION RATE 62 mm/hr (0-20)
--- NOTE | 2020-08-25 15:02 | MORECARE ---
CASE MANAGEMENT DISCHARGE SUMMARY PATIENT: SAUL MCNALLY UNIT: [id number] ADM DATE: 08/24/20 AGE: 44 : [birth year] SEX: F ROOM/BED: D.2138 AUTHOR: DARRIN STEVE PHYSICIAN: REFERRING PHYSICIAN: KTAIE FLYNN MD DATE OF SERVICE: 08/25/20 Discharge Plan Patient Name: SAUL MCNALLY Facility: [facility]:[place] : 1975 Planned Disposition: Anticipated Discharge Date: Discharge Date: Expected LOS: Initial Reviewer: [email or web address] Initial Review Date: 08/24/2020 Generated: 08/25/20 4:02 pm Patient Name: SAUL MCNALLY Page [phone] at 1502 All edits/amendments must be made on the electronic document DICTATION DATE: 08/25/20 1502 GLUER: LENORE 08/25/20 1502 RPT#: [id number] DC DATE: STATUS: ADM IN [facility] [address] [place] [address] END OF REPORT
--- NOTE | 2020-08-25 15:36 | NUR ---
Pt will have I & D with wound vac placement tomorrow by Dr. Felton. Wound care continues to monitor.
--- NOTE | 2020-08-25 19:00 | NUR ---
REPORT RECEIVED, WILL CONTINUE POC. PATIENT IS RESTING WITH EYES CLOSED. NO S/S OF DISTRESS OBSERVED, RR EVEN AND UNLABORED ON ROOM AIR. PIV TO RT BREAST SL. PIV TO RT AC ACCIDENTALLY DC'D WITH CATH TIP INTACT. PATIENT DENIES NEEDS AT THIS TIME. CL IN REACH, BED LOCKED AND LOWERED. CONTACT PRECAUTIONS MAINTAINED. WILL CTM.
--- NOTE | 2020-08-26 03:58 | NUR ---
WILL BE UNABLE TO OBTAIN URINE SPECIMEN PATIENT IN ANURIC.
[2020-08-26 06:05] LABS: BASOPHILS 0.9 % (0-2); EOSINOPHILS 6.4 % (0-7); HEMATOCRIT 28.8 % (36.0-48.0); IMMATURE GRANULOCYTES 0.2 % (0-5); MCH 31.1 pg (26.0-34.0); MCHC 31.3 g/dL (31.0-37.0); MCV 99.7 fL (80.0-100.0); MEAN PLATELET VOLUME 9.3 fL (7.4-10.4); MONOCYTES 14.8 % (2-11); NEUTROPHILS 40.7 % (40-80); PLATELET COUNT 324 10x3/uL (130-400); RBC 2.89 10x6/uL (4.00-5.40); RDW 17.3 % (11.5-14.5); WBC 4.4 10x3/uL (4.8-10.8)
[2020-08-26 06:50] LABS: ALBUMIN 1.7 g/dL (3.4-5.0); ANION GAP 11.2 mmol/L (8-16); BILIRUBIN - TOTAL 0.28 mg/dL (0.2-1.3); CALCIUM 8.2 mg/dL (8.5-10.1); CARBON DIOXIDE 27.2 mmol/L (21.0-32.0); MAGNESIUM - SERUM 1.8 mg/dL (1.8-2.4); PHOSPHOROUS 3.2 mg/dL (2.5-4.9); POTASSIUM - SERUM 3.4 mmol/L (3.5-5.1); PROTEIN - SERUM 6.1 g/dL (6.4-8.2); VANCOMYCIN - RANDOM 27.5 ug/mL (10.0-20.0)
[2020-08-26 06:53] LABS: CREATININE - SERUM 5.1 mg/dL (0.6-1.3)
[2020-08-26 10:06] VITALS: BP 161/43
[2020-08-26 11:38] VITALS: BP 108/42
--- NOTE | 2020-08-26 14:35 | NUR ---
CONSULTED ANESETHISA ABOUT BP. ORDER TO GIVE 10MG OF IV EPHEDRINE NOW. V.O READ BACK CORRECT. PT IS A&OX4
--- NOTE | 2020-08-26 15:07 | NUR ---
RECIEVED PT BACK FROM PACU V/S 125/47 HR 63 SPO 98% RA R 18 T 97.1 REPORTED RECIEVED FROM JACLYN KEANE RN
[2020-08-26 15:10] VITALS: BP 125/45
[2020-08-26 20:00] VITALS: BP 125/48
[2020-08-27] VITALS (7 sets, daily range): BP systolic 84–126; BP diastolic 33–52
--- NOTE | 2020-08-27 03:10 | NUR ---
I have reviewed this patient and I concur with the Shift Assessment completed by the Licensed Practical Nurse today this shift.
[2020-08-27 06:53] LABS: BASOPHILS 0.7 % (0-2); EOSINOPHILS 3.1 % (0-7); HEMATOCRIT 27.9 % (36.0-48.0); HEMOGLOBIN 8.4 g/dL (12-16); IMMATURE GRANULOCYTES 0.2 % (0-5); LYMPHOCYTES 25.1 % (15-50); MCH 29.8 pg (26.0-34.0); MCHC 30.1 g/dL (31.0-37.0); MCV 98.9 fL (80.0-100.0); MEAN PLATELET VOLUME 9.7 fL (7.4-10.4); MONOCYTES 15.2 % (2-11); NEUTROPHILS 55.7 % (40-80); PLATELET COUNT 318 10x3/uL (130-400); RBC 2.82 10x6/uL (4.00-5.40); RDW 17.6 % (11.5-14.5); WBC 5.4 10x3/uL (4.8-10.8)
--- NOTE | 2020-08-27 07:16 | NUR ---
Lying in bed w/eyes closed, resp even and unlabored no distress noted.
[2020-08-27 07:23] LABS: ALBUMIN 1.9 g/dL (3.4-5.0); ANION GAP 13.6 mmol/L (8-16); BILIRUBIN - TOTAL 0.33 mg/dL (0.2-1.3); CALCIUM 7.9 mg/dL (8.5-10.1); CARBON DIOXIDE 25.4 mmol/L (21.0-32.0); MAGNESIUM - SERUM 1.8 mg/dL (1.8-2.4); VANCOMYCIN - RANDOM 23.7 ug/mL (10.0-20.0)
[2020-08-27 07:25] LABS: CREATININE - SERUM 6.6 mg/dL (0.6-1.3); PHOSPHOROUS 4.4 mg/dL (2.5-4.9)
--- NOTE | 2020-08-27 16:18 | NUR ---
0916--LYING IN BED W/EYES CLOSED, AROUSES EASILY W/VERBAL STIMULI. AM PO MEDS ADMINISTER/ORDER, PT TOLERATED ALL WELL. 1116-VS DONE--LUNCH SERVED-PO MEDS GIVEN-PT STATES, "I'M DONT FEEL LIKE EATING" DENIES ANY FURTHER NEEDS. 1316-LYING IN BED W/EYES CLOSED, AROUSED EASILY W/VERBAL STIMULI. NO DISTRESS NOTED. 1516-DIALYSIS GETTING SET UP IN PT'S ROOM TO CARRY OUT DIALYSIS AT THIS TIME. NO DISTRESS NOTED.
[2020-08-28] VITALS: BP 66/30
[2020-08-28 04:00] VITALS: BP 95/47
--- NOTE | 2020-08-28 06:51 | NUR ---
PT WITH A BLOOD SUGAR OF 96.NO COVERAGE NEEDED.
--- NOTE | 2020-08-28 06:57 | NUR ---
REPORT GIVEN.SAFETY MEASURES ARE IN PLACE.CALLBELL IN REACH.NO DISTRESS NOTED.
[2020-08-28 08:22] VITALS: BP 117/48
[2020-08-28 13:58] LABS: BASOPHILS 0.8 % (0-2); EOSINOPHILS 3.9 % (0-7); HEMOGLOBIN 8.4 g/dL (12-16); LYMPHOCYTES 25.8 % (15-50); MCH 30.8 pg (26.0-34.0); MCHC 31.1 g/dL (31.0-37.0); MCV 98.9 fL (80.0-100.0); MEAN PLATELET VOLUME 9.4 fL (7.4-10.4); MONOCYTES 12.2 % (2-11); NEUTROPHILS 57.3 % (40-80); PLATELET COUNT 289 10x3/uL (130-400); RBC 2.73 10x6/uL (4.00-5.40); RDW 17.9 % (11.5-14.5); WBC 6.4 10x3/uL (4.8-10.8)
[2020-08-28 14:26] LABS: ALBUMIN 1.8 g/dL (3.4-5.0); ANION GAP 13.2 mmol/L (8-16); BILIRUBIN - TOTAL 0.42 mg/dL (0.2-1.3); CARBON DIOXIDE 25.8 mmol/L (21.0-32.0); CREATININE - SERUM 6.4 mg/dL (0.6-1.3); MAGNESIUM - SERUM 1.7 mg/dL (1.8-2.4); PHOSPHOROUS 4.7 mg/dL (2.5-4.9); PROTEIN - SERUM 5.8 g/dL (6.4-8.2); VANCOMYCIN - RANDOM 19.6 ug/mL (10.0-20.0)
--- NOTE | 2020-08-28 14:30 | NUR ---
Nutrition Follow-up: Pt sleeping soundly at time of visit this AM. Breakfast tray appeared untouched. Nursing reports pt has been very sleepy and did not eat very much yesterday and did not eat this AM. HD MWF. Diet: Renal ADA PO intake: 25% avg yesterday Wt: 186.9# (08/25) Labs reviewed Meds noted: vit B6, vit C, folate, Remeron, Pepcid, Reglan, electrolyte protocol -Encourage PO intake and honor food preferences within diet restrictions. -Offer Nepro with meals. -RD following.
--- NOTE | 2020-08-28 14:32 | MORECARE ---
CASE MANAGEMENT DISCHARGE SUMMARY PATIENT: SAUL MCNALLY UNIT: [id number] ADM DATE: 08/24/20 AGE: 44 : 76 SEX: F ROOM/BED: D.2138 AUTHOR: DARRIN STEVE PHYSICIAN: REFERRING PHYSICIAN: KATIE FLYNN MD DATE OF SERVICE: 08/28/20 Discharge Plan Patient Name: SAUL MCNALLY Facility: [facility]:[place] : 1975 Planned Disposition: Anticipated Discharge Date: Discharge Date: Expected LOS: Initial Reviewer: [email or web address] Initial Review Date: 08/24/2020 Generated: 08/28/20 3:31 pm Last DP export: 08/25/20 2:02 p Patient Name: SAUL MCNALLY Page [phone] at 1432 All edits/amendments must be made on the electronic document DICTATION DATE: 08/28/20 1431 MULTIPLE PRESSURE RIVETER OPERATOR: LENORE 08/28/20 1431 RPT#: [id number] DC DATE: STATUS: ADM IN [facility] [address] [place] [address] END OF REPORT
--- NOTE | 2020-08-28 15:59 | MORECARE ---
CASE MANAGEMENT DISCHARGE SUMMARY PATIENT: SAUL MCNALLY UNIT: [id number] ADM DATE: 08/24/20 AGE: 44 : 77 SEX: F ROOM/BED: D.8218 AUTHOR: DARRIN STEVE PHYSICIAN: REFERRING PHYSICIAN: KATIE FLYNN MD DATE OF SERVICE: 08/28/20 Discharge Plan Patient Name: SAUL MCNALLY Facility: [facility]:[place] : 1975 Planned Disposition: Anticipated Discharge Date: Discharge Date: Expected LOS: Initial Reviewer: [email or web address] Initial Review Date: 08/24/2020 Generated: 08/28/20 4:58 pm Last DP export: 08/28/20 1:32 p Patient Name: SAUL MCNALLY Page [phone] at 1559 All edits/amendments must be made on the electronic document DICTATION DATE: 08/28/20 1558 ASSOCIATE PROFESSOR OF PHILOSOPHY: LENORE 08/28/20 1558 RPT#: [id number] DC DATE: STATUS: ADM IN [facility] [address] [place] [address] END OF REPORT
[2020-08-28 21:41] VITALS: BP 114/32
[2020-08-29 07:17] LABS: BASOPHILS 0.6 % (0-2); EOSINOPHILS 5.1 % (0-7); HEMATOCRIT 28.3 % (36.0-48.0); HEMOGLOBIN 8.7 g/dL (12-16); IMMATURE GRANULOCYTES 0.1 % (0-5); LYMPHOCYTES 29.1 % (15-50); MCHC 30.7 g/dL (31.0-37.0); MCV 97.6 fL (80.0-100.0); MEAN PLATELET VOLUME 9.3 fL (7.4-10.4); MONOCYTES 10.7 % (2-11); NEUTROPHILS 54.4 % (40-80); PLATELET COUNT 298 10x3/uL (130-400); RDW 17.6 % (11.5-14.5)
--- NOTE | 2020-08-29 07:30 | NUR ---
0708-LYING IN BED AWAKE, ALERT, SPEAKS TO NURSE, DENIES ANY NEEDS. LAB IN ROOM DRAWING LABS AT THIS TIME.
[2020-08-29 07:48] LABS: ALBUMIN 1.8 g/dL (3.4-5.0); ANION GAP 14.2 mmol/L (8-16); BILIRUBIN - TOTAL 0.42 mg/dL (0.2-1.3); CALCIUM 7.9 mg/dL (8.5-10.1); CARBON DIOXIDE 26.1 mmol/L (21.0-32.0); CREATININE - SERUM 7.3 mg/dL (0.6-1.3); MAGNESIUM - SERUM 1.8 mg/dL (1.8-2.4); PHOSPHOROUS 4.3 mg/dL (2.5-4.9); POTASSIUM - SERUM 4.3 mmol/L (3.5-5.1); PROTEIN - SERUM 6.1 g/dL (6.4-8.2)
[2020-08-29 09:08] VITALS: BP 144/35
[2020-08-29 10:52] VITALS: BP 94/52
--- NOTE | 2020-08-29 14:07 | NUR ---
PT RECEIVING DIALYSIS AT THIS TIME TOLERATING WELL
[2020-08-29 14:08] LABS: INR 1.13 (0.85-1.17); PROTIME 14.4 SECONDS (11.6-15.0)
--- NOTE | 2020-08-29 14:58 | NUR ---
0900-LYING IN BED W/EYES CLOSED, AROUSES EASILY AND TAKES MEDS WITHOUT DIFFICULTY, DENIES ANY NEEDS. 1100-NO CHANGES TO REPORT 1353-CONTACTED PT'S [facility] SPOKE TO SERAFIN PT'S NURSE SERAFIN CONFIRMS THAT PT DOES SIGN HER OWN PAPERWORK PT DOES NOT HAVE A POA--CONSENTS FOR PROCEDURE, BLOOD, AND ANESTHESIA VERBALLY EXPLAINED TO PT W/UNDERTANDING STATED TO ALL/CONSENTS SIGNED AND WITNESSED/THIS NURSE AND ONE OTHER STAFF NURSE. 1500--DIALYSIS CONTINUES--
[2020-08-29 16:21] VITALS: BP 121/41
--- NOTE | 2020-08-29 17:53 | NUR ---
1736--EKG COMPLETE, PO MEDS GIVEN, CHANGED PT'S LINENS GOWN, SMALL BM NOTED. DENIES ANY FURTHER NEEDS.
[2020-08-29 20:18] VITALS: BP 98/54
[2020-08-30 02:00] VITALS: BP 134/88
[2020-08-30 04:45] VITALS: BP 77/37
[2020-08-30 06:56] LABS: BASOPHILS 0.7 % (0-2); EOSINOPHILS 6.7 % (0-7); HEMATOCRIT 25.8 % (36.0-48.0); HEMOGLOBIN 8.1 g/dL (12-16); IMMATURE GRANULOCYTES 0.2 % (0-5); LYMPHOCYTES 30.3 % (15-50); MCH 30.7 pg (26.0-34.0); MCHC 31.4 g/dL (31.0-37.0); MCV 97.7 fL (80.0-100.0); MEAN PLATELET VOLUME 9.6 fL (7.4-10.4); MONOCYTES 15.2 % (2-11); NEUTROPHILS 46.9 % (40-80); PLATELET COUNT 277 10x3/uL (130-400); RBC 2.64 10x6/uL (4.00-5.40); WBC 5.9 10x3/uL (4.8-10.8)
--- NOTE | 2020-08-30 07:20 | NUR ---
RECIEVE REPORT. RESTING IN BED WITH EYES CLOSED. NO SIGNS OF DISTRESS. CONTINUE PLAN OF CARE AND SAFETY PRECAUTIONS.
[2020-08-30 07:30] LABS: ANION GAP 9.3 mmol/L (8-16); CALCIUM 7.9 mg/dL (8.5-10.1); CARBON DIOXIDE 27.5 mmol/L (21.0-32.0); CREATININE - SERUM 6.3 mg/dL (0.6-1.3); POTASSIUM - SERUM 3.8 mmol/L (3.5-5.1); VANCOMYCIN - RANDOM 29.6 ug/mL (10.0-20.0)
[2020-08-30 08:18] VITALS: BP 149/53
--- NOTE | 2020-08-30 13:40 | NUR ---
GONSALOT STATES SHE IS IN PAIN BUT DOZES OFF AND GOES BACK TO SLEEP. SHE ASKED WHY SHE WAS SO TIRED. EDUCATED ON ANESTHESIA. ASKED IF SHE COULD STAY AWAKE FOR ME WE COULD GIVE PAIN MEDICATIONS. EDUCATED ON SIDE EFFECTS OF MEDICATIONS. PATIENT NOT MOVING EXTREMITIES BUT ABLE TO SQUEEZE BOTH HANDS. CAN NOT LIFT HEAD OFF PILLOW AND SAYS "ICACINDY" CALLED NURSE TO ASK BASELINE. STATED THAT SHE HAS NOT BEEN MOVING ALOT. NRUSE ASKED PATIENT TO TOUCH HER NOSE AND PT WOULDNT DO IT. NURSE DID SAY SHE IS MENTALLY DELYAED AND HISTORY OF CVA.
--- NOTE | 2020-08-30 14:15 | NUR ---
ARRIVE BACK TO ROOM VIA BED FROM PROCEDURE. ALERT. SLOW TO RESPOND. BP-133/57, HR-74, T-98, O2-97% RA. LT LEG DRESSING C/D/I. DENIES ANY NEEDS. CONTINUE PLAN OF CARE AND SAFETY PRECAUTIONS.
[2020-08-30 16:13] VITALS: BP 139/46
[2020-08-30 17:15] VITALS: BP 139/46
[2020-08-30 21:30] VITALS: BP 92/49
[2020-08-31 01:30] VITALS: BP 85/40
[2020-08-31 04:35] VITALS: BP 90/39
--- NOTE | 2020-08-31 05:50 | NUR ---
PT IS A&O FARRAH. INDIGO CALL LIGHT TO ASK FOR PAIN MEDICATION. SHE STATED SHE IS FROM [place] AND CAN FOLLOW COMMANDS. NO DISTRESS OBSERVED. WILL CPOC.
[2020-08-31 06:23] LABS: BASOPHILS 0.7 % (0-2); EOSINOPHILS 4.6 % (0-7); HEMATOCRIT 25.1 % (36.0-48.0); HEMOGLOBIN 7.7 g/dL (12-16); IMMATURE GRANULOCYTES 0.3 % (0-5); LYMPHOCYTES 30.8 % (15-50); MCH 29.6 pg (26.0-34.0); MCHC 30.7 g/dL (31.0-37.0); MCV 96.5 fL (80.0-100.0); MEAN PLATELET VOLUME 9.7 fL (7.4-10.4); MONOCYTES 16.1 % (2-11); NEUTROPHILS 47.5 % (40-80); PLATELET COUNT 285 10x3/uL (130-400); RDW 18.1 % (11.5-14.5); WBC 6.1 10x3/uL (4.8-10.8)
[2020-08-31 06:40] LABS: ANION GAP 11.5 mmol/L (8-16); CALCIUM 7.7 mg/dL (8.5-10.1); CARBON DIOXIDE 25.6 mmol/L (21.0-32.0); CREATININE - SERUM 7.4 mg/dL (0.6-1.3); POTASSIUM - SERUM 4.1 mmol/L (3.5-5.1)
--- NOTE | 2020-08-31 07:20 | NUR ---
RECIEVE REPORT. RESTING IN BED WITH EYES CLOSED. WOUND VAC TO LT AKA FREE FROM LEAKS. NO SIGNS OF DISTRESS. CONTINUE PLAN OF CARE AND SAFETY PRECAUTIONS.
[2020-08-31 08:28] VITALS: BP 114/52
--- NOTE | 2020-08-31 09:19 | OP ---
PATIENT NAME: SAUL MCNALLY MEDICAL RECORD: [id number] :77 LOCATION:[facility] D.2138 ADMISSION DATE:08/24/20 SURGEON: KIMBERLYN RODRÍGUEZ MD DATE OF OPERATION: 08/30/2020 PREOPERATIVE DIAGNOSES: Osteomyelitis, left knee. POSTOPERATIVE DIAGNOSIS: Osteomyelitis, left knee. PROCEDURE PERFORMED: 1. Left above-knee amputation. 2. Application of wound VAC, left lower extremity (less than 50 cm-squared). INDICATIONS: Ms. Mcnally is a 45-year-old female with a history of osteomyelitis of left knee. This has been a chronic infection and she has significant destruction of the knee joint with involvement of the distal femur and proximal tibia. She is nonambulatory due to previous stroke and also has a history of kidney failure and diabetes. I talked with her about these findings and options for management. She has elected to proceed with surgery for left above-knee arthroplasty. Risks, benefits, and alternatives of surgery were discussed with the patient. Consent was obtained. DESCRIPTION OF PROCEDURE: The patient was met in the holding area where his identity and confirmation of the procedure was performed. The left lower extremity was marked. She was taken to the operating room where she was placed supine on the operating table and anesthesia was administered. Tourniquet was applied to left thigh and the left leg was prepped and draped in a sterile fashion. The patient is on scheduled antibiotics; therefore, did not receive any immediately preop. A timeout was performed for initiating the case. On initiation of the case, the leg was gravity exsanguinated and the tourniquet was raised. Total tourniquet time was approximately 30 minutes. Incision was made around the leg circumferentially in a fishmouth type manner. We incised through the skin and subcutaneous tissues dissected down to the fascia of the anterior and posterior leg. The anterior muscles were transected and a retractor was placed under the femur. The femur was then cut with the saw. We continued our dissection deep through the posterior muscles and the vascular bundle extending through the subcutaneous tissues. Leg was sent for gross pathology. The neurovascular structures were identified and tagged. The sciatic nerve was identified and traction was applied as it was cut proximally. The neurovascular bundles were ligated with 0 silk ties. Tourniquet was let down and we confirmed hemostasis. Wound was irrigated thoroughly with saline. We then proceeded with closure. The tendons of muscles distally were reapproximated. The medial was tied to the lateral and anterior to the posterior with a #1 PDS suture. This provided good coverage of the bony ends. We then closed the deep subcutaneous tissue with 0 Vicryl and the subcutaneous skin edges were closed with 2-0 Vicryl. The skin was then closed with nylon suture. Incisional wound VAC was then applied to the wound. A sterile dressing was then used to cover the wound VAC and this completed our procedure. The patient was turned back over to anesthesia. She was awakened, extubated, and taken to recovery room in stable condition. POSTOPERATIVE PLAN: The patient is going to return to the floor for continued postoperative care. Continue IV antibiotics for another few days. Physical therapy will be consulted to assist with mobility. [facility]. We will need to leave the sutures in for 4 weeks. OPERATIVE REPORT [id number] SAUL MCNALLY ANESTHESIA: General. COMPLICATIONS: None. ESTIMATED BLOOD LOSS: 200 mL. TRANSINT:[id number] Voice Confirmation ID: [id number] DOCUMENT ID: [id number] KIMBERLYN RODRÍGUEZ MD at 0919 CC: [id number] DICTATION DATE: 08/30/20 1324 PUBLIC HEALTH OFFICER: 08/31/20 0133 [facility] [place] [id number] [place] [address]
[2020-08-31 11:08] VITALS: BP 110/44
[2020-08-31 15:57] VITALS: BP 98/47
--- NOTE | 2020-08-31 17:00 | NUR ---
RESTING IN BED RECIEVING DIALYSIS. ALERT AND ORIENTED. DENIES ANY NEEDS. WOUND VAC TO LT LEG FREE FROM LEAKS. CONTINUE PLAN OF CARE AND SAFETY PRECAUTIONS.
--- NOTE | 2020-08-31 19:00 | NUR ---
REPORT RECEIVED, WILL CONTINUE POC. PATIENT IS AAXO4, LYING IN SEMI-FOWLERS POSITION. PATIENT RECEIVING DIALYSIS AT THIS TIME, DIALYSIS NURSE AT BEDSIDE. NO S/S OF DISTRESS OBSERVED, RR EVEN AND UNLABORED ON ROOM AIR. WOUND VAC TO LEFT AKA SITE. PATIENT DENIES NEEDS AT THIS TIME. CL IN REACH, BED LOCKED AND LOWERED. CONTACT PRECAUTIONS MAINTAINED. WILL CTM.
[2020-08-31 20:00] VITALS: BP 92/57
--- NOTE | 2020-08-31 20:00 | NUR ---
PATIENT C/O PAIN IN LEFT LEG STUMP 09/05. ADMINISTERED PRN NORCO PER ORDERS. WILL CTM.
--- NOTE | 2020-09-01 00:15 | NUR ---
PATIENT C/O PAIN IN LEFT LEG STUMP 09/05. ADMINISTERED PRN NORCO PER ORDERS. WILL CTM.
--- NOTE | 2020-09-01 04:50 | NUR ---
PATIENT C/O PAIN IN LEFT LEG STUMP 09/05. ADMINISTERED PRN NORCO PER ORDERS. WILL CTM.
[2020-09-01 05:11] LABS: BASOPHILS 0.7 % (0-2); HEMATOCRIT 24.2 % (36.0-48.0); HEMOGLOBIN 7.6 g/dL (12-16); IMMATURE GRANULOCYTES 0.2 % (0-5); LYMPHOCYTES 20.4 % (15-50); MCH 30.3 pg (26.0-34.0); MCHC 31.4 g/dL (31.0-37.0); MCV 96.4 fL (80.0-100.0); MEAN PLATELET VOLUME 10.3 fL (7.4-10.4); MONOCYTES 15.2 % (2-11); NEUTROPHILS 58.5 % (40-80); PLATELET COUNT 254 10x3/uL (130-400); RBC 2.51 10x6/uL (4.00-5.40)
[2020-09-01 05:29] LABS: ANION GAP 9.6 mmol/L (8-16); CALCIUM 7.6 mg/dL (8.5-10.1); POTASSIUM - SERUM 3.6 mmol/L (3.5-5.1); VANCOMYCIN - RANDOM 21.4 ug/mL (10.0-20.0)
[2020-09-01 05:32] LABS: CREATININE - SERUM 5.4 mg/dL (0.6-1.3)
--- NOTE | 2020-09-01 07:20 | NUR ---
RECIEVE REPORT. RESTING IN BED WITH EYES CLOSED. AROUSES TO STIMULI. LT AKA WOUND VAC FREE FROM LEAKS. NO SIGNS OF DISTRESS. CONTINUE PLAN OF CARE AND SAFETY PRECAUTIONS.
[2020-09-01 07:58] VITALS: BP 90/46
--- NOTE | 2020-09-01 08:21 | MORECARE ---
CASE MANAGEMENT DISCHARGE SUMMARY PATIENT: SAUL MCNALLY UNIT: [id number] ADM DATE: 08/24/20 AGE: 45 : [birth year] SEX: F ROOM/BED: D.2138 AUTHOR: DARRIN STEVE PHYSICIAN: REFERRING PHYSICIAN: KATIE FLYNN MD DATE OF SERVICE: 09/01/20 Discharge Plan Patient Name: SAUL MCNALLY Facility: [facility]:[place] : 1975 Planned Disposition: Anticipated Discharge Date: Discharge Date: Expected LOS: Initial Reviewer: [email or web address] Initial Review Date: 08/24/2020 Generated: 09/01/20 9:20 am External Providers External Provider: OTHER-OTHER Next Contact Date: Service Request Date: Service Type: Resolution: Reviewer: Comments: Last DP export: 08/28/20 2:59 p Patient Name: SAUL MCNALLY Page [phone] at 0821 All edits/amendments must be made on the electronic document DICTATION DATE: 09/01/20819 CITY MAGISTRATE: LENORE 09/01/20819 RPT#: [id number] DC DATE: STATUS: ADM IN [facility] [address] [place] [address] END OF REPORT
--- NOTE | 2020-09-01 08:33 | MORECARE ---
CASE MANAGEMENT DISCHARGE SUMMARY PATIENT: SAUL MCNALLY UNIT: [id number] ADM DATE: 08/24/20 AGE: 45 : 76 SEX: F ROOM/BED: D.9168 AUTHOR: DARRIN STEVE PHYSICIAN: REFERRING PHYSICIAN: KATIE FLYNN MD DATE OF SERVICE: 09/01/20 Discharge Plan Patient Name: SALU MCNALLY Facility: [facility]:[place] : 1975 Planned Disposition: [facility] Facility Anticipated Discharge Date: Discharge Date: Expected LOS: Initial Reviewer: [email or web address] Initial Review Date: 08/24/2020 Generated: 09/01/20 9:33 am Comments DCP- Discharge Planning Updated by [email or web address]: Greta Sargent on 09/01/20 7:[address] Patient Name: SAUL MCNALLY Encounter No: [id number] : 1975 Primary Insurance: MEDICARE A & B Anticipated DC Date: Planned Disposition: External Planned Provider: : DCP follow-up note: CM called [facility] at [phone] and spoke with Alyx. CM faxed clinical updates to Noelle at [phone]. Case management will follow and assist as needed. Greta Sargent Last DP export: 09/01/20 7:20 a Patient Name: SAUL MCNALLY Page [phone] at 0833 All edits/amendments must be made on the electronic document DICTATION DATE: 09/01/20832 SUIT ATTENDANT: DM 09/01/20 08 RPT#: [id number] DC DATE: STATUS: ADM IN [facility] [address] [place] [address] END OF REPORT
[2020-09-01 10:57] VITALS: BP 99/63
--- NOTE | 2020-09-01 14:17 | NUR ---
Nutrition Follow-up: POD 2 L AKA. Not eating well. HD yesterday. Diet: Renal ADA PO intake: 0-25% yesterday WT: 186.9# (08/25) Last BM: 08/24 per chart Labs noted: K+ 3.6, Ca 7.6 Meds noted: vit B1, vit B6, vit C, folate, Remeron, Reglan, Zofran, electrolyte protocol -Encourage PO intake and honor food preferences within diet restrictions. -+Nepro with meals. -Need new wt if possible; noted daily wts ordered. -RD following.
--- NOTE | 2020-09-01 14:51 | NUR ---
RESTING IN BED WATCHING TV. DENIES ANY NEEDS. NO SIGNS OF DISTRESS. CONTINUE PLAN OF CARE AND SAFETY PRECAUTIONS.
[2020-09-01 15:59] VITALS: BP 100/55
[2020-09-01 20:00] VITALS: BP 110/39; BP 110/40
--- NOTE | 2020-09-01 23:23 | NUR ---
PLACED 20G IV IN PT'S RIGHT UPPER ARM X1 STICK. ANTIBIOTICS RUNNING AT THIS TIME. BED LOW CALL LIGHT WITHIN REACH. WILL CONTINUE TO MONITOR.
[2020-09-02] VITALS: BP 124/40
[2020-09-02 01:09] VITALS: BP 124/40
[2020-09-02 04:00] VITALS: BP 116/49
[2020-09-02 06:06] LABS: BASOPHILS 0.9 % (0-2); EOSINOPHILS 5.7 % (0-7); HEMATOCRIT 24.5 % (36.0-48.0); HEMOGLOBIN 7.6 g/dL (12-16); IMMATURE GRANULOCYTES 0.2 % (0-5); LYMPHOCYTES 27.7 % (15-50); MCH 29.9 pg (26.0-34.0); MCV 96.5 fL (80.0-100.0); MONOCYTES 14.7 % (2-11); NEUTROPHILS 50.8 % (40-80); PLATELET COUNT 288 10x3/uL (130-400); RBC 2.54 10x6/uL (4.00-5.40); RDW 18.2 % (11.5-14.5); WBC 5.6 10x3/uL (4.8-10.8)
[2020-09-02 06:28] LABS: CALCIUM 7.9 mg/dL (8.5-10.1); CARBON DIOXIDE 28.7 mmol/L (21.0-32.0); CREATININE - SERUM 6.7 mg/dL (0.6-1.3); POTASSIUM - SERUM 3.7 mmol/L (3.5-5.1); VANCOMYCIN - RANDOM 21.3 ug/mL (10.0-20.0)
--- NOTE | 2020-09-02 07:15 | NUR ---
KALIN GAVE ORDERS TO CANCEL ANY URINE SAMPLE. URINE SAMPLES HAVE BEEN D/C'D.
[2020-09-02 09:33] VITALS: BP 100/58
--- NOTE | 2020-09-02 12:40 | MORECARE ---
CASE MANAGEMENT DISCHARGE SUMMARY PATIENT: SAUL MCNALLY UNIT: [id number] ADM DATE: 08/24/20 AGE: 45 : [birth year] SEX: F ROOM/BED: D.5115 AUTHOR: DARRIN STEVE PHYSICIAN: REFERRING PHYSICIAN: KATIE FLYNN MD DATE OF SERVICE: 09/02/20 Discharge Plan Patient Name: SAUL MCNALLY Facility: [facility]:[place] : 1975 Planned Disposition: Group Home Facility Anticipated Discharge Date: Discharge Date: Expected LOS: Initial Reviewer: [email or web address] Initial Review Date: 08/24/2020 Generated: 09/02/20 1:39 pm Comments DCP- Discharge Planning Updated by [email or web address]: Greta Sargent on 09/02/20 11:[address] Patient Name: SAUL MCNALLY Encounter No: [id number] : 1975 Primary Insurance: MEDICARE A & B Anticipated DC Date: Planned Disposition: Group Home Facility External Planned Provider: : DCP follow-up note: CM spoke with patient about pending dc. Pt is in agreement to return to [place]. CM called facility at [phone] about transportation. The patient will return in a [facility] bed, and will require EMS transportation. Nursing can call report to Dania Beckett at [phone]. DC IMM delivered via doorway, explained, and placed in chart. Form also left with the patient. Patient and family in agreement with discharge plan. No changes to plan. Case management will follow and assist as needed. Greta Sargent DCP- Discharge Planning Updated by [email or web address]: Greta Sargent on 09/01/20 7:[address] Patient Name: SAUL MCNALLY Encounter No: [id number] : 1975 Primary Insurance: MEDICARE A & B Anticipated DC Date: Planned Disposition: External Planned Provider: : DCP follow-up note: CM called [place] at [phone] and spoke with Alyx. CM faxed clinical updates to [facility] at [phone]. Case management will follow and assist as needed. Greta Edds Coverage Notice Reviewer: [id number] - Greta Sargent Notice Issued Date-Time: 09/02/2020 12:10 Notice Type: IM Discharge Notice Notice Delivered To: Patient Relationship to Patient: Self Food And Beverage Intern Name: Delivery Method: HAND - Hand Delivered Cleo Days: Prior Verbal Notification: Yes Recipient Understood Notice: Yes Recipient Signature: Med Rec Note Co-signed by Attending: Coverage Notice Comment: provided to doorway. copy provided to pt via nurse. Last DP export: 09/01/20 7:33 a Patient Name: SAUL MCNALLY Page [phone] at 1240 All edits/amendments must be made on the electronic document DICTATION DATE: 09/02/20 1239 DOT COMPLIANCE COORDINATOR: LENORE 09/02/20 1239 RPT#: [id number] DC DATE: STATUS: ADM IN [facility] [address] [place] [address] END OF REPORT
[2020-09-02 13:06] VITALS: BP 125/56
--- NOTE | 2020-09-02 13:16 | NUR ---
UPON DISCHARGE, PATIENT QUESTIONED IF SHE WANTED A FLU SHOT. SHE REFUSED.
--- NOTE | 2020-09-02 14:19 | NUR ---
DR RODRÍGUEZ HERE TO FILL SCRIPT FOR [employer] 7.5/325 #40 WITH NO REFILLS. COPY OF THIS PLACE INTO CHART.
[2020-09-02] MEDS ORDERED: NORCO 7.5-3251 EACH PO (14:26)
--- NOTE | 2020-09-03 13:51 | OP ---
PATIENT NAME: SAUL MCNALLY MEDICAL RECORD: [id number] :[birth year] LOCATION:[facility] D.2138 ADMISSION DATE:08/24/20 SURGEON: KIMBERLYN RODRÍGUEZ MD DATE OF OPERATION: 08/26/2020 PREOPERATIVE DIAGNOSIS: Osteomyelitis, left knee. POSTOPERATIVE DIAGNOSIS: Osteomyelitis, left knee. PROCEDURE PERFORMED: 1. Incision and debridement of left knee (skin, subcutaneous tissue, bone). 2. Application of wound VAC, left knee (greater than 50 cm-squared). INDICATIONS FOR THE PROCEDURE: Ms. Mcnally is a 44-year-old female who was admitted with a draining wound from the left knee 2 days ago. She has a history of diabetes and end-stage renal disease and is a resident of a prison facility in [place]. She has been there for a number of years now where they have been caring for her and she reports just developing abscess along the medial aspect of the leg 1 month ago. The abscess was drained and I have been performing local wound changes. X-ray was obtained that showed bony destruction of the knee. She was transferred here for definitive care. She also has an incision extending up her thigh from previous staph infection in the leg. I talked with her about her condition, although the operative history is a little vague. Arrangements were made for her to come to the OR today for debridement of the knee and determination of the extent of infection and further procedures. Risks, benefits and alternatives of surgery were discussed with the patient and consent was obtained. DESCRIPTION OF PROCEDURE: The patient was met in the holding area where her identity and confirmation of the procedure was performed. The left lower extremity was marked. She was taken to the operating room where she was placed supine on the operating table. Anesthesia was administered. Tourniquet was applied to left thigh and left leg was prepped and draped in a sterile fashion. The patient was on scheduled antibiotics; therefore, did not receive any immediately preop. A timeout was performed before initiating the case. On initiation of the case, the leg was gravity exsanguinated and the tourniquet was raised. Total tourniquet time was 26 minutes. The previous incision is located along the medial thigh. There was an open wound at the distal end of this incision just along the medial femoral condyle. The wound and tunnel tissue was debrided and excised. Specimen was sent to surgical pathology. Separate incision was then made over the anterior knee. We incised through the skin and subcutaneous tissues down to the extensor mechanism. We were then able to elevate the tissues medially and a medial parapatellar approach was utilized for exposure. On entering the knee, there were significant adhesions in the knee under the patella and bony destruction along the medial aspect of the knee. There was some purulence in this area, but we also found the area of purulence just lateral to the patellar tendon that extended down to the tibia and posterior. The cultures were obtained from these wounds for Gram stain, aerobic, anaerobic and DNA analysis. The devitalized tissue was debrided. On the medial aspect of the knee, there was found to be packing strips contained within the bony pieces. Rongeur was used to debride these areas as well as the underlying soft tissues. Knee was irrigated thoroughly with saline. There was significant destruction of the medial femoral condyle, medial tibial plateau and the knee joint. The patella was adhered down to the underlying tissues and was unable to be mobilized. I was able to still range her knee, but it was unstable OPERATIVE REPORT [id number] SAUL MCNALLY and settled into a varus position, which had been ongoing for some time now. After thorough debridement was performed, a wound VAC was placed over the knee. The wound measured 17 x 7 cm. Compression was confirmed and the knee was covered with a dressing. She was then turned back over to anesthesia where she was awakened, extubated, and taken to recovery room in stable condition. POSTOPERATIVE PLAN: The patient is going to return to the floor for continued postoperative care. We will continue her IV antibiotics and follow her culture and tissue results. This infection has been going on for some time now and she has extensive destruction of the bone and tissue around the knee. I do not believe there are any good salvage procedures and our options will be suppression with continuous antibiotics or above-knee amputation. I will need to talk with her about this and we can determine how we are going to proceed from there. ANESTHESIA: General. COMPLICATIONS: None. ESTIMATED BLOOD LOSS: 25 mL. TRANSINT:[id number] Voice Confirmation ID: [id number] DOCUMENT ID: [id number] KIMBERLYN RODRÍGUEZ MD at 6309 CC: [id number] DICTATION DATE: 08/26/20 9356 CIVIL ATTORNEY: 08/27/20 0031 DIS IN 09/02/20 [facility] [address] [place] [address]
--- NOTE | 2020-09-03 19:09 | MORECARE ---
CASE MANAGEMENT DISCHARGE SUMMARY PATIENT: SAUL MCNALLY UNIT: [id number] ADM DATE: 08/24/20 AGE: 45 : [birth year] SEX: F ROOM/BED: D.5218 AUTHOR: DARRIN STEVE PHYSICIAN: REFERRING PHYSICIAN: KATIE FLYNN MD DATE OF SERVICE: 09/03/20 Discharge Plan Patient Name: SAUL MCNALLY Facility: [facility] : 1975 Planned Disposition: [facility] Facility Anticipated Discharge Date: Discharge Date: 09/02/2020 Expected LOS: Initial Reviewer: [email or web address] Initial Review Date: 08/24/2020 Generated: 09/03/20 8:08 pm Comments DCP- Discharge Planning Updated by [email or web address]: Greta Sargent on 09/02/20 11:[address] Patient Name: SAUL MCNALLY Encounter No: [id number] : 1975 Primary Insurance: MEDICARE A & B Anticipated DC Date: Planned Disposition: [facility] Facility External Planned Provider: : DCP follow-up note: CM spoke with patient about pending dc. Pt is in agreement to return to [place]. CM called facility at [phone] about transportation. The patient will return in a [facility] bed, and will require EMS transportation. Nursing can call report to Dania Beckett at [phone]. DC IMM delivered via doorway, explained, and placed in chart. Form also left with the patient. Patient and family in agreement with discharge plan. No changes to plan. Case management will follow and assist as needed. Greta Sargent DCP- Discharge Planning Updated by [email or web address]: Greta Sargent on 09/01/20 7:[address] Patient Name: SAUL MCNALLY Encounter No: [id number] : 1975 Primary Insurance: MEDICARE A & B Anticipated DC Date: Planned Disposition: External Planned Provider: : DCP follow-up note: CM called [place] [facility] at [phone] and spoke with Alyx. CM faxed clinical updates to Noelle at [phone]. Case management will follow and assist as needed. Greta Johnstonds Coverage Notice Reviewer: [id number] - Greta Sargent Notice Issued Date-Time: 09/02/2020 12:10 Notice Type: IM Discharge Notice Notice Delivered To: Patient Relationship to Patient: Self Plastics Tooling Engineer Name: Delivery Method: HAND - Hand Delivered Cleo Days: Prior Verbal Notification: Yes Recipient Understood Notice: Yes Recipient Signature: Med Rec Note Co-signed by Attending: Coverage Notice Comment: provided to doorway. copy provided to pt via nurse. Last DP export: 09/02/20 11:40 a Patient Name: SAUL MCNALLY Page [id number] at 1909 All edits/amendments must be made on the electronic document DICTATION DATE: 09/03/201907 PRESS AND BLOW MACHINE TENDER: LENORE 09/03/201907 RPT#: [id number] DC DATE:09/02/20 STATUS: DIS IN [place] [address] [place] [address] END OF REPORT
== END 2020-09-02 19:36 | DRG 474 ==
LOC: D.M2 21:18
PROVIDERS: Family Medicine; Internal Medicine Nephrology; Orthopaedic Surgery; ADMIT Family Medicine Adult Medicine; ATTEND Family Medicine Adult Medicine
PROC: 0QBH0ZZ Excision of Left Tibia, Open Approach (ICD-10-PCS; 2020-08-26)
PROC: 0QB90ZZ Excision of Left Femoral Shaft, Open Approach (ICD-10-PCS; 2020-08-26 10:15)
PROC: 0Y6D0Z2 Detachment at Left Upper Leg, Mid, Open Approach (ICD-10-PCS; principal; 2020-08-30 08:45)
DX: M00.062 Staphylococcal arthritis, left knee (principal); N18.6 End stage renal disease; M86.8X6 Other osteomyelitis, lower leg; I13.2 Hypertensive heart and chronic kidney disease with heart failure and with stage 5 chronic kidney disease, or end stage renal disease; I50.42 Chronic combined systolic (congestive) and diastolic (congestive) heart failure; E11.69 Type 2 diabetes mellitus with other specified complication; B95.62 Methicillin resistant Staphylococcus aureus infection as the cause of diseases classified elsewhere; E11.22 Type 2 diabetes mellitus with diabetic chronic kidney disease; K21.9 Gastro-esophageal reflux disease without esophagitis; F41.8 Other specified anxiety disorders; E78.5 Hyperlipidemia, unspecified; E11.43 Type 2 diabetes mellitus with diabetic autonomic (poly)neuropathy; K31.84 Gastroparesis; G47.00 Insomnia, unspecified; Z86.73 Personal history of transient ischemic attack (TIA), and cerebral infarction without residual deficits

== ENCOUNTER → 2021-03-09 10:47 | Outpatient (CLI) | payer MEDICARE ==
[2020-11-12 13:29] VITALS: BMI 28.6
[~2021-03-09 10:47] MED LIST changes: +ATIVAN0.5 MG PO; +BUSPAR 15 MG TA15 MG PO; +CLARITIN 10 MG10 MG PO; +HUMULIN R100 UNIT/1 SC; +HYDRALAZINE HCL50 MG PO; +HYDROXYZINE HCL10 MG PO; +NORCO 7.5-3251 EACH PO; +PEPCID AC20 MG PO; +RENVELA800 MG PO; +VIC-FORTE CAPSUL1 MG PO; +VITAMIN B-1100 M1 PO; +ZINC-220220 MG PO
== END | disposition home or self-care (01) ==
LOC: D.CT 10:47
PROVIDERS: ATTEND Internal Medicine Nephrology
DX: L97.818 Non-pressure chronic ulcer of other part of right lower leg with other specified severity (principal)